=== PATIENT | male | born 1980 | race Caucasian/White ===

== ENCOUNTER 2018-05-10 07:34 | Day surgery (SDC) | payer BC ==
[2018-05-05 11:28] VITALS: BMI 21.7
[~2018-05-10 07:34] MED LIST: LACTATED RINGERS 1,000 ML IV SCH
[2018-05-10 07:52] VITALS: RESP 16; TEMP 98.4
[2018-05-10] MEDS ORDERED: PROPOFOL 10 MG/ML 20 ML VIAL IV ONE (09:17)
[2018-05-10] MEDS ORDERED: LIDOCAINE 1% INJ 10MG/ML (20 ML MDV) ONE (09:17)
--- NOTE | 2018-05-10 09:34 | P.GSHP ---
History of Present Illness H&P Date: 05/10/18 Chief Complaint: GI bleed Is a 38-year-old male from Dr. Hebert Jackson. Patient's a history of GI bleed. Today for EGD and colonoscopy. Past Medical History Past Medical History: GI Bleed Additional Past Medical History / Comment(s): rectal bleeding; nausea/vomiting History of Any Multi-Drug Resistant Organisms: None Reported Past Surgical History: No Surgical Hx Reported Additional Past Surgical History / Comment(s): Colonoscopy/EGD Past Anesthesia/Blood Transfusion Reactions: No Reported Reaction Smoking Status: Current every day smoker - Past Family History Father Family Medical History: Coronary Artery Disease (CAD), Hypertension, Myocardial Infarction ([place]) Mother History Unknown: Yes Family Medical History: No Reported History Medications and Allergies Home Medications Medication Instructions Recorded Confirmed Type Ranitidine HCl 150 mg PO BID 05/05/18 05/10/18 History buPROPion HCL [Wellbutrin XL] 300 mg PO DAILY 05/05/18 05/10/18 History Allergies Allergy/AdvReac Type Severity Reaction Status Date / Time No Known Allergies Allergy Verified 05/10/18 07:44 Surgical - Exam Vital Signs Temp Pulse Resp BP Pulse Ox 98.4 F 76 16 141/76 98 05/10/18 07:51 05/10/18 07:51 05/10/18 07:51 05/10/18 07:51 05/10/18 07:51 - General well developed, no distress - Eyes PERRL - ENT normal pinna - Neck no masses - Respiratory normal expansion - Cardiovascular Rhythm: regular - Abdomen Abdomen: soft, non tender Assessment and Plan Assessment: GI bleed. We'll perform EGD and colonoscopy.
--- NOTE | 2018-05-10 09:56 | P.OP ---
Date of Procedure: 05/10/18 Preoperative Diagnosis: GI bleed Postoperative Diagnosis: Hemorrhoids Antral gastritis Hiatal hernia Mild esophagitis Procedure(s) Performed: EGD Colonoscopy Anesthesia: MAC Surgeon: Ameya Tobar Pathology: other (Antrum, esophagus) Condition: stable Disposition: PACU Description of Procedure: The patient's placed on the endoscopy table in the lateral position. He received IV sedation. Digital rectal exam was performed which revealed external hemorrhoids. Flexible colonoscope was then placed patient anus passed rotator entire colon. The ileocecal valve was visualized. Cecum, ascending and transverse colon appeared normal. In the descending sigmoid colon there was no evidence of diverticulosis. Scope was brought back the rectum this appeared normal. Scope was withdrawn through the anus and some internal hemorrhoids are seen. There is no evidence of any active GI bleed. It was thought that the patient most likely had some bleeding from his hemorrhoids. Next the gastroscope placed oropharynx passed in the esophagus and stomach. Scope the pylorus. The first and second portion of the duodenum appeared normal. Scope was then brought back the antrum appeared mildly inflamed. A biopsies performed. Scope was then retroflexed the remainder some appeared normal. There was a small hiatal hernia. The GE junction was at 38 cm through the distal esophagus appeared mildly inflamed a biopsies performed. The proximal esophagus appeared normal. Scope was withdrawn for patient.
[2018-05-10 10:17] VITALS: BP 109/68; PULSE 76
== END 2018-05-10 10:50 | disposition home or self-care (01) ==
LOC: ORWHC2ENDO 07:34
PROVIDERS: ATTEND Surgery
DX: K20.0 Eosinophilic esophagitis (principal); K29.60 Other gastritis without bleeding; K44.9 Diaphragmatic hernia without obstruction or gangrene; K64.8 Other hemorrhoids; K64.4 Residual hemorrhoidal skin tags; F17.210 Nicotine dependence, cigarettes, uncomplicated; Z79.899 Other long term (current) drug therapy
CPT/HCPCS: 88305; 45378; 43239; J2001; J2704

== ENCOUNTER → 2018-05-23 | Outpatient (CLI) | payer BC ==
[2018-05-23 13:43] LABS: Basophils % (A) 0 %; Eosinophils # (A) 0.3 k/uL (0-0.7); Eosinophils % (A) 4 %; HCT 42.4 % (39.0-53.0); HGB 13.7 gm/dL (13.0-17.5); Lymphocytes # (A) 1.5 k/uL (1.0-4.8); Lymphocytes % (A) 25 %; MCH 30.6 pg (25.0-35.0); MCHC 32.3 g/dL (31.0-37.0); MCV 94.6 fL (80.0-100.0); Mean Platelet Volume 7.2; Monocytes # (A) 0.3 k/uL (0-1.0); Monocytes % (A) 5 %; Neutrophils % (A) 64 %; Platelet Count 213 k/uL (150-450); RBC 4.48 m/uL (4.30-5.90); RDW 14.4 % (11.5-15.5); WBC 6.2 k/uL (3.8-10.6)
== END ==
LOC: LABPAT 12:16
PROVIDERS: ATTEND Surgery
DX: Z01.812 Encounter for preprocedural laboratory examination (principal); D64.9 Anemia, unspecified; K21.9 Gastro-esophageal reflux disease without esophagitis; F17.200 Nicotine dependence, unspecified, uncomplicated
CPT/HCPCS: 36415; 85025

== ENCOUNTER 2018-05-31 11:33 | Observation (INO) | payer BC ==
[2018-05-23 10:47] VITALS: BMI 21.7
[~2018-05-31 11:33] MED LIST changes: +DEXAMETHASONE SOD PHOSPHATE 10 MG/ML 1 ML VIAL IV ONE; +HEPARIN SODIUM,PORCINE 5,000 UNIT/ML 1 ML VIAL SQ ONE; -LACTATED RINGERS 1,000 ML IV SCH; +LIDOCAINE 1% 20 ML VIAL (10MG/ML) FOR IV START INTRADERMA PRN; +MIDAZOLAM 2 MG/2 ML VIAL IV PRN; +ONDANSETRON 4 MG/2 ML VIAL IVP ONE; +SCOPOLAMINE 1.5MG/72HR PATCH TRANSDERM ONE; +ceFAZolin IN SWFI 2 GM/20 ML SYRINGE IVP ONE
[2018-05-31] MEDS ORDERED: SUCCINYLCHOLINE CHLORIDE 100 MG/5 ML SYR IV ONE (12:09)
[2018-05-31] MEDS ORDERED: KETAMINE 10 MG/ML 20 ML VIAL ONE (12:09)
[2018-05-31] MEDS ORDERED: GLYCOPYRROLATE 0.2 MG/ML 2 ML VIAL ONE (12:09)
[2018-05-31] MEDS ORDERED: NEOSTIGMINE 1 MG/ML 10 ML VIAL ONE (12:09)
[2018-05-31] MEDS ORDERED: LIDOCAINE 1% INJ 10MG/ML (20 ML MDV) ONE (12:09)
[2018-05-31] MEDS ORDERED: PROPOFOL 10 MG/ML 20 ML VIAL IV ONE (12:09)
[2018-05-31] MEDS ORDERED: MIDAZOLAM 2 MG/2 ML VIAL ONE (12:09)
[2018-05-31] MEDS ORDERED: ROCURONIUM BROMIDE 10 MG/ML 10 ML VIAL IV ONE (12:09)
[2018-05-31] MEDS ORDERED: ePHEDrine SULFATE/0.9% NACL/PF 50 MG/5 ML SYRINGE IV ONE (12:09)
[2018-05-31] MEDS ORDERED: fentaNYL (PF) 50 MCG/ML 2 ML AMP ONE (12:09)
[2018-05-31] MEDS: LACTATED RINGERS 1,000 ML IV SCH (12:20)
--- NOTE | 2018-05-31 13:00 | P.ONQ ---
Anesthesiology Proc Note - PNB - Peripheral Nerve Block Performed Transversus Abdominis Procedure Start Time: 12:28 Procedure Stop Time: 12:33 Indication: Acute Post-Operative Pain, Requested by physician Sedation Type: Sedate with meaningful contact maintained Preparation: Sterile Prep Position: Supine Catheter: None Needle Types: On-Q Needle Size: 50mm (2") Needle Gauge: 20 Technique: Ultrasound Injectate: Other (see comment) (ropivacaine 0.375% 20cc on each side (40cc total )) Blood Aspirated: No Pain Paresthesia on Injection Noted: No Resistance on Injection: Normal Events: Uneventful and Well Tolerated
--- NOTE | 2018-05-31 14:52 | P.GSHP ---
History of Present Illness H&P Date: 05/31/18 Chief Complaint: GERD This is a 38-year-old male referred from Dr. Caldwell. MThe patient has had long- standing problems with reflux esophagitis. The patient underwent recent EGD is found have evidence of esophagitis. Patient has been well informed on the procedure of laparoscopic Natalie fundoplication. The patient is aware the risk of the conversion to the open procedure, risk of injury to the stomach, liver and spleen. The patient is also a risk of recurrent GERD and dysphagia symptoms. The patient understands there is a postoperative diet of full liquids for 2 weeks after surgery. Past Medical History Past Medical History: GI Bleed Additional Past Medical History / Comment(s): rectal bleeding; nausea/vomiting. HIATAL HERNIA. ABSCESSES IN MOUTH-DR. MG EDWARD PER PT. LESION REMOVED FROM LT CREASE OF MOUTH History of Any Multi-Drug Resistant Organisms: None Reported Past Surgical History: No Surgical Hx Reported Additional Past Surgical History / Comment(s): Colonoscopy/EGD. HAVING TEETH PULLED 05/26/18 Past Anesthesia/Blood Transfusion Reactions: No Reported Reaction Smoking Status: Current every day smoker - Past Family History Father Family Medical History: Coronary Artery Disease (CAD), Hypertension, Myocardial Infarction ([place]) Mother History Unknown: Yes Family Medical History: No Reported History Medications and Allergies Home Medications Medication Instructions Recorded Confirmed Type Ranitidine HCl 150 mg PO BID 05/05/18 05/31/18 History buPROPion HCL [Wellbutrin XL] 300 mg PO DAILY 05/05/18 05/31/18 History Allergies Allergy/AdvReac Type Severity Reaction Status Date / Time No Known Allergies Allergy Verified 05/31/18 12:07 Surgical - Exam Vital Signs Temp Pulse Resp BP Pulse Ox 98.2 F 76 16 115/68 100 05/31/18 12:42 05/31/18 12:42 05/31/18 12:42 05/31/18 12:42 05/31/18 12:42 - General well developed, no distress - Eyes PERRL - ENT normal pinna - Neck no masses - Respiratory normal expansion - Cardiovascular Rhythm: regular - Abdomen Abdomen: soft, non tender Assessment and Plan Assessment: GERD. We'll perform laparoscopic Natalie fundoplication.
[2018-05-31] MEDS ORDERED: BUPIVACAIN-EPI 0.5%-1:200,000 30 ML VIAL SQ ONE (15:32)
--- NOTE | 2018-05-31 16:06 | P.OP ---
Date of Procedure: 05/31/18 Preoperative Diagnosis: GERD Postoperative Diagnosis: GERD Procedure(s) Performed: Laparoscopic Natalie fundal plication Anesthesia: JERZYA Surgeon: Ameya Tobar Estimated Blood Loss (ml): 5 Pathology: none sent Condition: stable Disposition: PACU Description of Procedure: Harmonic Natalie
[2018-05-31] MEDS: HYDROmorphone 0.5 MG/0.5 ML SYRINGE IVP PRN ×4 (16:45→17:08)
[2018-05-31] MEDS ORDERED: fentaNYL (PF) 50 MCG/ML 2 ML AMP IV ONE (17:05)
[2018-05-31] MEDS: fentaNYL (PF) 50 MCG/ML 2 ML AMP IV ONE ×3 (17:20→17:30)
[2018-05-31] MEDS: METOCLOPRAMIDE 5 MG/ML 2 ML VIAL IVP SCH (18:52)
[2018-05-31] MEDS: D5-0.45% NACL WITH KCL 20MEQ/L 1,000 ML IV SCH (22:35)
[2018-05-31] MEDS: HYDROmorphone 1 MG/ML 1 ML SYRINGE IVP PRN (22:58)
[2018-06-01] MEDS: METOCLOPRAMIDE 5 MG/ML 2 ML VIAL IVP SCH ×3 (00:37→13:54)
[2018-06-01] MEDS: HYDROmorphone 1 MG/ML 1 ML SYRINGE IVP PRN ×2 (03:24→08:12)
[2018-06-01] MEDS: D5-0.45% NACL WITH KCL 20MEQ/L 1,000 ML IV SCH ×2 (05:33→13:54)
[2018-06-01] MEDS: LACTATED RINGERS 1,000 ML IV SCH (07:05)
[2018-06-01 07:45] LABS: Basophils % (A) 0 %; Eosinophils % (A) 0 %; HCT 35.1 % (39.0-53.0); HGB 11.8 gm/dL (13.0-17.5); Lymphocytes # (A) 1.5 k/uL (1.0-4.8); Lymphocytes % (A) 21 %; MCH 31.3 pg (25.0-35.0); MCHC 33.5 g/dL (31.0-37.0); MCV 93.5 fL (80.0-100.0); Mean Platelet Volume 7.4; Monocytes # (A) 0.3 k/uL (0-1.0); Monocytes % (A) 5 %; Neutrophils # (A) 5.4 k/uL (1.3-7.7); Neutrophils % (A) 73 %; Platelet Count 169 k/uL (150-450); RBC 3.75 m/uL (4.30-5.90); RDW 14.5 % (11.5-15.5); WBC 7.3 k/uL (3.8-10.6)
[2018-06-01 08:38] VITALS: BP 119/82; PULSE 71; RESP 18; TEMP 97.7
[2018-06-01] MEDS ORDERED: buPROPion XL 300 MG TAB.ER.24H PO SCH (09:00)
[2018-06-01] MEDS ORDERED: ENOXAPARIN 40 MG/0.4 ML SYRINGE SQ SCH (09:00)
[2018-06-01] MEDS ORDERED: NICOTINE 14MG/24HR PATCH TRANSDERM SCH (09:00)
--- NOTE | 2018-06-01 10:29 | FL ---
EXAMINATION TYPE: FL esophagus cervic/pharynx DATE OF EXAM: 06/01/2018 HISTORY: Status post Natalie fundoplication. COMPARISON: NONE TECHNIQUE: A double contrast esophagram is performed utilizing air and barium. 15 mL of Isovue-370 was given. 48 seconds of fluoroscopy time was utilized with 13 images saved. FINDINGS: The patient swallowed contrast without difficulty or delay. Esophageal peristalsis and mo tility are within normal limits. There is good flow of contrast along the diaphragmatic hiatus into t he stomach, there is no evidence of contrast extravasation to suggest leak. No persistent hiatal blnaca ia is seen. Patient remains asymptomatic. IMPRESSION: No evidence of leak or significant obstruction status post Demar fundoplication.
--- NOTE | 2018-06-01 10:32 | P.CONS ---
History of Present Illness - Reason for Consult Consult date: 06/01/18 Medical management Requesting physician: Ameya Tobar - Chief Complaint GERD - History of Present Illness 38-year-old male who underwent elective laparoscopic Natalie fundoplication on 05/31/[address] Caldwell was consulted for medical management. The patient has a history of gastroesophageal reflux disease, anxiety, and depression. He is a current cigarette smoker and reports smoking between half and one pack per day. The patient had abscesses in his mouth and had multiple front teeth removed recently. The patient was seen and examined at the bedside this morning with Dr. Caldwell. Patient is awake and alert. He states his abdomen feels sore but his pain is tolerable at this time. He has been tolerating ice chips and sips of water. He is scheduled for a swallow evaluation with fluoroscopy today to rule out leak /obstruction. Hemoglobin 11.8. Vital signs have been stable. He is afebrile. The patient is anticipating discharge home this afternoon today. Review of Systems Those systems with pertinent positive or pertinent negative responses have been documented in the HPI Past Medical History Past Medical History: GI Bleed Additional Past Medical History / Comment(s): rectal bleeding; nausea/vomiting. HIATAL HERNIA. ABSCESSES IN MOUTH-DR. TOBAR AWATE PER PT. LESION REMOVED FROM LT CREASE OF MOUTH History of Any Multi-Drug Resistant Organisms: None Reported Past Surgical History: No Surgical Hx Reported Additional Past Surgical History / Comment(s): Colonoscopy/EGD. HAVING TEETH PULLED 05/26/18 Past Anesthesia/Blood Transfusion Reactions: No Reported Reaction Past Psychological History: Anxiety, Depression Smoking Status: Former smoker Past Alcohol Use History: None Reported Additional Past Alcohol Use History / Comment(s): has smoked about 1 1/2 ppd for about 20 years; smokes Marijuana daily Past Drug Use History: Marijuana Additional Drug Use History / Comment(s): LAST USED MARIJUANA 1 WEEK AGO- INSTRUCTED TO REFRAIN FROM USE FOR AT LEAST 24 HOURS PRIOR TO PROCEDURE. Pt. reports the last time he smoked marijuana WAS 05/29 - Past Family History Father Family Medical History: Coronary Artery Disease (CAD), Hypertension, Myocardial Infarction ([place]) Mother History Unknown: Yes Family Medical History: No Reported History Medications and Allergies Home Medications Medication Instructions Recorded Confirmed Type Ranitidine HCl 150 mg PO BID 05/05/18 06/01/18 History buPROPion HCL [Wellbutrin XL] 300 mg PO DAILY 05/05/18 06/01/18 History Allergies Allergy/AdvReac Type Severity Reaction Status Date / Time No Known Allergies Allergy Verified 06/01/18 09:36 Physical Exam Vitals: Vital Signs Temp Pulse Resp BP BP Pulse Ox 06/01/18 08:05 97.7 F 71 18 119/82 99 05/31/18 23:00 98.2 F 60 16 110/71 97 05/31/18 20:48 62 117/73 96 05/31/18 20:34 69 102/65 97 05/31/18 20:18 72 108/69 05/31/18 20:03 75 114/70 96 05/31/18 19:48 92 119/80 96 05/31/18 19:33 62 109/65 05/31/18 19:18 65 113/69 95 05/31/18 19:03 71 118/73 99 05/31/18 18:45 77 125/70 05/31/18 18:36 97.8 F 80 12 119/79 05/31/18 17:45 75 14 122/70 100 05/31/18 17:30 71 14 116/70 100 05/31/18 17:15 81 14 130/80 100 05/31/18 17:00 73 14 130/79 100 05/31/18 16:45 76 14 124/76 98 05/31/18 16:31 67 14 134/75 98 05/31/18 16:15 62 14 134/76 98 05/31/18 16:08 97.8 F 66 14 137/71 98 05/31/18 12:42 98.2 F 76 16 115/68 100 Intake and Output 05/31/18 06/01/18 06/01/18 22:59 06:59 14:59 Intake Total 800 Output Total 10 650 500 Balance 790 -650 -500 Intake: IV 800 Output: Urine 650 500 Estimated Blood Loss 10 Other: # Voids 1 GENERAL: This is a 38-year-old male in no apparent distress at the time of examination. Pleasant and cooperative. HEENT: Head is atraumatic, normocephalic. Pupils are equal, round, and reactive to light. Sclerae anicteric. Conjunctivae are clear. Mucus membranes of the mouth are moist. Neck is supple. Poor dentition with recent extraction noted. RESPIRATORY: Clear to ausculation. No wheezes, rales, or rhonchi. No use of accessory muscles. Patient maintaining oxygen saturation greater than 92%. No chest wall tenderness is noted on palpation or with deep breathing. CARDIOVASCULAR: Regular rate and rhythm. S1 and S2 noted. No JVD noted. No S3 or S4 noted. GASTROINTESTINAL: I prescribed Surgical sites without drainage. No distention noted. Abdomen soft and round. Hypoactive bowel sounds auscultated x 4 quadrants. Mild tenderness noted upon palpation. INTEGUMENTARY: No cyanosis. No jaundice. No rashes noted. No cellulitis noted. EXTREMITIES: 2+ peripheral pulses. No evidence of peripheral edema. No calf tenderness noted. NEUROLOGIC: Cranial nerves II-XII intact. PSYCHIATRIC: Awake, alert, and oriented X 3. Appropriate affect. Intact judgement and insight. Results CBC & Chem 7: 06/01/18 06:37 Labs: Abnormal Lab Results - Last 24 Hours (Table) 06/01/18 Range/Units 06:37 RBC 3.75 L (4.30-5.90) m/uL Hgb 11.8 L (13.0-17.5) gm/dL Hct 35.1 L (39.0-53.0) % Assessment and Plan Plan: ASSESSMENT: Gastroesophageal reflux disease status post laparoscopic Natalie fundoplication Multiple dental abscesses with recent tooth extractions History of anxiety and depression History of nicotine dependence, patient reports smoking 1/2-1 pack daily Cannabis use PLAN: Continue postoperative surgical care per Dr. Tobar Will order nicotine patch daily Home meds as appropriate Monitor labs Monitor vital signs and address as appropriate Further recommendations pending patient's course Patient is cleared for discharge from a medical standpoint when cleared by admitting/attending physician Thank you for this consultation We will continue to follow along with Xavier during his hospitalization Nurse practitioner note has been reviewed by physician. Signing provider agrees with the documented findings, assessment, and plan of care.
--- NOTE | 2018-06-01 11:46 | P.DS ---
Providers Date of admission: 06/01/18 06:39 Expected date of discharge: 06/01/18 Attending physician: Ameya Tobar Consults: 06/01/18 08:18 Consult Physician Urgent Consulting Provider: Hebert Caldwell Consult Reason/Comments: [facility] [place] Do you want consulting provider notified?: Yes Primary care physician: Hebert [facility] Course: 38-year-old male who presents in [place] basis to undergo laparoscopic natalie procedure for long-standing problem with reflux esophagitis. Patient underwent a recent EGD and was found have evidence of esophagitis. Patient underwent procedure on May 31 laparoscopic natalie fundoplication for symptomatic esophageal reflux. No postop events. Patient was ambulatory on the unit tolerating a natalie clear liquid diet Esophagram no evidence of a leak significant obstruction Impression discharge diagnosis Symptomatic reflux esophagitis Recent EGD showing evidence of esophagitis Status post May 31 laparoscopic Natalie fundoplication for symptomatic esophageal reflux disease The above impression and plan of care have been discussed and directed by signing physician. Yarely Haynes nurse practitioner acting as scribe for signing physician. Plan - Discharge Summary Discharge Rx Participant: Yes New Discharge Prescriptions: New HYDROcodone/APAP 5-325MG [[place] 5-325] 1 tab PO Q6HR PRN 3 Days #12 tab PRN Reason: Mild Breakthrough Pain Continue buPROPion HCL [Wellbutrin XL] 300 mg PO DAILY Ranitidine HCl 150 mg PO BID Discharge Medication List Ranitidine HCl 150 mg PO BID 05/05/18 [History] buPROPion HCL [Wellbutrin XL] 300 mg PO DAILY 05/05/18 [History] HYDROcodone/APAP 5-325MG [[place] 5-325] 1 tab PO Q6HR PRN 3 Days #12 tab [Rx] Follow up Appointment(s)/Referral(s): Ameya Tobar MD [STAFF PHYSICIAN] - 1 Week Activity/Diet/Wound Care/Special Instructions: No tub bath for six weeks. Shower daily. No lifting over 10 pounds for the next 4 weeks. Did not remove plastic surgical dressings May use ice packs to surgical site. No driving while taking narcotic for pain. Discharge Disposition: HOME SELF-CARE
== END 2018-06-01 14:48 | disposition home or self-care (01) ==
LOC: OR 11:33 → 4SSUR 17:27 → OR 06-01 06:39
PROVIDERS: ADMIT Surgery; ATTEND Surgery
DX: K21.0 Gastro-esophageal reflux disease with esophagitis (principal); K44.9 Diaphragmatic hernia without obstruction or gangrene; F17.210 Nicotine dependence, cigarettes, uncomplicated; F32.9 Major depressive disorder, single episode, unspecified; F41.9 Anxiety disorder, unspecified; F12.90 Cannabis use, unspecified, uncomplicated; K04.7 Periapical abscess without sinus; Z98.818 Other dental procedure status; Z79.899 Other long term (current) drug therapy; Z87.19 Personal history of other diseases of the digestive system; Z82.49 Family history of ischemic heart disease and other diseases of the circulatory system
CPT/HCPCS: 85025; 74210; 43280; 64488; G0378; S4990; J2250; J1644; J1100; J2710; J2765 ×2; J2405; J2001; J1650; J3010; J1170 ×3; J0330; J2704; J0690; Q9967; 86850; 86900; 86901

== ENCOUNTER → 2018-07-20 | Outpatient (CLI) | payer BC ==
--- NOTE | 2018-07-20 11:44 | FL ---
EXAMINATION TYPE: FL barium swallow DATE OF EXAM: 07/20/2018 LIMITED UGI-ESOPHAGRAM: CLINICAL HISTORY: Dysphasia and vomiting with solid food since Demar fundoplication surgery June 01, 2018 TECHNIQUE: Limited esophagram is performed utilizing 10 oz of ez Paque. A total of 31 seconds of flu oroscopic time was utilized during procedure. 15 spot images are saved to PACS. FINDINGS: The patient swallowed contrast without difficulty or delay. Esophageal peristalsis and mo tility are within normal limits. There is good flow of contrast along the diaphragmatic hiatus into t he stomach with adjacent surrounding sutures seen just below diaphragm, there is no evidence of contr ast extravasation to suggest leak. No persistent hiatal hernia is seen. Patient remains asymptomatic. IMPRESSION: No evidence of leak or significant obstruction status post Demar fundoplication surgery . Images saved for ordering surgeon.
== END | disposition home or self-care (01) ==
LOC: RADFLWHC 10:49
PROVIDERS: ATTEND Surgery
DX: R13.10 Dysphagia, unspecified (principal); K21.9 Gastro-esophageal reflux disease without esophagitis; Z98.890 Other specified postprocedural states
CPT/HCPCS: 74220

== ENCOUNTER 2018-07-25 07:41 | Day surgery (SDC) | payer BC ==
[2018-07-20 14:54] VITALS: BMI 20.3
[~2018-07-25 07:41] MED LIST changes: -DEXAMETHASONE SOD PHOSPHATE 10 MG/ML 1 ML VIAL IV ONE; -HEPARIN SODIUM,PORCINE 5,000 UNIT/ML 1 ML VIAL SQ ONE; +LACTATED RINGERS 1,000 ML IV SCH; -MIDAZOLAM 2 MG/2 ML VIAL IV PRN; -ONDANSETRON 4 MG/2 ML VIAL IVP ONE; -SCOPOLAMINE 1.5MG/72HR PATCH TRANSDERM ONE; -ceFAZolin IN SWFI 2 GM/20 ML SYRINGE IVP ONE
[2018-07-25 08:05] VITALS: TEMP 97.8
[2018-07-25] MEDS ORDERED: LACTATED RINGERS 1,000 ML IV ONE (08:05)
[2018-07-25] MEDS ORDERED: PROPOFOL 10 MG/ML 20 ML VIAL IV ONE (08:42)
[2018-07-25] MEDS ORDERED: LIDOCAINE 1% INJ 10MG/ML (20 ML MDV) ONE (08:42)
--- NOTE | 2018-07-25 08:50 | P.GSHP ---
History of Present Illness H&P Date: 07/25/18 Chief Complaint: Dysphagia This is a 38-year-old male who presents for EGD. He's had complaints of dysphagia. Patient had a previous hiatal hernia repair. His recent esophagram shows no evidence of obstruction or reflux. The patient is edentulous. He does not have a lower plate. I believe his problem is due to poor chewing of fluid. Due to the patient's progressive dysphagia. He is undergoing EGD today. Past Medical History Past Medical History: GI Bleed Additional Past Medical History / Comment(s): Hx rectal bleeding; nausea/ vomiting. HIATAL HERNIA. History of Any Multi-Drug Resistant Organisms: None Reported Past Surgical History: No Surgical Hx Reported Additional Past Surgical History / Comment(s): Colonoscopy/EGD Past Anesthesia/Blood Transfusion Reactions: No Reported Reaction Smoking Status: Current every day smoker - Past Family History Father Family Medical History: Coronary Artery Disease (CAD), Hypertension, Myocardial Infarction ([place]) Mother History Unknown: Yes Family Medical History: No Reported History Medications and Allergies Home Medications Medication Instructions Recorded Confirmed Type buPROPion HCL [Wellbutrin SR] 150 mg PO DAILY 07/20/18 07/20/18 History Allergies Allergy/AdvReac Type Severity Reaction Status Date / Time No Known Allergies Allergy Verified 07/20/18 14:49 Surgical - Exam Vital Signs Temp Pulse Resp BP Pulse Ox 97.8 F 78 18 130/80 100 07/25/18 08:04 07/25/18 08:04 07/25/18 08:04 07/25/18 08:04 07/25/18 08:04 - General well developed, no distress - Eyes PERRL - ENT normal pinna - Neck no masses - Respiratory normal expansion - Cardiovascular Rhythm: regular - Abdomen Abdomen: soft, non tender Assessment and Plan Assessment: Dysphagia. We'll perform EGD.
--- NOTE | 2018-07-25 08:59 | P.OP ---
Date of Procedure: 07/25/18 Preoperative Diagnosis: Dysphagia Postoperative Diagnosis: Dysphagia Procedure(s) Performed: EGD with balloon dilatation Anesthesia: MAC Surgeon: Ameya Tobar Pathology: none sent Condition: stable Disposition: PACU Description of Procedure: The patient's placed on the endoscopy table in the lateral position. He received IV sedation. The gastroscope placed oropharynx passed in the esophagus and stomach. Scope was then placed through the pylorus. The first second portion of duodenum appeared normal. Scope was then brought back the antrum and this appeared normal. Scope was then retroflexed and there is no evidence of hiatal hernia. Due to the patient's symptoms and dysphagia a 20 mm balloon was placed across the GE junction and this was held in position for 3 minutes. This was done sequentially twice. This balloon was then removed. There is known to any injury to the stomach or esophagus. The distal esophagus. Normal. The proximal esophagus appeared normal. Scope was withdrawn for patient.
[2018-07-25 09:09] VITALS: RESP 16
[2018-07-25 09:57] VITALS: BP 126/92; PULSE 75
== END 2018-07-25 10:00 | disposition home or self-care (01) ==
LOC: ORWHC2ENDO 07:41
PROVIDERS: ATTEND Surgery
DX: R13.10 Dysphagia, unspecified (principal); F17.200 Nicotine dependence, unspecified, uncomplicated; F39 Unspecified mood [affective] disorder; K92.2 Gastrointestinal hemorrhage, unspecified; Z82.49 Family history of ischemic heart disease and other diseases of the circulatory system; Z79.899 Other long term (current) drug therapy
CPT/HCPCS: 43249; J2001; J2704; C1726

== ENCOUNTER 2019-05-11 14:18 | Emergency (ER) | payer BC ==
[2019-05-11 14:24] VITALS: RESP 18; TEMP 97.6
[2019-05-11 15:01] VITALS: PULSE 80
[2019-05-11] MEDS ORDERED: ONDANSETRON 4 MG/2 ML VIAL IVP STA (15:01)
[2019-05-11] MEDS ORDERED: SODIUM CHLORIDE 0.9% 1,000 ML IV STA (15:01)
[2019-05-11] MEDS ORDERED: MORPHINE SULFATE 4 MG/ML SYRINGE IVP PRN (15:23)
[2019-05-11 15:40] LABS: ALT 41 U/L (21-72); AST 48 U/L (17-59); African American GFR (CKD) >90 (>60 ml/min/1.73 sqM); Albumin 4.9 g/dL (3.5-5.0); Alkaline Phosphatase 45 U/L (38-126); Anion Gap 13 mmol/L; Blood Urea Nitrogen 22 mg/dL (9-20); Calcium 9.6 mg/dL (8.4-10.2); Carbon Dioxide 25 mmol/L (22-30); Chloride 104 mmol/L (98-107); Glucose 83 mg/dL (74-99); Potassium 4.2 mmol/L (3.5-5.1); Sodium 142 mmol/L (137-145); Total Bilirubin 0.5 mg/dL (0.2-1.3); Total Protein 9.2 g/dL (6.3-8.2)
[2019-05-11 15:45] LABS: HCT 42.8 % (39.0-53.0); HGB 15.1 gm/dL (13.0-17.5); MCH 32.5 pg (25.0-35.0); MCHC 35.2 g/dL (31.0-37.0); MCV 92.3 fL (80.0-100.0); Platelet Count 199 k/uL (150-450); RBC 4.64 m/uL (4.30-5.90); RDW 14.3 % (11.5-15.5); WBC 12.6 k/uL (3.8-10.6)
--- NOTE | 2019-05-11 15:50 | ED ---
General Adult HPI - General Chief complaint: Abdominal Pain Stated complaint: Chest Pain Time Seen by Provider: 05/11/19 15:01 Source: patient Mode of arrival: ambulatory Limitations: no limitations - History of Present Illness Initial comments: Dictation was produced using [employer] dictation software. please excuse any grammatical, word or spelling errors. Chief Complaint: 39-year-old male presents with chest pain after eating. History of Present Illness: A 81-year-old male presents with chest pain after eating. Patient states that May last year he had surgery on his hiatal hernia. Surgery was performed by Dr. gerard. Patient reports that ever since his surgery he hasn't been having chest pain symptoms. Today he had some macaroni and cheese when he became significantly nauseated. He was trying to throw power feels like he can't. Patient states he had sharp chest pain. He does complain of some diaphoresis along with his symptoms. His symptoms lasted for several minutes and then resolved on its own. Patient has had his surgery evaluated at multiple occasions. He has had balloon dilatation and multiple upper endoscopies. Patient has had similar symptoms frequently over the course of the last several months. The ROS documented in this emergency department record has been reviewed and confirmed by me. Those systems with pertinent positive or negative responses have been documented in the HPI. All other systems are other negative and/or noncontributory. PHYSICAL EXAM: General Impression: Alert and oriented x3, not in acute distress HEENT: Normocephalic atraumatic, extra-ocular movements intact, pupils equal and reactive to light bilaterally, mucous membranes moist. Cardiovascular: Heart regular rate and rhythm, S1&S2 audible, no murmurs, rubs or gallops Chest: Lungs clear to auscultation bilaterally, no rhonchi, no wheeze, no rales Abdomen: Bowel sounds present, abdomen soft, non-tender, non-distended, no organomegaly Musculoskeletal: Pulses present and equal in all extremities, no peripheral edema Motor: no focal deficits noted Neurological: CN II-XII grossly intact, no focal motor or sensory deficits noted Skin: Intact with no visualized rashes Psych: Normal affect and mood ED course: 39 Old male presents with epigastric abdominal, dry heaving and diaphoresis. Signs upon arrival shows findings within acceptable limits. Patient well-appearing at bedside. EKG does not suggest ST segment elevation LA. Laboratory evaluation obtained. Mild leukocytosis of 12.6. Metabolic panel is unremarkable. Urinalysis is unremarkable. Patient's symptoms are GI related. She is concerned that maybe patient's symptoms were secondary CT abdomen and pelvis was obtained showing mild ileus. Patient was comfortable being discharged with referral to GI. He is well-appearing at bedside. Abdomen is soft. Patient had no episodes of retching all observed in emergency department. He is well-appearing at bedside. Patient currently taking proton pump inhibitor. Patient was offered inpatient observation admission however for to go home. Patient given prescription for antiemetics and analgesics. EKG interpretation: Ventricular rate 93, normal sinus rhythm, GA interval 134, Q 74, QTC 435. No GA prolongation, no QTC prolongation, no ST or T-wave changes noted. No old EKG for comparison. Overall, this EKG is unremarkable - Related Data Home Medications Medication Instructions Recorded Confirmed Ibuprofen [Motrin Ib] 200 - 400 mg PO Q6H PRN 05/11/19 05/11/19 Previous Rx's Medication Instructions Recorded HYDROcodone/APAP 5-325MG [[place] 1 tab PO Q6HR PRN 3 Days #12 tab 05/11/19 5-325] Ondansetron Odt [Zofran Odt] 4 mg PO Q8HR PRN #12 tab 05/11/19 Allergies Allergy/AdvReac Type Severity Reaction Status Date / Time No Known Allergies Allergy Verified 05/11/19 16:25 Review of Systems ROS Statement: Those systems with pertinent positive or pertinent negative responses have been documented in the HPI. ROS Other: All systems not noted in ROS Statement are negative. Past Medical History Past Medical History: GI Bleed Additional Past Medical History / Comment(s): rectal bleeding; nausea/vomiting. HIATAL HERNIA. ABSCESSES IN MOUTH-DR. MG EDWARD PER PT. LESION REMOVED FROM LT CREASE OF MOUTH History of Any Multi-Drug Resistant Organisms: None Reported Past Surgical History: Hernia Repair Additional Past Surgical History / Comment(s): Colonoscopy/EGD. HAVING TEETH PULLED 05/26/18 Past Anesthesia/Blood Transfusion Reactions: No Reported Reaction Past Psychological History: Anxiety, Depression Smoking Status: Current every day smoker Past Alcohol Use History: None Reported Past Drug Use History: Marijuana - Past Family History Father Family Medical History: Coronary Artery Disease (CAD), Hypertension, Myocardial Infarction ([place]) Mother History Unknown: Yes Family Medical History: No Reported History General Exam Limitations: no limitations Course Vital Signs 05/11/19 05/11/19 14:22 14:58 Temperature 97.6 F Pulse Rate 88 80 Respiratory 18 18 Rate Blood Pressure 123/79 117/74 O2 Sat by Pulse 100 100 Oximetry Medical Decision Making - Lab Data Result diagrams: 05/11/19 15:15 05/11/19 15:15 Lab Results 05/11/19 05/11/19 05/11/19 Range/Units 15:15 15:15 16:00 WBC 12.6 H (3.8-10.6) k/uL RBC 4.64 (4.30-5.90) m/uL Hgb 15.1 (13.0-17.5) gm/dL Hct 42.8 (39.0-53.0) % MCV 92.3 (80.0-100.0) fL MCH 32.5 (25.0-35.0) pg MCHC 35.2 (31.0-37.0) g/dL RDW 14.3 (11.5-15.5) % Plt Count 199 (150-450) k/uL Neutrophils % (Manual) 80 % Band Neutrophils % 5 % Lymphocytes % (Manual) 9 % Monocytes % (Manual) 6 % Neutrophils # (Manual) 10.70 H (1.3-7.7) k/uL Lymphocytes # (Manual) 1.13 (1.0-4.8) k/uL Monocytes # (Manual) 0.76 (0-1.0) k/uL Nucleated RBCs 0 (0-0) /100 WBC Manual Slide Review Performed Toxic Granulation Present Hypochromasia (manual) Present Poikilocytosis (manual Present Anisocytosis (manual) Present Sodium 142 (137-145) mmol/L Potassium 4.2 (3.5-5.1) mmol/L Chloride 104 (98-107) mmol/L Carbon Dioxide 25 (22-30) mmol/L Anion Gap 13 mmol/L BUN 22 H (9-20) mg/dL Creatinine 0.86 (0.66-1.25) mg/dL Est GFR (CKD-EPI)AfAm >90 (>60 ml/min/1.73 sqM) Est GFR (CKD-EPI)NonAf >90 (>60 ml/min/1.73 sqM) Glucose 83 (74-99) mg/dL Calcium 9.6 (8.4-10.2) mg/dL Total Bilirubin 0.5 (0.2-1.3) mg/dL AST 48 (17-59) U/L ALT 41 (21-72) U/L Alkaline Phosphatase 45 (38-126) U/L Total Protein 9.2 H (6.3-8.2) g/dL Albumin 4.9 (3.5-5.0) g/dL Lipase 81 (23-300) U/L Urine Color Yellow Urine Appearance Clear (Clear) Urine pH 5.5 (5.0-8.0) Ur Specific [place] 1.030 (1.001-1.035) Urine Protein 1+ H (Negative) Urine Glucose (UA) Negative (Negative) Urine Ketones Trace H (Negative) Urine Blood Negative (Negative) Urine Nitrite Negative (Negative) Urine Bilirubin Negative (Negative) Urine Urobilinogen 2.0 (<2.0) mg/dL Ur Leukocyte Esterase Negative (Negative) Urine RBC 3 (0-5) /hpf Urine WBC 1 (0-5) /hpf Hyaline Casts 4 H (0-2) /lpf Urine Mucus Many H (None) /hpf Disposition Clinical Impression: Abdominal pain Disposition: HOME SELF-CARE Condition: Good Instructions (If sedation given, give patient instructions): Abdominal Pain (ED) Prescriptions: HYDROcodone/APAP 5-325MG [[place] 5-325] 1 tab PO Q6HR PRN 3 Days #12 tab PRN Reason: Severe Pain Ondansetron Odt [Zofran Odt] 4 mg PO Q8HR PRN #12 tab PRN Reason: Nausea Is patient prescribed a controlled substance at d/c from ED?: Yes If prescribed controlled substance>3 days was MAPS reviewed?: Prescribed <3 Days Referrals: Jony Briseno MD [STAFF PHYSICIAN] - 1-2 days Time of Disposition: 17:41
[2019-05-11 16:17] LABS: Appearance,Urine Clear (Clear); Bilirubin,Urine Negative (Negative); Blood,Urine Negative (Negative); Color,Urine Yellow; Glucose,Urine (UA) Negative (Negative); Hyaline Casts,Urine 4 /lpf (0-2); Ketones,Urine Trace (Negative); Leukocyte Esterase,Urine Negative (Negative); Mucus,Urine Many /hpf; Nitrite,Urine Negative (Negative); PH, Urine 5.5 (5.0-8.0); Protein,Urine 1+ (Negative); RBC,Urine 3 /hpf (0-5); WBC,Urine 1 /hpf (0-5)
[2019-05-11 16:20] LABS: Anisocytosis (M) Present; Band Neutrophils % 5 %; Hypochromasia (M) Present; Lymphocytes # (M) 1.13 k/uL (1.0-4.8); Monocytes # (M) 0.76 k/uL (0-1.0); Neutrophils % (M) 80 %; Nucleated Red Blood Cells 0 /100 WBC (0-0); Poikilocytosis (M) Present; Total Cells Counted 100; Toxic Granulation Present
--- NOTE | 2019-05-11 17:05 | CT ---
EXAMINATION TYPE: CT abdomen pelvis w con DATE OF EXAM: 05/11/2019 COMPARISON: None HISTORY: Upper Abdominal pain with Prior Hiatal hernia repair CT DLP: 647.7 mGycm Automated exposure control for dose reduction was used. TECHNIQUE: Helical acquisition of images was performed from the lung bases through the pelvis. CONTRAST: Performed without Oral Contrast and with IV Contrast, patient injected with 100 mL of Isovue 300. FINDINGS: There is subsegmental atelectasis at the posterior lung bases. There is no pleural effusion. Heart si ze is normal. Liver and spleen appear normal. Bile ducts are not dilated. Stomach is intact. There is no evidence o f pancreatic mass. Gallbladder appears normal. There is no adrenal mass. Kidneys show satisfactory contrast opacification. There is no hydronephrosi s. Ureters are not dilated. There is no sign of retroperitoneal adenopathy. Bladder distends smoothly . There is no inguinal hernia. There is no free fluid in the pelvis. There is no ascites or free air. There is no mesenteric edema. There are mild multiple fluid-filled loops of small bowel. I see no si gnificant intestinal wall thickening. Appendix is not seen. There is no sign of thickened appendix. Lumbar spine is intact. Bony pelvis is intact. IMPRESSION: SMALL BOWEL DISTENTION WITH FLUID. I DO NOT SEE EVIDENCE OF A MECHANICAL BOWEL OBSTRUCTION. THIS COUL D RELATE TO SOME ILEUS. NO FREE AIR.
[2019-05-11] MEDS ORDERED: ASPIRIN 81 MG PO STA (17:33)
[2019-05-11 18:05] VITALS: BP 93/61
== END 2019-05-11 18:06 | disposition home or self-care (01) ==
LOC: SUPCPDRO 14:18 → EC 14:18
DX: K56.7 Ileus, unspecified (principal); R61 Generalized hyperhidrosis; D72.829 Elevated white blood cell count, unspecified; R07.9 Chest pain, unspecified; F17.200 Nicotine dependence, unspecified, uncomplicated; Z87.19 Personal history of other diseases of the digestive system; Z98.890 Other specified postprocedural states
CPT/HCPCS: 36415; 93005; 80053; 83690; 85025; 81001; 74177; 99284; 96374; 96375; 96361; J2270; J2405; Q9967

== ENCOUNTER → 2019-05-28 | Outpatient (CLI) | payer BC ==
--- NOTE | 2019-05-28 11:59 | FL ---
EXAMINATION TYPE: FL UGI air w esophagus DATE OF EXAM: 05/28/2019 COMPARISON: NONE HISTORY: 39-year-old male with dysphagia, GERD, difficulty swallowing since Natalie fundoplication May. TECHNIQUE: A double contrast UGI study is performed. Total fluoroscopy time: 2.21 minutes Total images: 47 FINDINGS: The esophagus shows normal motility and emptying into the stomach. There is normal mucosa without ab normal narrowing or suspicious filling defect. Postsurgical changes of Natalie fundoplication are demonstrated. No recurrent hiatal hernia. No gastroesophageal reflux could be elicited with Valsalva or positional maneuvers. The stomach shows normal distensibility, peristalsis, and mucosal folds. No evidence of any mass or ulcer disease. No significant gastroesophageal reflux was seen during real time performance of this study. The duodenal bulb, sweep, and proximal small bowel loops are unremarkable. IMPRESSION: Status post Natalie fundoplication. Otherwise, unremarkable esophagram and upper GI examination.
== END | disposition home or self-care (01) ==
LOC: RADUSWWP 08:31
PROVIDERS: ATTEND Surgery
DX: K21.9 Gastro-esophageal reflux disease without esophagitis (principal); R13.10 Dysphagia, unspecified; Z98.890 Other specified postprocedural states
CPT/HCPCS: 74246

== ENCOUNTER 2019-06-01 09:20 | Day surgery (SDC) | payer BC ==
[2019-05-30 12:21] VITALS: BMI 21.1
[~2019-06-01 09:20] MED LIST changes: +DEXAMETHASONE SOD PHOSPHATE 10 MG/ML 1 ML VIAL IV ONE; +HYDROmorphone 0.5 MG/0.5 ML SYRINGE IVP PRN; +MIDAZOLAM 2 MG/2 ML VIAL IV PRN; +ONDANSETRON 4 MG/2 ML VIAL IVP ONE; +SCOPOLAMINE 1.5MG/72HR PATCH TRANSDERM ONE
[2019-06-01 09:37] VITALS: TEMP 97
[2019-06-01] MEDS ORDERED: PROPOFOL 10 MG/ML 20 ML VIAL IV ONE (10:43)
--- NOTE | 2019-06-01 10:45 | P.GSHP ---
History of Present Illness H&P Date: 06/01/19 Chief Complaint: Dysphagia This is a 39-year-old male with dysphagia. Patient rents today for EGD. Past Medical History Past Medical History: GI Bleed Additional Past Medical History / Comment(s): rectal bleeding; nausea/vomiting. HAS BEEN HAVING PROBLEMS WITH KEEPING FOOD DOWN, EPIGASTRIC PAIN AFTER EATING, History of Any Multi-Drug Resistant Organisms: None Reported Past Surgical History: Hernia Repair Additional Past Surgical History / Comment(s): Colonoscopy/EGD. BRITTNEY SX Past Anesthesia/Blood Transfusion Reactions: No Reported Reaction Additional Drug Use History / Comment(s): LAST USED MARIJUANA 1 WEEK AGO- INSTRUCTED TO REFRAIN FROM USE FOR AT LEAST 24 HOURS PRIOR TO PROCEDURE - Past Family History Father Family Medical History: Coronary Artery Disease (CAD), Hypertension, Myocardial Infarction ([place]) Mother History Unknown: Yes Family Medical History: No Reported History Medications and Allergies Home Medications Medication Instructions Recorded Confirmed Type HYDROcodone/APAP 5-325MG [[place] 1 tab PO Q6HR PRN 3 Days #12 tab 05/11/19 06/01/19 Rx 5-325] Ondansetron Odt [Zofran Odt] 4 mg PO Q8HR PRN #12 tab 05/11/19 06/01/19 Rx Allergies Allergy/AdvReac Type Severity Reaction Status Date / Time No Known Allergies Allergy Verified 06/01/19 09:37 Surgical - Exam Vital Signs Temp Pulse Resp BP Pulse Ox 97 F L 66 16 110/67 100 06/01/19 09:35 06/01/19 09:35 06/01/19 09:35 06/01/19 09:35 06/01/19 09:35 - General well developed, well nourished, no distress - Eyes PERRL - ENT normal pinna - Neck no masses - Respiratory normal expansion - Cardiovascular Rhythm: regular - Abdomen Abdomen: soft, non tender Assessment and Plan Assessment: Dysphagia. We'll perform EGD.
--- NOTE | 2019-06-01 11:02 | P.OP ---
Date of Procedure: 06/01/19 Preoperative Diagnosis: Dysphagia Postoperative Diagnosis: Antral gastritis No evidence of GE junction stricture Procedure(s) Performed: EGD Anesthesia: JAYLAN Surgeon: Ameya Tobar Pathology: other (Antrum) Condition: stable Disposition: PACU Description of Procedure: The patient's placed on the endoscopy table in the lateral position. He received IV sedation. The gastroscope placed oropharynx and passed in the esophagus and then the stomach. Scope was then placed through the pylorus. The first and second portion of the duodenum appeared normal. The scope was then brought back the antrum and this appeared mildly inflamed. Biopsies performed. Scope was then retroflexed and the remainder some appeared normal. The patient had a previous fundoplication wrap. The GE junction was at 40 cms. The scope was position at the GE junction there appeared to be no evidence of a stricture. Due to the patient's complaints of dysphagia a 20 mm balloon was held across the GE junction. The distal esophagus appeared normal. The proximal esophagus. Appeared normal. The scope was then withdrawn from the patient.
[2019-06-01] MEDS ORDERED: LACTATED RINGERS 1,000 ML IV ONE (11:09)
[2019-06-01 11:59] VITALS: BP 107/69; PULSE 53; RESP 16
== END 2019-06-01 12:10 | disposition home or self-care (01) ==
LOC: ORWHC2ENDO 09:20
PROVIDERS: ATTEND Surgery
DX: K29.50 Unspecified chronic gastritis without bleeding (principal); Z82.49 Family history of ischemic heart disease and other diseases of the circulatory system; R13.10 Dysphagia, unspecified; Z79.891 Long term (current) use of opiate analgesic; Z79.899 Other long term (current) drug therapy
CPT/HCPCS: 88305; 43239; 43249; J2704; C1726

== ENCOUNTER 2020-02-23 17:24 | Emergency (ER) | payer BC ==
[2020-02-23] MEDS ORDERED: ONDANSETRON 4 MG/2 ML VIAL IVP STA (19:01)
[2020-02-23] MEDS ORDERED: SODIUM CHLORIDE 0.9% 1,000 ML IV STA (19:01)
[2020-02-23] MEDS ORDERED: KETOROLAC 30 MG/ML 1 ML VIAL IVP STA (19:01)
[2020-02-23] MEDS ORDERED: ACETAMINOPHEN TAB 500 MG TAB PO STA (19:02)
[2020-02-23 19:39] LABS: Basophils % (A) 1 %; Eosinophils # (A) 0.2 k/uL (0-0.7); Eosinophils % (A) 4 %; HCT 40.8 % (39.0-53.0); HGB 14.2 gm/dL (13.0-17.5); Lymphocytes # (A) 1.3 k/uL (1.0-4.8); Lymphocytes % (A) 29 %; MCHC 34.9 g/dL (31.0-37.0); MCV 94.6 fL (80.0-100.0); Mean Platelet Volume 7.5; Monocytes # (A) 0.2 k/uL (0-1.0); Monocytes % (A) 6 %; Neutrophils # (A) 2.6 k/uL (1.3-7.7); Neutrophils % (A) 57 %; Platelet Count 147 k/uL (150-450); RBC 4.31 m/uL (4.30-5.90); RDW 14.7 % (11.5-15.5); WBC 4.5 k/uL (3.8-10.6)
[2020-02-23 19:46] LABS: Appearance,Urine Clear (Clear); Bilirubin,Urine Negative (Negative); Blood,Urine Negative (Negative); Color,Urine Light Yellow; Glucose,Urine (UA) Negative (Negative); Ketones,Urine Negative (Negative); Leukocyte Esterase,Urine Negative (Negative); Nitrite,Urine Negative (Negative); Protein,Urine Negative (Negative); Urobilinogen,Urine <2.0 mg/dL (<2.0)
[2020-02-23 19:57] LABS: ALT 20 U/L (4-49); AST 27 U/L (17-59); African American GFR (CKD) >90 (>60 ml/min/1.73 sqM); Albumin 4.2 g/dL (3.5-5.0); Alkaline Phosphatase 37 U/L (38-126); Amylase 54 U/L (30-110); Anion Gap 7 mmol/L; Blood Urea Nitrogen 13 mg/dL (9-20); Calcium 8.8 mg/dL (8.4-10.2); Carbon Dioxide 27 mmol/L (22-30); Chloride 101 mmol/L (98-107); Glucose 97 mg/dL (74-99); Non-African American GFR(CKD) >90 (>60 ml/min/1.73 sqM); Potassium 4.1 mmol/L (3.5-5.1); Sodium 135 mmol/L (137-145); Total Bilirubin 0.3 mg/dL (0.2-1.3); Total Protein 7.9 g/dL (6.3-8.2)
--- NOTE | 2020-02-23 20:09 | ED ---
General Adult HPI - General Chief complaint: Urogenital Stated complaint: UTI Time Seen by Provider: 02/23/20 18:49 Source: patient Mode of arrival: ambulatory Limitations: no limitations - History of Present Illness Initial comments: 39-year-old male patient presents to the emergency department today for evaluation of fever, back pain, and pain over his testicles and penis. Patient denies any swelling over this area. Patient states that he started to have mid low back pain about 2-3 weeks ago. Went to the chiropractor without relief. He was seen at his primary care physician's office on and diagnosed with a urinary tract infection and oral thrush and started on Cipro and Diflucan. Patient states he has been taking the medication, but not feeling any better. He states that a couple of days ago he started to have pain in his testicles, groin, and around his penis. States that the area is tender to touch. He denies any swelling, wounds, or drainage. States that he developed a fever today so decided to come in and get checked out. Patient states he is having weakness as well. States he feels like he tried to picker and packer a deck of cards and it felt like it weighed 50lbs. He states that walking is difficulty due to the weakness. Patient denies any recent rash, cough, shortness of breath, chest pain, abdominal pain, diarrhea, constipation, back pain, numbness, tingling, dizziness, weakness, hematuria, dysuria, urinary urgency, urinary frequency, headache, visual changes, or any other complaints. - Related Data Previous Rx's Medication Instructions Recorded HYDROcodone/APAP 5-325MG [[place] 1 tab PO Q6HR PRN 3 Days #12 tab 05/11/19 5-325] Ondansetron Odt [Zofran Odt] 4 mg PO Q8HR PRN #12 tab 05/11/19 Allergies Allergy/AdvReac Type Severity Reaction Status Date / Time No Known Allergies Allergy Verified 02/23/20 17:39 Review of Systems ROS Statement: Those systems with pertinent positive or pertinent negative responses have been documented in the HPI. ROS Other: All systems not noted in ROS Statement are negative. Past Medical History Past Medical History: GERD/Reflux Additional Past Medical History / Comment(s): rectal bleeding; nausea/vomiting. HIATAL HERNIA. ABSCESSES IN MOUTH-DR. MG EDWARD PER PT. LESION REMOVED FROM LT CREASE OF MOUTH History of Any Multi-Drug Resistant Organisms: None Reported Past Surgical History: Hernia Repair Additional Past Surgical History / Comment(s): Colonoscopy/EGD. HAVING TEETH PULLED 05/26/18 Past Anesthesia/Blood Transfusion Reactions: No Reported Reaction Past Psychological History: Anxiety, Depression Smoking Status: Current every day smoker Past Alcohol Use History: None Reported Past Drug Use History: Marijuana - Past Family History Father Family Medical History: Coronary Artery Disease (CAD), Hypertension, Myocardial Infarction ([place]) Mother History Unknown: Yes Family Medical History: No Reported History General Exam Limitations: no limitations Course Vital Signs 02/23/20 02/23/20 02/23/20 17:36 19:03 19:25 Temperature 99.5 F 101.1 F H Pulse Rate 95 Respiratory 18 Rate Blood Pressure 123/79 O2 Sat by Pulse 99 98 Oximetry 02/23/20 02/23/20 02/23/20 19:30 19:40 20:10 Temperature Pulse Rate 97 98 87 Respiratory 16 18 16 Rate Blood Pressure 115/75 118/77 98/61 O2 Sat by Pulse 99 97 95 Oximetry 02/23/20 02/23/20 02/23/20 20:20 20:40 21:00 Temperature Pulse Rate Respiratory Rate Blood Pressure 98/61 98/57 108/67 O2 Sat by Pulse 97 98 Oximetry 02/23/20 02/23/20 02/23/20 21:48 22:00 22:20 Temperature 100.4 F H Pulse Rate 67 Respiratory 16 Rate Blood Pressure 104/67 104/66 98/63 O2 Sat by Pulse 99 95 95 Oximetry 02/23/20 22:40 Temperature Pulse Rate Respiratory Rate Blood Pressure 95/68 O2 Sat by Pulse 96 Oximetry Medical Decision Making - Medical Decision Making 39-year-old male patient presents to the emergency department today for evaluation of fever, headache, back pain, and pelvic pain. Physical examination did reveal normal-appearing testicles and penis. He is neurologically intact with no focal deficits. No concerning symptoms or cauda equina. Did have some mild lumbar tenderness. Labs reviewed and did reveal normal white blood cell count, ESR of 70, CRP of 10. Urinalysis is negative for signs of infection or blood. Scrotal ultrasound was obtained was negative. Lumbar CT was obtained and showed some bulging disks but no evidence for discitis. Given his fever, new back pain, and pelvic pain there is some concern for epidural abscess we will transfer to [facility] for stat MRI. We did start lalao and Laci I did discuss findings, results, plan with the patient and his significant other, they are agreeable. - Lab Data Result diagrams: 02/23/20 19:19 02/23/20 19:19 Lab Results 02/23/20 02/23/20 02/23/20 Range/Units 19:19 19:19 19:19 WBC 4.5 (3.8-10.6) k/uL RBC 4.31 (4.30-5.90) m/uL Hgb 14.2 (13.0-17.5) gm/dL Hct 40.8 (39.0-53.0) % MCV 94.6 (80.0-100.0) fL MCH 33.0 (25.0-35.0) pg MCHC 34.9 (31.0-37.0) g/dL RDW 14.7 (11.5-15.5) % Plt Count 147 L (150-450) k/uL Neutrophils % 57 % Lymphocytes % 29 % Monocytes % 6 % Eosinophils % 4 % Basophils % 1 % Neutrophils # 2.6 (1.3-7.7) k/uL Lymphocytes # 1.3 (1.0-4.8) k/uL Monocytes # 0.2 (0-1.0) k/uL Eosinophils # 0.2 (0-0.7) k/uL Basophils # 0.0 (0-0.2) k/uL ESR (0-15) mm/hr Sodium 135 L (137-145) mmol/L Potassium 4.1 (3.5-5.1) mmol/L Chloride 101 (98-107) mmol/L Carbon Dioxide 27 (22-30) mmol/L Anion Gap 7 mmol/L BUN 13 (9-20) mg/dL Creatinine 0.84 (0.66-1.25) mg/dL Est GFR (CKD-EPI)AfAm >90 (>60 ml/min/1.73 sqM) Est GFR (CKD-EPI)NonAf >90 (>60 ml/min/1.73 sqM) Glucose 97 (74-99) mg/dL Plasma Lactic Acid Melvin (0.7-2.0) mmol/L Calcium 8.8 (8.4-10.2) mg/dL Total Bilirubin 0.3 (0.2-1.3) mg/dL AST 27 (17-59) U/L ALT 20 (4-49) U/L Alkaline Phosphatase 37 L (38-126) U/L C-Reactive Protein (<10.0) mg/L Total Protein 7.9 (6.3-8.2) g/dL Albumin 4.2 (3.5-5.0) g/dL Amylase 54 (30-110) U/L Lipase 66 (23-300) U/L Urine Color Light Yellow Urine Appearance Clear (Clear) Urine pH 6.0 (5.0-8.0) Ur Specific [place] 1.010 (1.001-1.035) Urine Protein Negative (Negative) Urine Glucose (UA) Negative (Negative) Urine Ketones Negative (Negative) Urine Blood Negative (Negative) Urine Nitrite Negative (Negative) Urine Bilirubin Negative (Negative) Urine Urobilinogen <2.0 (<2.0) mg/dL Ur Leukocyte Esterase Negative (Negative) 02/23/20 02/23/20 02/23/20 Range/Units 19:19 20:26 20:26 WBC (3.8-10.6) k/uL RBC (4.30-5.90) m/uL Hgb (13.0-17.5) gm/dL Hct (39.0-53.0) % MCV (80.0-100.0) fL MCH (25.0-35.0) pg MCHC (31.0-37.0) g/dL RDW (11.5-15.5) % Plt Count (150-450) k/uL Neutrophils % % Lymphocytes % % Monocytes % % Eosinophils % % Basophils % % Neutrophils # (1.3-7.7) k/uL Lymphocytes # (1.0-4.8) k/uL Monocytes # (0-1.0) k/uL Eosinophils # (0-0.7) k/uL Basophils # (0-0.2) k/uL ESR 70 H (0-15) mm/hr Sodium (137-145) mmol/L Potassium (3.5-5.1) mmol/L Chloride (98-107) mmol/L Carbon Dioxide (22-30) mmol/L Anion Gap mmol/L BUN (9-20) mg/dL Creatinine (0.66-1.25) mg/dL Est GFR (CKD-EPI)AfAm (>60 ml/min/1.73 sqM) Est GFR (CKD-EPI)NonAf (>60 ml/min/1.73 sqM) Glucose (74-99) mg/dL Plasma Lactic Acid Melvin 0.8 (0.7-2.0) mmol/L Calcium (8.4-10.2) mg/dL Total Bilirubin (0.2-1.3) mg/dL AST (17-59) U/L ALT (4-49) U/L Alkaline Phosphatase (38-126) U/L C-Reactive Protein 10.0 H (<10.0) mg/L Total Protein (6.3-8.2) g/dL Albumin (3.5-5.0) g/dL Amylase (30-110) U/L Lipase (23-300) U/L Urine Color Urine Appearance (Clear) Urine pH (5.0-8.0) Ur Specific [place] (1.001-1.035) Urine Protein (Negative) Urine Glucose (UA) (Negative) Urine Ketones (Negative) Urine Blood (Negative) Urine Nitrite (Negative) Urine Bilirubin (Negative) Urine Urobilinogen (<2.0) mg/dL Ur Leukocyte Esterase (Negative) - Radiology Data Radiology results: report reviewed, image reviewed Ultrasound of scrotum was obtained. Report was reviewed in its entirety. Impression by Dr. Chester shows no evidence of testicular torsion, mass, orchitis, epididymitis. Left-sided varicocele. CT lumbar side of the day. Report was reviewed in its entirety. Impression by Dr. Lin shows no vertebral compression collapse or malalignment. No large focal disc herniation or significant spinal canal stenosis. Mild bulging disc in the mid and lower lumbar spine causing variable mild neural foraminal narrowing. No high-grade foraminal compromise seen. Of note there is a mild degenerative assimilation joint and the right at L5 with the sacral alar. This in itself can be a source of pain and some patients. Eventually, he can also result in accelerated degenerative disc disease at the level above at L4 to 5. Mild left-sided pelvic caliectasis. Correlate for any potential distal ureteral obstruction or calculus. Disposition Clinical Impression: Back pain, Fever, Headache Disposition: OTHER INSTITUTION NOT DEFINED Condition: Serious Referrals: Hebert Caldwell DO [Primary Care Provider] - 1-2 days - Out of Hospital Transfer - Req. Specs Out of Hospital Transfer - Requested Specifics: Other Emergency Center ([facility])
[2020-02-23] MEDS ORDERED: SODIUM CHLORIDE 0.9% 1,000 ML IV ONE (20:10)
[2020-02-23 20:18] VITALS: RESP 16
[2020-02-23] MEDS ORDERED: VANCOMYCIN IV PER PHARMACY 1 EACH MISC MISCELLANE PRN (20:26)
[2020-02-23] MEDS ORDERED: PIPERACILLIN-TAZOBACTAM 3.375 GM in SODIUM CHLORIDE 0.9% 100 ML IVPB STA (20:26)
[2020-02-23] MEDS ORDERED: VANCOMYCIN 1,250 MG in SODIUM CHLORIDE 0.9% 250 ML IVPB STA (20:35)
[2020-02-23] MEDS ORDERED: HYDROmorphone 0.5 MG/0.5 ML SYRINGE IVP STA (21:45)
[2020-02-23 21:49] VITALS: PULSE 67; TEMP 100.4
--- NOTE | 2020-02-23 21:57 | CT ---
EXAMINATION TYPE: CT lumbar spine w con DATE OF EXAM: 02/23/2020 COMPARISON: None HISTORY: 39-year-old male Back pain with left leg weakness and left testicular pain. TECHNIQUE: Contiguous axial scanning of the lumbar spine performed with IV Contrast, patient injected with 100 mL of Isovue 300. Coronal/sagittal reconstructions performed. CT DLP: 679.7 mGycm Automated exposure control for dose reduction was used. FINDINGS: Vertebral body heights are preserved and alignment is maintained. Mild degenerative disc space narrowing L5-S1. Minimal bulging discs mid and lower lumbar spine. No large focal disc herniation or significant spinal canal stenosis seen. On the left, there is mild neuroforaminal narrowing at L2-L3 and L3-L4. On the right, there is mild neural foraminal narrowing at L4-L5. In addition, there is a right L5 hemisacralization with the lateral sequela. There is a degenerative pseudoarticulation noted. Some surgical material at the GE junction. Of note, there is mild left-sided pelvicaliectasis. IMPRESSION: 1 NO VERTEBRAL COMPRESSION COLLAPSE OR MALALIGNMENT. NO LARGE FOCAL DISC HERNIATION OR SIGNIFICANT SP INAL CANAL STENOSIS. 2. MILD BULGING DISCS IN THE MID AND LOWER LUMBAR SPINE CAUSING VARIABLE MILD NEUROFORAMINAL NARROWIN G. NO HIGH-GRADE FORAMINAL COMPROMISE SEEN. 3. OF NOTE, THERE IS A MILDLY DEGENERATIVE ASSIMILATION JOINT ON THE RIGHT AT L5 WITH THE SACRAL ALAR . THIS IN ITSELF CAN BE A SOURCE OF PAIN AND SOME PATIENTS. EVENTUALLY, IT CAN ALSO RESULT IN ACCELER ATED DEGENERATIVE DISC DISEASE AT THE LEVEL ABOVE AT L4-L5. 4. MILD LEFT-SIDED PELVICALIECTASIS. CORRELATE FOR ANY POTENTIAL DISTAL URETERAL OBSTRUCTION/CALCULUS .
--- NOTE | 2020-02-23 22:04 | US ---
EXAMINATION TYPE: US scrotum with doppler. Grayscale and color Doppler Duplex imaging performed of t abdulaziz scrotum. DATE OF EXAM: 02/23/2020 COMPARISON: NONE CLINICAL HISTORY: Scrotal pain. EXAM MEASUREMENTS: TESTICLES: Right Testicle: 4.4 x 2.2 x 2.8 cm Left Testicle: 4.2 x 2.0 x 3.0 cm EPIDIDYMIS HEAD: Right Epididymis: 1.0 cm Left Epididymis: 0.7 cm Doppler performed to assess for testicular vascularity; normal bilateral color flow and Doppler wavef orms are seen. There is no evidence of testicular torsion. Testicles are symmetric and homogenous i n appearance with no focal abnormality. Presence of hydroceles: No. Presence of varicoceles: Yes, left pampiniform plexus veins measure up to 4 mm and color flow increa ses with Valsalva. IMPRESSION: 1. No evidence of testicular torsion, mass, orchitis, or epididymitis. 2. Left-sided varicocele.
[2020-02-23 22:58] VITALS: BP 95/68
[2020-02-26 08:52] LABS: C. trachomatis,PCR Negative (Neg,Equiv); Chlamydia trachomatis Source Urine; N. gonorrhoeae,PCR Negative (Neg,Equiv); Neisseria Source Urine
== END 2020-02-23 23:37 | disposition other institution (70) ==
LOC: EC 17:24
DX: M51.26 Other intervertebral disc displacement, lumbar region (principal); R50.9 Fever, unspecified; R51 Headache; R10.2 Pelvic and perineal pain; F17.200 Nicotine dependence, unspecified, uncomplicated
CPT/HCPCS: 36415; 80053; 85652; 82150; 83605; 83690; 85025; 86140; 81003; 87040; 87491; 87591; 84145; 93975; 76870; 72132; 99285; 96365; 96375 ×3; 96361; J2543; J3370; J2405; J1885; J1170; Q9967

== ENCOUNTER 2020-06-15 07:14 | Emergency (ER) | payer BC, OTHER ==
[2020-06-15] MEDS ORDERED: ONDANSETRON 4 MG/2 ML VIAL IVP STA (07:41)
[2020-06-15] MEDS ORDERED: SODIUM CHLORIDE 0.9% 1,000 ML IV STA (07:41)
--- NOTE | 2020-06-15 07:48 | ED ---
General Adult HPI - General Chief complaint: Nausea/Vomiting/Diarrhea Stated complaint: HIV Testing Time Seen by Provider: 06/15/20 07:32 Source: patient, RN notes reviewed Mode of arrival: ambulatory Limitations: no limitations - History of Present Illness Initial comments: This is a 40-year-old male presents emergency Department chief complaint of gen eralized weakness, nausea. Patient states that he's been feeling sick for last 1 week has reported temp was 99.2. He states had a slight cough though he states is a daily smoker no productive cough denies any significant headache or dizziness. Patient states she's had nausea without vomiting or something diarrhea. He states he still able to eat and drink well. Patient states that he is on current treatment for HIV. He states that he found out in February. Patient states his last CD4 count was in the 200s. Patient denies any neck pain or neck stiffness. Denies any lower extremity swelling symptoms. He does admit that he has some bumps showing up on the right buttocks region somewhat when he had shingles. - Related Data Previous Rx's Medication Instructions Recorded HYDROcodone/APAP 5-325MG [[place] 1 tab PO Q6HR PRN 3 Days #12 tab 05/11/19 5-325] Ondansetron Odt [Zofran Odt] 4 mg PO Q8HR PRN #12 tab 05/11/19 Ondansetron Odt [Zofran Odt] 4 mg PO Q8HR PRN #10 tab 06/15/20 valACYclovir HCL [Valtrex] 1,000 mg PO Q8HR #30 tab 06/15/20 Allergies Allergy/AdvReac Type Severity Reaction Status Date / Time No Known Allergies Allergy Verified 06/15/20 07:31 Review of Systems ROS Statement: Those systems with pertinent positive or pertinent negative responses have been documented in the HPI. ROS Other: All systems not noted in ROS Statement are negative. Past Medical History Past Medical History: GERD/Reflux Additional Past Medical History / Comment(s): rectal bleeding; nausea/vomiting, HIV. HIATAL HERNIA. ABSCESSES IN MOUTH-DR. MG EDWARD PER PT. LESION REMOVED FROM LT CREASE OF MOUTH History of Any Multi-Drug Resistant Organisms: None Reported Past Surgical History: Hernia Repair Additional Past Surgical History / Comment(s): Colonoscopy/EGD. HAVING TEETH PULLED 05/26/18 Past Anesthesia/Blood Transfusion Reactions: No Reported Reaction Past Psychological History: Anxiety, Depression Smoking Status: Current every day smoker Past Alcohol Use History: None Reported Past Drug Use History: Marijuana - Past Family History Father Family Medical History: Coronary Artery Disease (CAD), Hypertension, Myocardial Infarction ([place]) Mother History Unknown: Yes Family Medical History: No Reported History General Exam Limitations: no limitations General appearance: alert, in no apparent distress Head exam: Present: atraumatic, normocephalic, normal inspection Eye exam: Present: normal appearance, PERRL, EOMI. Absent: scleral icterus, conjunctival injection, periorbital swelling ENT exam: Present: normal exam, normal oropharynx, mucous membranes moist Neck exam: Present: normal inspection, full ROM. Absent: tenderness, meningismus, lymphadenopathy Respiratory exam: Present: normal lung sounds bilaterally. Absent: respiratory distress, wheezes, rales, rhonchi, stridor Cardiovascular Exam: Present: regular rate, normal rhythm, normal heart sounds. Absent: systolic murmur, diastolic murmur, rubs, gallop, clicks GI/Abdominal exam: Present: soft, normal bowel sounds. Absent: distended, tenderness, guarding, rebound, rigid Neurological exam: Present: alert, oriented X3, CN II-XII intact Skin exam: Present: warm, dry, intact, normal color, rash (Small papular rash on the right buttocks) Course Vital Signs 06/15/20 06/15/20 07:28 08:57 Temperature 99.0 F 97.8 F Pulse Rate 65 55 L Respiratory 18 16 Rate Blood Pressure 147/84 105/68 O2 Sat by Pulse 100 100 Oximetry Medical Decision Making - Medical Decision Making 40-year-old male presented for generalized not feeling well. Patient is known HIV for this patient. Patient's labs unremarkable. Patient has recurrent shingles will be treated with Valtrex. Facial follow-up with infectious disease and return for any worsening change in symptoms. - Lab Data Result diagrams: 06/15/20 08:12 06/15/20 08:12 Lab Results 06/15/20 06/15/20 06/15/20 Range/Units 08:12 08:12 08:12 WBC 8.9 (3.8-10.6) k/uL RBC 4.45 (4.30-5.90) m/uL Hgb 14.6 (13.0-17.5) gm/dL Hct 44.4 (39.0-53.0) % MCV 99.7 (80.0-100.0) fL MCH 32.9 (25.0-35.0) pg MCHC 33.0 (31.0-37.0) g/dL RDW 14.5 (11.5-15.5) % Plt Count 217 (150-450) k/uL Neutrophils % 66 % Lymphocytes % 23 % Monocytes % 4 % Eosinophils % 4 % Basophils % 1 % Neutrophils # 5.9 (1.3-7.7) k/uL Lymphocytes # 2.0 (1.0-4.8) k/uL Monocytes # 0.4 (0-1.0) k/uL Eosinophils # 0.4 (0-0.7) k/uL Basophils # 0.1 (0-0.2) k/uL Sodium 138 (137-145) mmol/L Potassium 4.4 (3.5-5.1) mmol/L Chloride 105 (98-107) mmol/L Carbon Dioxide 28 (22-30) mmol/L Anion Gap 5 mmol/L BUN 14 (9-20) mg/dL Creatinine 0.83 (0.66-1.25) mg/dL Est GFR (CKD-EPI)AfAm >90 (>60 ml/min/1.73 sqM) Est GFR (CKD-EPI)NonAf >90 (>60 ml/min/1.73 sqM) Glucose 105 H (74-99) mg/dL Plasma Lactic Acid Melvin 1.1 (0.7-2.0) mmol/L Calcium 9.2 (8.4-10.2) mg/dL Total Bilirubin 0.5 (0.2-1.3) mg/dL AST 32 (17-59) U/L ALT 25 (4-49) U/L Alkaline Phosphatase 38 (38-126) U/L Total Protein 8.1 (6.3-8.2) g/dL Albumin 4.4 (3.5-5.0) g/dL Amylase 57 (30-110) U/L Lipase 55 (23-300) U/L Urine Color Urine Appearance (Clear) Urine pH (5.0-8.0) Ur Specific [place] (1.001-1.035) Urine Protein (Negative) Urine Glucose (UA) (Negative) Urine Ketones (Negative) Urine Blood (Negative) Urine Nitrite (Negative) Urine Bilirubin (Negative) Urine Urobilinogen (<2.0) mg/dL Ur Leukocyte Esterase (Negative) Coronavirus (PCR) (Not Detectd) 06/15/20 06/15/20 Range/Units 08:12 09:10 WBC (3.8-10.6) k/uL RBC (4.30-5.90) m/uL Hgb (13.0-17.5) gm/dL Hct (39.0-53.0) % MCV (80.0-100.0) fL MCH (25.0-35.0) pg MCHC (31.0-37.0) g/dL RDW (11.5-15.5) % Plt Count (150-450) k/uL Neutrophils % % Lymphocytes % % Monocytes % % Eosinophils % % Basophils % % Neutrophils # (1.3-7.7) k/uL Lymphocytes # (1.0-4.8) k/uL Monocytes # (0-1.0) k/uL Eosinophils # (0-0.7) k/uL Basophils # (0-0.2) k/uL Sodium (137-145) mmol/L Potassium (3.5-5.1) mmol/L Chloride (98-107) mmol/L Carbon Dioxide (22-30) mmol/L Anion Gap mmol/L BUN (9-20) mg/dL Creatinine (0.66-1.25) mg/dL Est GFR (CKD-EPI)AfAm (>60 ml/min/1.73 sqM) Est GFR (CKD-EPI)NonAf (>60 ml/min/1.73 sqM) Glucose (74-99) mg/dL Plasma Lactic Acid Melvin (0.7-2.0) mmol/L Calcium (8.4-10.2) mg/dL Total Bilirubin (0.2-1.3) mg/dL AST (17-59) U/L ALT (4-49) U/L Alkaline Phosphatase (38-126) U/L Total Protein (6.3-8.2) g/dL Albumin (3.5-5.0) g/dL Amylase (30-110) U/L Lipase (23-300) U/L Urine Color Light Yellow Urine Appearance Clear (Clear) Urine pH 6.0 (5.0-8.0) Ur Specific [place] 1.013 (1.001-1.035) Urine Protein Negative (Negative) Urine Glucose (UA) Negative (Negative) Urine Ketones Negative (Negative) Urine Blood Negative (Negative) Urine Nitrite Negative (Negative) Urine Bilirubin Negative (Negative) Urine Urobilinogen <2.0 (<2.0) mg/dL Ur Leukocyte Esterase Negative (Negative) Coronavirus (PCR) Not Detected (Not Detectd) Disposition Clinical Impression: Shingles, Nausea Disposition: HOME SELF-CARE Condition: Stable Instructions (If sedation given, give patient instructions): Jennifer (ED) Additional Instructions: Please return to the Emergency Department if symptoms worsen or any other concerns. Prescriptions: valACYclovir HCL [Valtrex] 1,000 mg PO Q8HR #30 tab Ondansetron Odt [Zofran Odt] 4 mg PO Q8HR PRN #10 tab PRN Reason: Nausea Is patient prescribed a controlled substance at d/c from ED?: No Referrals: Hebert Caldwell DO [Primary Care Provider] - 1-2 days Time of Disposition: 09:37
[2020-06-15 08:29] LABS: Basophils # (A) 0.1 k/uL (0-0.2); Basophils % (A) 1 %; Eosinophils # (A) 0.4 k/uL (0-0.7); Eosinophils % (A) 4 %; HCT 44.4 % (39.0-53.0); HGB 14.6 gm/dL (13.0-17.5); Lymphocytes % (A) 23 %; MCH 32.9 pg (25.0-35.0); MCV 99.7 fL (80.0-100.0); Mean Platelet Volume 6.9; Monocytes # (A) 0.4 k/uL (0-1.0); Monocytes % (A) 4 %; Neutrophils # (A) 5.9 k/uL (1.3-7.7); Neutrophils % (A) 66 %; Platelet Count 217 k/uL (150-450); RBC 4.45 m/uL (4.30-5.90); RDW 14.5 % (11.5-15.5); WBC 8.9 k/uL (3.8-10.6)
[2020-06-15 08:39] LABS: ALT 25 U/L (4-49); AST 32 U/L (17-59); African American GFR (CKD) >90 (>60 ml/min/1.73 sqM); Albumin 4.4 g/dL (3.5-5.0); Alkaline Phosphatase 38 U/L (38-126); Amylase 57 U/L (30-110); Anion Gap 5 mmol/L; Blood Urea Nitrogen 14 mg/dL (9-20); Calcium 9.2 mg/dL (8.4-10.2); Carbon Dioxide 28 mmol/L (22-30); Chloride 105 mmol/L (98-107); Glucose 105 mg/dL (74-99); Lipase 55 U/L (23-300); Non-African American GFR(CKD) >90 (>60 ml/min/1.73 sqM); Potassium 4.4 mmol/L (3.5-5.1); Sodium 138 mmol/L (137-145); Total Bilirubin 0.5 mg/dL (0.2-1.3); Total Protein 8.1 g/dL (6.3-8.2)
--- NOTE | 2020-06-15 09:15 | XR ---
EXAMINATION TYPE: XR chest 2V DATE OF EXAM: 06/15/2020 COMPARISON: 08/07/2011 HISTORY: Chest pain TECHNIQUE: Frontal and lateral views of the chest are obtained. FINDINGS: There is no focal air space opacity. No evidence for pneumothorax. No pleural effusion. The cardiac silhouette size is within normal limits. The osseous structures are grossly intact. IMPRESSION: 1. No acute cardiopulmonary process.
[2020-06-15 09:24] LABS: Appearance,Urine Clear (Clear); Bilirubin,Urine Negative (Negative); Blood,Urine Negative (Negative); Color,Urine Light Yellow; Glucose,Urine (UA) Negative (Negative); Ketones,Urine Negative (Negative); Leukocyte Esterase,Urine Negative (Negative); Nitrite,Urine Negative (Negative); Protein,Urine Negative (Negative); Specific Gravity,Urine 1.013 (1.001-1.035); Urobilinogen,Urine <2.0 mg/dL (<2.0)
[2020-06-15 09:54] VITALS: BP 110/67; PULSE 65; RESP 18; TEMP 98
== END 2020-06-15 09:53 | disposition home or self-care (01) ==
LOC: EC 07:14
DX: B02.9 Zoster without complications (principal); R11.0 Nausea; F17.200 Nicotine dependence, unspecified, uncomplicated; Z21 Asymptomatic human immunodeficiency virus [HIV] infection status; Z20.828 Contact with and (suspected) exposure to other viral communicable diseases
CPT/HCPCS: 36415; 80053; 82150; 83605; 83690; 85025; 81003; 87635; 71046; 99285; 96374; 96361; J2405

== ENCOUNTER 2020-08-30 23:47 | Observation (INO) | payer BC, OTHER ==
[2020-08-31] MEDS ORDERED: SODIUM CHLORIDE 0.9% 1,000 ML IV STA (00:29)
[2020-08-31] MEDS ORDERED: MORPHINE SULFATE 4 MG/ML SYRINGE IV STA (00:29)
[2020-08-31] MEDS ORDERED: ONDANSETRON 4 MG/2 ML VIAL IVP STA (00:29)
[2020-08-31 00:47] LABS: Basophils # (A) 0.1 k/uL (0-0.2); Basophils % (A) 1 %; Eosinophils # (A) 0.3 k/uL (0-0.7); Eosinophils % (A) 2 %; HCT 45.3 % (39.0-53.0); HGB 15.5 gm/dL (13.0-17.5); Lymphocytes # (A) 1.7 k/uL (1.0-4.8); Lymphocytes % (A) 15 %; MCH 33.5 pg (25.0-35.0); MCHC 34.3 g/dL (31.0-37.0); MCV 97.6 fL (80.0-100.0); Mean Platelet Volume 7.5; Monocytes # (A) 0.7 k/uL (0-1.0); Monocytes % (A) 6 %; Neutrophils # (A) 8.8 k/uL (1.3-7.7); Neutrophils % (A) 75 %; Platelet Count 228 k/uL (150-450); RBC 4.64 m/uL (4.30-5.90); RDW 14.1 % (11.5-15.5); WBC 11.7 k/uL (3.8-10.6)
[2020-08-31 00:58] LABS: Appearance,Urine Clear (Clear); Bilirubin,Urine Negative (Negative); Blood,Urine Negative (Negative); Color,Urine Yellow; Glucose,Urine (UA) Negative (Negative); Hyaline Casts,Urine 11 /lpf (0-2); Ketones,Urine Trace (Negative); Leukocyte Esterase,Urine Negative (Negative); Mucus,Urine Rare /hpf; Nitrite,Urine Negative (Negative); Protein,Urine 2+ (Negative); RBC,Urine 1 /hpf (0-5); Specific Gravity,Urine 1.036 (1.001-1.035); Urobilinogen,Urine <2.0 mg/dL (<2.0); WBC,Urine 2 /hpf (0-5)
[2020-08-31 01:01] LABS: ALT 31 U/L (4-49); AST 35 U/L (17-59); African American GFR (CKD) >90 (>60 ml/min/1.73 sqM); Albumin 4.6 g/dL (3.5-5.0); Alkaline Phosphatase 39 U/L (38-126); Amylase 70 U/L (30-110); Anion Gap 9 mmol/L; Blood Urea Nitrogen 15 mg/dL (9-20); Calcium 9.8 mg/dL (8.4-10.2); Carbon Dioxide 24 mmol/L (22-30); Chloride 107 mmol/L (98-107); Glucose 82 mg/dL (74-99); Lipase 136 U/L (23-300); Non-African American GFR(CKD) >90 (>60 ml/min/1.73 sqM); Potassium 4.2 mmol/L (3.5-5.1); Sodium 140 mmol/L (137-145); Total Bilirubin 0.3 mg/dL (0.2-1.3); Total Protein 8.3 g/dL (6.3-8.2)
--- NOTE | 2020-08-31 01:26 | CT ---
EXAM: CT Abdomen and Pelvis With Intravenous Contrast CLINICAL HISTORY: medial abdominal pain for past few hours radiating to lower back, pt is a little nausea but cant throw up, had unspecified abdominal surgery 3 years ago, previous hiatal hernia repair" TECHNIQUE: Axial computed tomography images of the abdomen and pelvis with intravenous contrast. CTDI is 17.07 mGy and DLP is 834.6 mGy-cm. This CT exam was performed using one or more of the following dose reduction techniques: automated exposure control, adjustment of the mA and/or kV according to patient size, and/or use of iterative reconstruction technique. Coronal and sagittal reformatted images were created and reviewed. COMPARISON: 05-11-19 FINDINGS: Lung bases: Unremarkable. No mass. No consolidation. ABDOMEN: Liver: Unremarkable. No mass. Gallbladder and bile ducts: Unremarkable. No calcified stones. No ductal dilation. Pancreas: Unremarkable. No mass. No ductal dilation. Spleen: Unremarkable. No splenomegaly. Adrenals: Unremarkable. No mass. Kidneys and ureters: Subcentimeter hypodensity in lower pole of left kidney, too small to characterize, likely cysts, unchanged. No hydronephrosis. Stomach and bowel: Short segments of jejunum have circumferential wall thickening, measuring up to 9 mm. The rectum has circumferential wall thickening, measuring up to 7 mm, surrounded by subtle mesenteric stranding, may suggest proctitis. Stomach is over distended. PELVIS: Appendix: No findings to suggest acute appendicitis. Bladder: Unremarkable. No mass. Reproductive: Unremarkable as visualized. ABDOMEN and PELVIS: Intraperitoneal space: Unremarkable. No free air. No significant fluid collection. Bones/joints: No acute fracture. No dislocation. Soft tissues: Unremarkable. Vasculature: Unremarkable. No abdominal aortic aneurysm. Lymph nodes: Unremarkable. No enlarged lymph nodes. IMPRESSION: 1. Short segments of jejunum have circumferential wall thickening, measuring up to 9 mm, can be due to underdistention. Jejunitis cannot be excluded. 2. The rectum has circumferential wall thickening, measuring up to 7 mm, surrounded by subtle mesenteric stranding, may suggest proctitis.
[2020-08-31] MEDS ORDERED: KETOROLAC 15 MG/ML 1 ML VIAL IVP STA (01:31)
[2020-08-31] MEDS ORDERED: DICYCLOMINE 10 MG/ML 2 ML AMP IM STA (01:31)
[2020-08-31] MEDS ORDERED: ONDANSETRON 4 MG/2 ML VIAL IVP PRN ×2 (02:15→15:46)
[2020-08-31] MEDS ORDERED: NALOXONE 0.4 MG/ML 1 ML VIAL IV PRN (02:15)
[2020-08-31] MEDS ORDERED: metroNIDAZOLE-NS PMX 500 MG in SALINE 1 100ML.BAG IVPB STA ×2 (02:20→04:09)
[2020-08-31] MEDS ORDERED: PIPERACILLIN-TAZOBACTAM 3.375 GM in SODIUM CHLORIDE 0.9% 100 ML IVPB STA (02:20)
--- NOTE | 2020-08-31 02:25 | ED ---
Abdominal Pain HPI - General Chief Complaint: Abdominal Pain Stated Complaint: NVD Time Seen by Provider: 08/30/20 23:56 Source: patient, EMS Mode of arrival: EMS Limitations: no limitations - History of Present Illness Initial Comments: 40-year-old male patient presents to the emergency department today for evaluation of abdominal pain and diarrhea. Patient states symptoms started yesterday and have been worsening. Patient denies any hematochezia or melena with this. States he has been nauseated and has felt close to vomiting but he has had Natalie fundoplication in the past and does not usually vomit. Denies any fever or chills. Denies any recent travel or sick contacts. Denies ingestion of questionable foods. Patient is HIV positive maintained on antiviral regimen, states his last viral load was undetectable and CD4 counts were around 430. Patient denies any recent rash, cough, shortness of breath, chest pain, back pain, numbness, tingling, dizziness, weakness, hematuria, dysuria, urinary urgency, urinary frequency, headache, visual changes, or any other complaints. - Related Data Previous Rx's Medication Instructions Recorded HYDROcodone/APAP 5-325MG [[place] 1 tab PO Q6HR PRN 3 Days #12 tab 05/11/19 5-325] Ondansetron Odt [Zofran Odt] 4 mg PO Q8HR PRN #12 tab 05/11/19 Ondansetron Odt [Zofran Odt] 4 mg PO Q8HR PRN #10 tab 06/15/20 valACYclovir HCL [Valtrex] 1,000 mg PO Q8HR #30 tab 06/15/20 Allergies Allergy/AdvReac Type Severity Reaction Status Date / Time No Known Allergies Allergy Verified 06/15/20 07:31 Review of Systems ROS Statement: Those systems with pertinent positive or pertinent negative responses have been documented in the HPI. ROS Other: All systems not noted in ROS Statement are negative. Past Medical History Past Medical History: GERD/Reflux Additional Past Medical History / Comment(s): rectal bleeding; nausea/vomiting, HIV. HIATAL HERNIA. ABSCESSES IN MOUTH-DR. MG EDWARD PER PT. LESION REMOVED FROM LT CREASE OF MOUTH History of Any Multi-Drug Resistant Organisms: None Reported Past Surgical History: Hernia Repair Additional Past Surgical History / Comment(s): Colonoscopy/EGD. HAVING TEETH PULLED 05/26/18 Past Anesthesia/Blood Transfusion Reactions: No Reported Reaction Past Psychological History: Anxiety, Depression Smoking Status: Current every day smoker Past Alcohol Use History: None Reported Past Drug Use History: Marijuana - Past Family History Father Family Medical History: Coronary Artery Disease (CAD), Hypertension, Myocardial Infarction ([place]) Mother History Unknown: Yes Family Medical History: No Reported History General Exam Limitations: no limitations General appearance: alert, in no apparent distress, other (Physical well- developed, well-nourished adult male patient in no acute distress. Vital signs upon presentation are temperature 98.0F, pulse 80, respirations 18, blood pressure 128/75, pulse ox 95% on room air.) Eye exam: Present: normal appearance, PERRL, EOMI. Absent: scleral icterus, conjunctival injection, periorbital swelling ENT exam: Present: normal exam, normal oropharynx, mucous membranes moist Respiratory exam: Present: normal lung sounds bilaterally. Absent: respiratory distress, wheezes, rales, rhonchi, stridor Cardiovascular Exam: Present: regular rate, normal rhythm, normal heart sounds. Absent: systolic murmur, diastolic murmur, rubs, gallop, clicks GI/Abdominal exam: Present: soft, tenderness (Periumbilical), normal bowel sounds. Absent: distended, guarding, rebound, rigid Neurological exam: Present: alert, oriented X3, CN II-XII intact Psychiatric exam: Present: normal affect, normal mood Skin exam: Present: warm, dry, intact, normal color. Absent: rash Course Vital Signs 08/30/20 23:48 Temperature 98.0 F Pulse Rate 80 Respiratory 18 Rate Blood Pressure 128/75 O2 Sat by Pulse 95 Oximetry Medical Decision Making - Medical Decision Making 40-year-old male patient presents to the emergency department today for evaluation of abdominal pain, nausea, and diarrhea. Physical examination did reveal. Umbilical abdominal tenderness. Labs reviewed and did reveal elevated lactic acid 3.0. White count was mildly elevated at 11.6. CT abdomen and pelvis was obtained and did show possible jejunitis and possible proctitis. Did discuss the findings with the patient, did question regarding participation anal sex, he denies this. Patient was started on Zosyn and Flagyl. He'll be admitted to the hospital we'll and consult infectious disease given his history of HIV. Patient is agreeable with this plan. - Lab Data Result diagrams: 08/31/20 00:32 08/31/20 00:32 Lab Results 08/31/20 08/31/20 08/31/20 Range/Units 00:32 00:32 00:32 WBC 11.7 H (3.8-10.6) k/uL RBC 4.64 (4.30-5.90) m/uL Hgb 15.5 (13.0-17.5) gm/dL Hct 45.3 (39.0-53.0) % MCV 97.6 (80.0-100.0) fL MCH 33.5 (25.0-35.0) pg MCHC 34.3 (31.0-37.0) g/dL RDW 14.1 (11.5-15.5) % Plt Count 228 (150-450) k/uL MPV 7.5 Neutrophils % 75 % Lymphocytes % 15 % Monocytes % 6 % Eosinophils % 2 % Basophils % 1 % Neutrophils # 8.8 H (1.3-7.7) k/uL Lymphocytes # 1.7 (1.0-4.8) k/uL Monocytes # 0.7 (0-1.0) k/uL Eosinophils # 0.3 (0-0.7) k/uL Basophils # 0.1 (0-0.2) k/uL Sodium 140 (137-145) mmol/L Potassium 4.2 (3.5-5.1) mmol/L Chloride 107 (98-107) mmol/L Carbon Dioxide 24 (22-30) mmol/L Anion Gap 9 mmol/L BUN 15 (9-20) mg/dL Creatinine 0.90 (0.66-1.25) mg/dL Est GFR (CKD-EPI)AfAm >90 (>60 ml/min/1.73 sqM) Est GFR (CKD-EPI)NonAf >90 (>60 ml/min/1.73 sqM) Glucose 82 (74-99) mg/dL Plasma Lactic Acid Melvin 3.0 H* (0.7-2.0) mmol/L Calcium 9.8 (8.4-10.2) mg/dL Total Bilirubin 0.3 (0.2-1.3) mg/dL AST 35 (17-59) U/L ALT 31 (4-49) U/L Alkaline Phosphatase 39 (38-126) U/L Troponin I (0.000-0.034) ng/mL Total Protein 8.3 H (6.3-8.2) g/dL Albumin 4.6 (3.5-5.0) g/dL Amylase 70 (30-110) U/L Lipase 136 (23-300) U/L Urine Color Urine Appearance (Clear) Urine pH (5.0-8.0) Ur Specific [place] (1.001-1.035) Urine Protein (Negative) Urine Glucose (UA) (Negative) Urine Ketones (Negative) Urine Blood (Negative) Urine Nitrite (Negative) Urine Bilirubin (Negative) Urine Urobilinogen (<2.0) mg/dL Ur Leukocyte Esterase (Negative) Urine RBC (0-5) /hpf Urine WBC (0-5) /hpf Hyaline Casts (0-2) /lpf Urine Mucus (None) /hpf 08/31/20 08/31/20 Range/Units 00:32 00:38 WBC (3.8-10.6) k/uL RBC (4.30-5.90) m/uL Hgb (13.0-17.5) gm/dL Hct (39.0-53.0) % MCV (80.0-100.0) fL MCH (25.0-35.0) pg MCHC (31.0-37.0) g/dL RDW (11.5-15.5) % Plt Count (150-450) k/uL MPV Neutrophils % % Lymphocytes % % Monocytes % % Eosinophils % % Basophils % % Neutrophils # (1.3-7.7) k/uL Lymphocytes # (1.0-4.8) k/uL Monocytes # (0-1.0) k/uL Eosinophils # (0-0.7) k/uL Basophils # (0-0.2) k/uL Sodium (137-145) mmol/L Potassium (3.5-5.1) mmol/L Chloride (98-107) mmol/L Carbon Dioxide (22-30) mmol/L Anion Gap mmol/L BUN (9-20) mg/dL Creatinine (0.66-1.25) mg/dL Est GFR (CKD-EPI)AfAm (>60 ml/min/1.73 sqM) Est GFR (CKD-EPI)NonAf (>60 ml/min/1.73 sqM) Glucose (74-99) mg/dL Plasma Lactic Acid Melvin (0.7-2.0) mmol/L Calcium (8.4-10.2) mg/dL Total Bilirubin (0.2-1.3) mg/dL AST (17-59) U/L ALT (4-49) U/L Alkaline Phosphatase (38-126) U/L Troponin I <0.012 (0.000-0.034) ng/mL Total Protein (6.3-8.2) g/dL Albumin (3.5-5.0) g/dL Amylase (30-110) U/L Lipase (23-300) U/L Urine Color Yellow Urine Appearance Clear (Clear) Urine pH 5.0 (5.0-8.0) Ur Specific [place] 1.036 H (1.001-1.035) Urine Protein 2+ H (Negative) Urine Glucose (UA) Negative (Negative) Urine Ketones Trace H (Negative) Urine Blood Negative (Negative) Urine Nitrite Negative (Negative) Urine Bilirubin Negative (Negative) Urine Urobilinogen <2.0 (<2.0) mg/dL Ur Leukocyte Esterase Negative (Negative) Urine RBC 1 (0-5) /hpf Urine WBC 2 (0-5) /hpf Hyaline Casts 11 H (0-2) /lpf Urine Mucus Rare H (None) /hpf - Radiology Data Radiology results: report reviewed, image reviewed CT abdomen and pelvis is obtained. Report is reviewed in its entirety. Impression by Dr. Garcia show short segments of jejunum have circumferential wall thickening, measuring up to 9 mm, can be due to under distention. Jejunitis cannot be excluded. The rectum has circumferential wall thickening, measuring up to 7 mm, stridor by subtle mesenteric stranding, may suggest proctitis. Disposition Clinical Impression: Jejunitis, Proctitis Disposition: ADMITTED IP TO THIS [facility] Condition: Serious Referrals: Hebert Caldwell DO [Primary Care Provider] - 1-2 days Decision to Admit Reason: Admit from EC Decision Date: 08/31/20 Decision Time: 02:24
[2020-08-31] MEDS: SODIUM CHLORIDE 0.9% 1,000 ML IV SCH ×3 (03:13→22:23)
[2020-08-31] MEDS: MORPHINE SULFATE 4 MG/ML SYRINGE IV PRN ×3 (08:28→22:11)
[2020-08-31] MEDS: metroNIDAZOLE-NS PMX 500 MG in SALINE 1 100ML.BAG IVPB SCH ×2 (12:13→22:12)
[2020-08-31] MEDS: PIPERACILLIN-TAZOBACTAM 3.375 GM in SODIUM CHLORIDE 0.9% 100 ML IVPB SCH ×2 (13:25→22:11)
[2020-08-31] MEDS ORDERED: NYSTATIN 100,000 UNIT/ML SUSP 500,000 UNIT/5 ML CUP PO PRN (15:44)
[2020-08-31] MEDS ORDERED: ALPRAZolam 0.25 MG TAB PO PRN (15:44)
[2020-08-31] MEDS: PANTOPRAZOLE 40 MG/10 ML VIAL IVP SCH (16:17)
[2020-08-31] MEDS: ESCITALOPRAM 10 MG TAB PO SCH (16:18)
--- NOTE | 2020-08-31 17:49 | P.HPIM ---
History of Present Illness H&P Date: 08/31/20 Chief Complaint: Abdominal pain 40-year-old male patient presents to the emergency department today for evaluation of abdominal pain and diarrhea. Patient states symptoms started yesterday and have been worsening. Patient denies any hematochezia or melena with this. States he has been nauseated and has felt close to vomiting but he has had Natalie fundoplication in the past and does not usually vomit. Denies any fever or chills. Denies any recent travel or sick contacts. Denies ingestion of questionable foods. Patient is HIV positive maintained on antiviral regimen, states his last viral load was undetectable and CD4 counts were around 430. Patient denies any recent rash, cough, shortness of breath, chest pain, back pain, numbness, tingling, dizziness, weakness, hematuria, dysuria, urinary urgency, urinary frequency, headache, visual changes, or any other complaints. Labs reviewed and did reveal elevated lactic acid 3.0. White count was mildly elevated at 11.6. CT abdomen and pelvis was obtained and did show possible jejunitis and possible proctitis. Patient was started on IV Flagyl and Zosyn and is admitted to the hospital for further evaluation by infection disease given history of HIV Review of Systems REVIEW OF SYSTEMS: CONSTITUTIONAL: No fever, no malaise, no fatigue. HEENT: No recent visual problems or hearing problems. Denied any sore throat. CARDIOVASCULAR: No chest pain, orthopnea, PND, no palpitations, no syncope. PULMONARY: No shortness of breath, no cough, no hemoptysis. GASTROINTESTINAL: No diarrhea, no nausea, no vomiting, no abdominal pain. NEUROLOGICAL: No headaches, no weakness, no numbness. HEMATOLOGICAL: Denies any bleeding or petechiae. GENITOURINARY: Denies any burning micturition, frequency, or urgency. MUSCULOSKELETAL/RHEUMATOLOGICAL: Denies any joint pain, swelling, or any muscle pain. ENDOCRINE: Denies any polyuria or polydipsia. The rest of the 14-point review of systems is negative. Past Medical History Past Medical History: GERD/Reflux Additional Past Medical History / Comment(s): rectal bleeding; nausea/vomiting, HIV. HIATAL HERNIA. ABSCESSES IN MOUTH-DR. MG EDWARD PER PT. LESION REMOVED FROM LT CREASE OF MOUTH History of Any Multi-Drug Resistant Organisms: None Reported Past Surgical History: Hernia Repair Additional Past Surgical History / Comment(s): Colonoscopy/EGD. HAVING TEETH PULLED 05/26/18 Past Anesthesia/Blood Transfusion Reactions: No Reported Reaction Past Psychological History: Anxiety, Depression Smoking Status: Current every day smoker Past Alcohol Use History: None Reported Additional Past Alcohol Use History / Comment(s): has smoked about 1 1/2 ppd for about 20 years; smokes Marijuana daily Past Drug Use History: Marijuana Additional Drug Use History / Comment(s): LAST USED MARIJUANA 1 WEEK AGO- INSTRUCTED TO REFRAIN FROM USE FOR AT LEAST 24 HOURS PRIOR TO PROCEDURE. Pt. r eports the last time he smoked marijuana WAS 05/29 - Past Family History Father Family Medical History: Coronary Artery Disease (CAD), Hypertension, Myocardial Infarction (MD) Mother History Unknown: Yes Family Medical History: No Reported History Medications and Allergies Home Medications Medication Instructions Recorded Confirmed Type Ondansetron Odt [Zofran Odt] 4 mg PO Q8HR PRN #12 tab 05/11/19 08/31/20 Rx ALPRAZolam [Xanax] 0.25 mg PO Q8H PRN 08/31/20 08/31/20 History Bictegrav/Emtricit/Tenofov Ala 1 tab PO DAILY 08/31/20 08/31/20 History [Biktarvy 50-200-25 mg Tablet] Ergocalciferol [Vitamin D2 (1250 1,250 mcg PO TH 08/31/20 08/31/20 History Mcg = 19780 Iu)] Escitalopram [Lexapro] 10 mg PO DAILY 08/31/20 08/31/20 History Multivitamins, Thera [Multivitamin 1 tab PO DAILY 08/31/20 08/31/20 History (formulary)] Nystatin 100,000 Unit/ml Susp 6 ml PO QID PRN 08/31/20 08/31/20 History [Mycostatin Oral Susp] Omeprazole [PriLOSEC] 20 mg PO DAILY 08/31/20 08/31/20 History Allergies Allergy/AdvReac Type Severity Reaction Status Date / Time No Known Allergies Allergy Verified 08/31/20 08:56 Physical Exam Vitals: Vital Signs Temp Pulse Pulse Resp BP BP Pulse Ox 08/31/20 08:00 97.6 F 61 16 111/67 98 08/31/20 04:24 97.7 F 65 18 98/62 96 08/31/20 03:24 97.7 F 65 16 98/62 96 08/31/20 02:40 98.0 F 70 18 109/70 97 08/31/20 00:53 97.8 F 78 16 101/62 98 08/30/20 23:48 98.0 F 80 18 128/75 95 Intake and Output 08/30/20 08/31/20 08/31/20 22:59 06:59 14:59 Other: Weight 73.028 kg General appearance: alert, in no apparent distress, other (Physical well- developed, well-nourished adult male patient in no acute distress. Vital signs upon presentation are temperature 98.0F, pulse 80, respirations 18, blood pressure 128/75, pulse ox 95% on room air.) Eye exam: Present: normal appearance, PERRL, EOMI. Absent: scleral icterus, conjunctival injection, periorbital swelling ENT exam: Present: normal exam, normal oropharynx, mucous membranes moist Respiratory exam: Present: normal lung sounds bilaterally. Absent: respiratory distress, wheezes, rales, rhonchi, stridor Cardiovascular Exam: Present: regular rate, normal rhythm, normal heart sounds. Absent: systolic murmur, diastolic murmur, rubs, gallop, clicks GI/Abdominal exam: Present: soft, tenderness (Periumbilical), normal bowel sounds. Absent: distended, guarding, rebound, rigid Neurological exam: Present: alert, oriented X3, CN II-XII intact Psychiatric exam: Present: normal affect, normal mood Skin exam: Present: warm, dry, intact, normal color. Absent: rash Results CBC & Chem 7: 08/31/20 00:32 08/31/20 00:32 Labs: Abnormal Lab Results - Last 24 Hours (Table) 08/31/20 08/31/20 08/31/20 Range/Units 00:32 00:32 00:32 WBC 11.7 H (3.8-10.6) k/uL Neutrophils # 8.8 H (1.3-7.7) k/uL Plasma Lactic Acid Melvin 3.0 H* (0.7-2.0) mmol/L Total Protein 8.3 H (6.3-8.2) g/dL Ur Specific Shirley (1.001-1.035) Urine Protein (Negative) Urine Ketones (Negative) Hyaline Casts (0-2) /lpf Urine Mucus (None) /hpf 08/31/20 Range/Units 00:38 WBC (3.8-10.6) k/uL Neutrophils # (1.3-7.7) k/uL Plasma Lactic Acid Melvin (0.7-2.0) mmol/L Total Protein (6.3-8.2) g/dL Ur Specific Shirley 1.036 H (1.001-1.035) Urine Protein 2+ H (Negative) Urine Ketones Trace H (Negative) Hyaline Casts 11 H (0-2) /lpf Urine Mucus Rare H (None) /hpf Thrombosis Risk Factor Assmnt - Choose All That Apply Any of the Below Risk Factors Present?: No Assessment and Plan Assessment: 1. Sepsis/jejunitis/proctitis - Patient remains on IV Zosyn and Flagyl; we will monitor CBC, CRP and pro- calcitonin levels - ID is consulted and recommendations are pending 2. HIV positive; we will reorder home medications 3. GERD/gastritis; Protonix 40 mg daily DVT prophylaxis; SCDs CODE STATUS; full code
--- NOTE | 2020-08-31 22:45 | CONS ---
CONSULTATION DATE OF SERVICE: 08/31/2020. REASON FOR CONSULTATION: 1. Proctitis/jejunitis. 2. HIV. HISTORY OF PRESENT ILLNESS: The patient is a 40-year-old male diagnosed with HIV in February of 2020. The patient follows with physician in [place] and is currently on Biktarvy for it. The patient presented to the ER at [facility] this evening for evaluation of feeling nauseated, abdominal pain and diarrhea. The patient's symptoms started yesterday with 1 day duration. The patient described the abdominal pain to be more in the lower abdominal area, dull aching to sharp intensity 7 to 8 out of 10 and no radiation with associated nausea but no vomiting and did have multiple loose stools. Denies having any blood or mucus in the stool. The patient denies having any sick contacts and did not eat anything unusual. His girlfriend at home does not have any symptoms. The patient denies having any trauma to the rectum area. The patient apparently mentioned to the ER physician, that his and CD4 count is around 430. The patient was evaluated by the ER physician. On arrival to the ER, the patient was afebrile. The patient did have white count of 11.7 with a left shift. Lactic acid was 3.8. Repeat is 1.1. Electrolytes have been normal. Liver enzymes are normal. Urine was negative. CT of abdomen and pelvis did show evidence of jejunitis or possible incomplete distention of the jejunum and proctitis. The patient was started on Zosyn and Flagyl and admitted to the hospital. Infectious Disease was consulted for further management. REVIEW OF SYSTEMS: Positive points have been mentioned in HPI. Rest of the systems are negative. PAST MEDICAL HISTORY: HIV, gastroesophageal reflux disease, previous history of rectal bleeding, hiatal hernia. PAST SURGICAL HISTORY: Hernia repair, colonoscopy, EGD. SOCIAL HISTORY: Currently every day smoker. Does admit to marijuana use. No smoking. No drinking. FAMILY HISTORY: Father history of coronary disease. ALLERGIES: No known drug allergies. MEDICATIONS: Include the patient is currently on Xanax, Lexapro, Flagyl, morphine sulfate, Narcan, Biktarvy, Zofran, Protonix, Zosyn and IV fluids. PHYSICAL EXAMINATION: Blood pressure is 104/74, pulse of 75, temperature 97.8. He is 99% on room air. General description: The patient is a middle-aged male lying in bed in no distress. No tachypnea or accessory muscles of respiration use. HEENT: Examination shows no pallor or scleral icterus. Oral mucous membranes dry. No pharyngeal erythema or thrush. NECK: Trachea central. No thyromegaly. LUNGS: Unlabored breathing. Clear to auscultation anteriorly. No wheeze or crackles. HEART: S1-S2 regular rate and rhythm. ABDOMEN: Soft, no tenderness. No guarding. No rigidity. No organomegaly. EXTREMITIES: No edema of the feet. SKIN examination: No rash or mass palpable. NEUROLOGICAL: The patient is awake, alert and oriented times three. Mood and affect normal. LABS: Hemoglobin of 15.5, white count 11.7, BUN of 15, creatinine 0.90. Electrolytes have been normal. Liver enzymes are normal. CT of abdomen and pelvis results mentioned above. DIAGNOSTIC IMPRESSION AND PLAN: 1. Patient admitted to the hospital with acute abdominal pain and diarrhea with evidence of proctitis on the CT. Possible infectious less likely ischemic in this patient with no other cardiovascular risk factors and we will need to cover for enteric gram-negative pathogen. 2. Patient with HIV, well-controlled, currently on Bactrim IV. PLAN: 1. We will obtain stool for C difficile and stool culture. 2. Continue the patient on Zosyn and restart his Biktarvy. 3. We will start the patient on clear liquid diet and advance his diet. 4. We will follow on clinical condition and further adjust medication if needed. Thank you for this consultation. We will follow this patient along with you MMODL / IJN: [id number] /
[2020-09-01] MEDS: metroNIDAZOLE-NS PMX 500 MG in SALINE 1 100ML.BAG IVPB SCH (04:07)
[2020-09-01 05:01] LABS: Basophils % (A) 1 %; Eosinophils # (A) 0.3 k/uL (0-0.7); Eosinophils % (A) 5 %; HCT 40.7 % (39.0-53.0); HGB 13.4 gm/dL (13.0-17.5); Lymphocytes # (A) 2.3 k/uL (1.0-4.8); Lymphocytes % (A) 35 %; MCH 32.6 pg (25.0-35.0); MCHC 32.9 g/dL (31.0-37.0); MCV 99.1 fL (80.0-100.0); Monocytes # (A) 0.4 k/uL (0-1.0); Monocytes % (A) 5 %; Neutrophils # (A) 3.4 k/uL (1.3-7.7); Neutrophils % (A) 53 %; Platelet Count 185 k/uL (150-450); RBC 4.11 m/uL (4.30-5.90); RDW 14.5 % (11.5-15.5); WBC 6.5 k/uL (3.8-10.6)
[2020-09-01] MEDS ORDERED: PIPERACILLIN-TAZOBACTAM 3.375 GM in SODIUM CHLORIDE 0.9% 100 ML IVPB SCH (06:00)
[2020-09-01 06:44] VITALS: RESP 16
[2020-09-01 07:40] VITALS: BP 121/72; PULSE 84; TEMP 97.9
[2020-09-01] MEDS ORDERED: NON FORMULARY DRUG (Bictegrav/Emtricit/Tenofov Ala [Biktarvy 50-200-25 Mg Tablet] 1 EACH T PO SCH (09:00)
[2020-09-01] MEDS: PANTOPRAZOLE 40 MG/10 ML VIAL IVP SCH (09:20)
[2020-09-01] MEDS: ESCITALOPRAM 10 MG TAB PO SCH (09:20)
[2020-09-01 09:25] LABS: African American GFR (CKD) 124.3 (60.0-200.0); Albumin 3.8 g/dL (3.80-4.90); Albumin/Globulin Ratio 1.81 (1.60-3.17); Anion Gap 4.3 mmol/L (4.00-12.00); BUN/Creat Ratio 13.33 Ratio (12.00-20.00); Calcium 8.6 mg/dL (8.7-10.3); Carbon Dioxide 28.7 mmol/L (21.6-31.8); Globulin 2.1 g/dL (1.6-3.3); Non-African American GFR(CKD) 107.2 (60.0-200.0); Total Bilirubin 0.4 mg/dL (0.2-1.2); Total Protein 5.9 g/dL (6.2-8.2)
--- NOTE | 2020-09-01 13:26 | P.PN ---
Subjective Progress Note Date: 09/01/20 HISTORY OF PRESENT ILLNESS This is a 40-year-old male well-known to ID service as he is under treatment for HIV. Patient presented with proctitis, jejunitis. Patient states that he does not have any abdominal pain. No diarrhea. He did have 1 bowel movement and was very hard and constipated. This was not tested of course for C. difficile toxin. Patient is afebrile, heart rate 84, blood pressure 121/72, pulse ox 90% on room air. WBC 6.5 otherwise CBC is unremarkable, electrolytes and renal function normal. PHYSICAL EXAMINATION Gen: This is a 40-year-old male resting in bed. He appears to be in no acute distress HEENT: Head is atraumatic, normocephalic. Pupils equal, round. Sclerae is an icteric. NECK: Supple. No JVD. No lymphadenopathy. LUNGS: Clear to auscultation. No wheezes or rhonchi. No intercostal retractions. HEART: Regular rate and rhythm. No murmur. ABDOMEN: Soft. Bowel sounds are present. No masses. No tenderness. EXTREMITIES: No pedal edema. No calf tenderness. NEUROLOGICAL: Patient is awake, alert and oriented x3. ASSESSMENT Acute abdominal pain secondary to proctitis on CAT scan, possible infectious, possible ischemic History of HIV, well controlled PLAN Continue Flagyl and Zosyn Plan for Augmentin 875 mg twice daily for 1 week at discharge, prescription sent to his pharmacy Continue Biktarvy Patient is cleared for discharge from infectious disease The above dictated assessment and findings were discussed with Dr. Doll. The impression and plan of care have been directed as dictated. Gema Lal nurse practitioner acting as scribe for Dr. Doll. Objective - Vital Signs Vital signs: Vital Signs Temp 97.9 F 09/01/20 07:34 Pulse 84 09/01/20 07:34 Resp 16 09/01/20 07:34 BP 121/72 09/01/20 07:34 Pulse Ox 98 09/01/20 07:34 Intake & Output 08/31/20 09/01/20 09/01/20 18:59 06:59 18:59 Intake Total 800 Balance 800 Intake: Intake, IV Titration 800 Amount Sodium Chloride 0.9% 1, 600 000 ml @ 100 mls/hr IV . Q10H [facility] Rx#:[id number] metroNIDAZOLE-NS PMX 500 100 mg In Saline 1 100ml.bag @ 100 mls/hr IVPB ONCE STA Rx#:[id number] metroNIDAZOLE-NS PMX 500 100 mg In Saline 1 100ml.bag @ 100 mls/hr IVPB Q8H [facility] Rx#:[id number] Other: # Voids 3 - Labs CBC & Chem 7: 09/01/20 04:21 09/01/20 04:21 Labs: Abnormal Lab Results - Last 24 Hours (Table) 09/01/20 09/01/20 Range/Units 04:21 04:21 RBC 4.11 L (4.30-5.90) m/uL Calcium 8.6 L (8.7-10.3) mg/dL Alkaline Phosphatase 28 L (41-126) U/L Total Protein 5.9 L (6.2-8.2) g/dL Microbiology - Last 24 Hours (Table) 08/31/20 03:10 Blood Culture - Preliminary Blood No Growth after 24 hours
[2020-09-01] MEDS ORDERED: BIKTARVY PO SCH (14:00)
--- NOTE | 2020-09-01 16:29 | P.DS ---
Providers Date of admission: 08/31/20 02:28 Expected date of discharge: 09/01/20 Attending physician: Kirk Webster Consults: 08/31/20 02:19 Consult Physician Routine Consulting Provider: Jose Elias Doll Consult Reason/Comments: Jejunitis; proctitis Do you want consulting provider notified?: Yes Primary care physician: Hebert Caldwell Hospital Course: Final diagnosis Sepsis/jejunitis/proctitis, present on admission HIV positive gastroesophageal reflux disease/gastritis DVT prophylaxis Full code Discharge disposition Patient is being discharged in a stable condition with guarded prognosis to home. Patient will follow-up with Dr. Caldwell upon discharge. Patient will continue with oral Augmentin twice daily for the next 7 days to complete the course. Patient will also continue with Biktarvy as previously scheduled. Total time taken is greater than 35 minutes. Hospital course This is a 40-year-old male who was recently admitted with abdominal pain and diarrhea and was being closely monitored. Patient was seen and evaluated by infectious disease as he has a history of HIV and is maintained on antiviral medications. Patient was started on Flagyl and Zosyn and has improved and will be continuing on oral Augmentin twice daily for the next one week to complete the course. Patient will follow up with infectious disease in the outpatient setting. Patient states his abdominal discomfort has improved and denies any nausea or vomiting and is tolerating diet. Patient instructed to increase diet slowly as tolerated over the next few days. Patient states he feels much better and would like to go home. Currently no reports of chest pain, shortness of breath, or palpitations. Patient is afebrile. No reports of nausea or vomiting and patient is tolerating diet. On exam vital signs are stable. Temp is 97.9F, pulse is 84, respirations are 16, blood pressure is 121/72, oxygen saturation is 98% on room air. Cardio S1, S2 are muffled. Respiratory shows diminished breath sounds at the bases with no wheezing or rhonchi noted. Abdomen is soft and nontender. Nervous system shows no focal deficits. Please refer to medication reconciliation sheet for a list of medications. Patient Condition at Discharge: Stable Plan - Discharge Summary Discharge Rx Participant: No New Discharge Prescriptions: New Amoxicillin/Potassium Clav [Augmentin 875-125 Tablet] 1 tab PO BID 7 Days #14 tab Continue Ondansetron Odt [Zofran ODT] 4 mg PO Q8HR PRN #12 tab PRN Reason: Nausea Nystatin 100,000 Unit/ml Susp [Mycostatin Oral Susp] 6 ml PO QID PRN PRN Reason: thrush Ergocalciferol [Vitamin D2 (1250 Mcg = 90456 Iu)] 1,250 mcg PO TH Omeprazole [PriLOSEC] 20 mg PO DAILY Escitalopram [Lexapro] 10 mg PO DAILY Bictegrav/Emtricit/Tenofov Ala [Biktarvy 50-200-25 mg Tablet] 1 tab PO DAILY ALPRAZolam [Xanax] 0.25 mg PO Q8H PRN PRN Reason: Anxiety Multivitamins, Thera [Multivitamin (formulary)] 1 tab PO DAILY Discharge Medication List Ondansetron Odt [Zofran ODT] 4 mg PO Q8HR PRN #12 tab 05/11/19 [Rx] ALPRAZolam [Xanax] 0.25 mg PO Q8H PRN 08/31/20 [History] Bictegrav/Emtricit/Tenofov Ala [Biktarvy 50-200-25 mg Tablet] 1 tab PO DAILY 08/31/20 [History] Ergocalciferol [Vitamin D2 (1250 Mcg = 89304 Iu)] 1,250 mcg PO TH 08/31/20 [History] Escitalopram [Lexapro] 10 mg PO DAILY 08/31/20 [History] Multivitamins, Thera [Multivitamin (formulary)] 1 tab PO DAILY 08/31/20 [History] Nystatin 100,000 Unit/ml Susp [Mycostatin Oral Susp] 6 ml PO QID PRN 08/31/20 [History] Omeprazole [PriLOSEC] 20 mg PO DAILY 08/31/20 [History] Amoxicillin/Potassium Clav [Augmentin 875-125 Tablet] 1 tab PO BID 7 Days #14 tab 09/01/20 [Rx] Follow up Appointment(s)/Referral(s): Hebert Caldwell DO [Primary Care Provider] - 09/09/20 11:40 am Patient Instructions/Handouts: Proctitis (DC) Activity/Diet/Wound Care/Special Instructions: Activity Limited until follow-up Follow-up with primary care provider upon discharge Continue with full liquids and advance slowly to low fiber for the next few days Follow-up with infectious disease outpatient Continue with antibiotics twice daily for the next 7 days Continue current medication regimen Discharge Disposition: HOME SELF-CARE
== END 2020-09-01 13:45 | disposition home or self-care (01) ==
LOC: EC 23:47 → 6NMEDSUR 08-31 02:28
PROVIDERS: ADMIT Hospitalist; ATTEND Hospitalist
DX: A41.9 Sepsis, unspecified organism (principal); K52.9 Noninfective gastroenteritis and colitis, unspecified; K29.70 Gastritis, unspecified, without bleeding; K62.89 Other specified diseases of anus and rectum; K21.9 Gastro-esophageal reflux disease without esophagitis; Z21 Asymptomatic human immunodeficiency virus [HIV] infection status; F32.9 Major depressive disorder, single episode, unspecified; F41.9 Anxiety disorder, unspecified; F17.210 Nicotine dependence, cigarettes, uncomplicated; F12.90 Cannabis use, unspecified, uncomplicated; Z79.899 Other long term (current) drug therapy; Z86.19 Personal history of other infectious and parasitic diseases; Z87.19 Personal history of other diseases of the digestive system; Z82.49 Family history of ischemic heart disease and other diseases of the circulatory system
CPT/HCPCS: 96376 ×2; 96365; 96366 ×2; 96367; 96375 ×2; 96361; 96372; 99285; 36415; 93005; 80053 ×2; 82150; 83605; 83690; 84484; 85025 ×2; 81001; 87040; 87045; 87046; 74177; G0378 ×2; J2543 ×2; J2270; J0500; J2405; J1885; C9113 ×2; Q9967

== ENCOUNTER → 2020-10-02 | Outpatient (CLI) | payer BC, OTHER ==
--- NOTE | 2020-10-02 16:08 | NM ---
Nuclear medicine hepatobiliary scan. HISTORY: Pain. DOSAGE: The patient received 8 ounces of ensure plus and 4.7 mCi of Technetium 99m Choletec. FINDINGS: There is normal hepatic extraction. The gallbladder is seen by 15 minutes. There is bilia ry to bowel clearance by 50 minutes. Ejection fraction is 93%. IMPRESSION: 1. No diagnostic evidence of cholecystitis. Ejection fraction is 93% which can occasionally be associ ated with hyperdynamic gallbladder. Correlate clinically.
== END | disposition home or self-care (01) ==
LOC: RADNMMAIN 12:38
PROVIDERS: ATTEND Surgery
DX: K21.00 Gastro-esophageal reflux disease with esophagitis, without bleeding (principal)
CPT/HCPCS: 78227; A9537; J2805

== ENCOUNTER → 2020-10-06 | Outpatient (CLI) | payer BC, OTHER ==
--- NOTE | 2020-10-06 11:07 | FL ---
EXAMINATION TYPE: FL UGI air DATE OF EXAM: 10/06/2020 COMPARISON: Correlation CT 08/31/2020 HISTORY: 40-year-old male K21.0, GERD with esophagitis. Patient with history of Natalie fundoplication 2 years ago. Patient reports multiple balloon dilatations since that time. Patient reports being HIV positive. TECHNIQUE: A double contrast UGI study is performed. Total fluoroscopy time: 2 minutes 51 seconds. Total images: 46. FINDINGS: The esophagus demonstrates mild, occasional tertiary peristaltic waves but otherwise normal motility and emptying into the stomach. No suspicious filling defect or fixed narrowing. There are postsurgical changes of Natalie fundoplication demonstrated but with a small hiatal hernia l ocated above the Natalie wrap. The stomach shows normal distensibility, peristalsis, and mucosal folds . No evidence of any mass or ulcer disease. No significant gastroesophageal reflux was seen during real time performance of this study. The duodenal bulb and sweep appear unremarkable. IMPRESSION: 1. Findings suggestive of a recurrent small hiatal hernia above the intact Natalie wrap. 2. Unable to elicit gastroesophageal reflux during the course of the exam. 3. Very mild occasional tertiary peristaltic waves in the esophagus. Otherwise, unremarkable upper GI exam.
== END ==
LOC: RADUSWWP 08:38
PROVIDERS: ATTEND Surgery
DX: Z21 Asymptomatic human immunodeficiency virus [HIV] infection status (principal); Z98.84 Bariatric surgery status
CPT/HCPCS: 74246

== ENCOUNTER 2020-10-14 07:21 | Day surgery (SDC) | payer BC, OTHER ==
[2020-10-08 11:39] VITALS: BMI 23.6
[~2020-10-14 07:21] MED LIST changes: +ACETAMINOPHEN TAB 500 MG TAB PO PRN; -DEXAMETHASONE SOD PHOSPHATE 10 MG/ML 1 ML VIAL IV ONE; +HEPARIN SODIUM,PORCINE 5,000 UNIT/ML 1 ML VIAL SQ PRN; -HYDROmorphone 0.5 MG/0.5 ML SYRINGE IVP PRN; +LIDOCAINE 1% (10MG/ML) FOR IV START INTRADERMA PRN; -LIDOCAINE 1% 20 ML VIAL (10MG/ML) FOR IV START INTRADERMA PRN; -MIDAZOLAM 2 MG/2 ML VIAL IV PRN; -ONDANSETRON 4 MG/2 ML VIAL IVP ONE; -SCOPOLAMINE 1.5MG/72HR PATCH TRANSDERM ONE
[2020-10-14] MEDS ORDERED: ONDANSETRON 4 MG/2 ML VIAL ONE (08:06)
[2020-10-14 08:15] VITALS: BP 129/71; PULSE 57; RESP 20; TEMP 98
== END 2020-10-14 08:25 | disposition home or self-care (01) ==
LOC: OR 07:21
PROVIDERS: ATTEND Surgery

== ENCOUNTER 2020-10-14 14:53 | Day surgery (SDC) | payer BC, OTHER ==
[~2020-10-14 14:53] MED LIST changes: -ACETAMINOPHEN TAB 500 MG TAB PO PRN; -HEPARIN SODIUM,PORCINE 5,000 UNIT/ML 1 ML VIAL SQ PRN; +LACTATED RINGERS 1,000 ML IV ONE; -LACTATED RINGERS 1,000 ML IV SCH; -LIDOCAINE 1% (10MG/ML) FOR IV START INTRADERMA PRN
[2020-10-14] MEDS ORDERED: ACETAMINOPHEN TAB 500 MG TAB PO STA (14:57)
[2020-10-14] MEDS ORDERED: HEPARIN SODIUM,PORCINE 5,000 UNIT/ML 1 ML VIAL SQ STA (14:57)
[2020-10-14] MEDS ORDERED: DEXAMETHASONE SOD PHOSPHATE 4 MG/ML 1 ML VIAL IVP ONE (15:04)
[2020-10-14] MEDS: ONDANSETRON 4 MG/2 ML VIAL ONE ×2 (15:04→18:22)
[2020-10-14] MEDS ORDERED: BUPIVACAINE-EPI 0.5%-1:200,000 10 ML VIAL SQ ONE ×2 (16:19→17:06)
[2020-10-14] MEDS ORDERED: GLYCOPYRROLATE 0.2 MG/ML 2 ML VIAL ONE (16:40)
[2020-10-14] MEDS ORDERED: MIDAZOLAM 2 MG/2 ML VIAL ONE (16:40)
[2020-10-14] MEDS ORDERED: KETOROLAC 15 MG/ML 1 ML VIAL ONE (16:40)
[2020-10-14] MEDS ORDERED: fentaNYL (PF) 50 MCG/ML 2 ML AMP ONE (16:40)
[2020-10-14] MEDS ORDERED: SUCCINYLCHOLINE CHLORIDE 100 MG/5 ML SYR IV ONE (16:40)
[2020-10-14] MEDS ORDERED: NEOSTIGMINE 1 MG/ML 10 ML VIAL ONE (16:40)
[2020-10-14] MEDS ORDERED: LIDOCAINE 1% INJ 10MG/ML (20 ML MDV) ONE (16:40)
[2020-10-14] MEDS ORDERED: PROPOFOL 10 MG/ML 20 ML VIAL IV ONE (16:40)
[2020-10-14] MEDS ORDERED: ROCURONIUM 10 MG/ML (5 ML VIAL) IV ONE (16:40)
[2020-10-14] MEDS ORDERED: SODIUM CHLORIDE 0.9% 100 ML with ceFAZolin 2,000 MG IV ONE ×2 (16:45)
[2020-10-14] MEDS: MEPERIDINE 50 MG/ML SYRINGE IVP ONE ×2 (17:43→17:48)
--- NOTE | 2020-10-14 17:45 | P.OP ---
Date of Procedure: 10/14/20 Preoperative Diagnosis: Cholecystitis Postoperative Diagnosis: Cholecystitis Procedure(s) Performed: Laparoscopic cholecystectomy Anesthesia: JAYLAN Surgeon: Ameya Tobar Estimated Blood Loss (ml): 5 Pathology: other (All bladder) Condition: stable Disposition: PACU Description of Procedure: The patient was placed on the operating table. The patient received a general endotracheal tube anesthesia. The patients abdomen was prepped and draped in the usual sterile fashion. Through an infraumbilical stab incision, the fascia of the anterior abdominal wall was grasped with a pair of Kochers and then the Veress needle was placed in the peritoneal cavity. Position of the Veress needle was confirmed with positive drop test. The abdomen was then insufflated. After adequate insufflation, the 10 mm trocar was placed in the peritoneal cavity. Following this the laparoscope was placed in the peritoneal cavity. The patient was placed in the head-up, right side up position and then a 5 mm trocar was placed in the right lateral and right subcostal position under direct visualization. A 8 mm trocar was placed in the epigastric position. The gallbladder was grasped in the fundus and infundibulum. Traction on the gallbladder was placed in the lateral and the cephalad positions. The triangle of Calot was visualized.. The cystic duct was bluntly dissected until the union of the cystic duct and common bile duct was seen. A critical view of safety was achieved. The cystic duct was then divided and sealed with the Harmonic scissors. A PDS Endoloop was then placed throughout the cystic duct stump. The cystic artery divided and sealed with the Harmonic scissors. The gallbladder was then removed from the liver bed using Harmonic scissors. The gallbladder was then extracted through the epigastric port site. Operative field was checked for any bleeding spots and Harmonic scissors was used to coagulate the liver bed. The abdomen was irrigated. The trocars were removed. The skin was closed using interrupted 3-0 Vicryl suture. Dermabond dressing were applied. The patient tolerated the procedure well.
--- NOTE | 2020-10-14 17:45 | P.GSHP ---
History of Present Illness H&P Date: 10/14/20 Chief Complaint: Right upper Quadrant pain Is a 31-year-old male with right quadrant pain. His recent HIDA scan shows a hyperkinetic gallbladder consistent with biliary hypokinesis. He presents today for laparoscopic ostectomy for chronic cholecystitis. Past Medical History Past Medical History: GERD/Reflux Additional Past Medical History / Comment(s): nausea, HIV. HIATAL HERNIA History of Any Multi-Drug Resistant Organisms: None Reported Past Surgical History: Hernia Repair Additional Past Surgical History / Comment(s): Colonoscopy/EGD. UPPER TEETH REMOVED Past Anesthesia/Blood Transfusion Reactions: No Reported Reaction Smoking Status: Current every day smoker - Past Family History Father Family Medical History: Coronary Artery Disease (CAD), Hypertension, Myocardial Infarction (OR) Mother History Unknown: Yes Family Medical History: Cancer Additional Family Medical History / Comment(s): LUNG CANCER Medications and Allergies Home Medications Medication Instructions Recorded Confirmed Type Ondansetron Odt [Zofran ODT] 4 mg PO Q8HR PRN #12 tab 05/11/19 10/14/20 Rx ALPRAZolam [Xanax] 0.25 mg PO Q8H PRN 08/31/20 10/14/20 History Bictegrav/Emtricit/Tenofov Ala 1 tab PO 1500 08/31/20 10/14/20 History [Biktarvy 50-200-25 mg Tablet] Escitalopram [Lexapro] 20 mg PO 1500 08/31/20 10/14/20 History Nystatin 100,000 Unit/ml Susp 6 ml PO QID PRN 08/31/20 10/14/20 History [Mycostatin Oral Susp] Omeprazole [PriLOSEC] 20 mg PO DAILY 08/31/20 10/14/20 History Ergocalciferol (Vitamin D2) 1,250 mcg PO TH 10/08/20 10/14/20 History [Vitamin D2 (50,000 Iu)] Allergies Allergy/AdvReac Type Severity Reaction Status Date / Time No Known Allergies Allergy Verified 10/14/20 14:52 Surgical - Exam Vital Signs Temp Pulse Resp BP Pulse Ox 97.5 F L 62 17 127/78 97 10/14/20 14:52 10/14/20 14:52 10/14/20 14:52 10/14/20 14:52 10/14/20 14:52 - General well developed, well nourished, no distress - Eyes PERRL - ENT normal pinna - Neck no masses - Respiratory normal expansion - Cardiovascular Rhythm: regular - Abdomen Abdomen: soft, non tender Assessment and Plan Assessment: Right upper quadrant pain. Chronic Cholecystitis We'll perform laparoscopic cholecystectomy.
[2020-10-14 17:52] VITALS: TEMP 98.8
[2020-10-14] MEDS ORDERED: LACTATED RINGERS 1,000 ML IV ONE (18:09)
[2020-10-14 18:28] VITALS: RESP 16
[2020-10-14 18:38] VITALS: BP 121/69; PULSE 68
== END 2020-10-14 18:46 | disposition home or self-care (01) ==
LOC: OR 14:53
PROVIDERS: ATTEND Surgery
DX: K80.10 Calculus of gallbladder with chronic cholecystitis without obstruction (principal); K21.9 Gastro-esophageal reflux disease without esophagitis; B20 Human immunodeficiency virus [HIV] disease; Z98.890 Other specified postprocedural states; F17.200 Nicotine dependence, unspecified, uncomplicated; F41.9 Anxiety disorder, unspecified; F32.9 Major depressive disorder, single episode, unspecified; Z82.49 Family history of ischemic heart disease and other diseases of the circulatory system; Z80.1 Family history of malignant neoplasm of trachea, bronchus and lung; Z79.899 Other long term (current) drug therapy
CPT/HCPCS: 88304; 47562; J2250; J1644; J1100; J2710; J2175; J2405; J0690; J2001; J3010; J1885; J0330; J2704

== ENCOUNTER 2021-02-15 11:50 | Emergency (ER) | payer BC, OTHER ==
[2021-02-15] MEDS ORDERED: SODIUM CHLORIDE 0.9% 1,000 ML IV ONE (12:14)
--- NOTE | 2021-02-15 12:20 | ED ---
General Adult HPI - General Stated complaint: infection Time Seen by Provider: 02/15/21 12:02 - History of Present Illness Initial comments: Is a 40-year-old male with a history of HIV, hiatal hernia post darrell fundoplication, oral candidiasis, cholecystitis and cholecystectomy, colitis who presents emergency department for multiple complaints. The patient states that he was diagnosed with HIV in February 2020. He states is been taking antiviral medication since that time however over the last few months has noticed that his CD4 count has decreased. He states that since that time of diagnosis he is had shingles multiple times, oral candidiasis, multiple episodes of colitis. He states he keeps getting reoccurring infections. He states he sees an infectious disease doctor out of [facility] and has been compliant with his medications however has still noticed that his CD4 counts are dropping. The patient states that over the last few days he's noticed increased amounts of bloody diarrhea and back and rectal pain. Patient states he is noticed a foul odor to his stool as well. Patient admits to intermittent low-grade fevers. The patient's also had intermittent episodes of chest discomfort. He has a chronic cough that he attributes to his history of smoking. Denies any nausea or vomiting however does have a history of GERD. He states he's been having normal amount of urination. No dysuria. He denies any rash currently. He states he does not have any abdominal pain currently however does get abdominal pain frequently intermittently. The patient denies any lower extremity weakness or tingling. No loss of bowel or bladder function. No saddle anesthesia. He denies any other acute complaints. - Related Data Home Medications Medication Instructions Recorded Confirmed Bictegrav/Emtricit/Tenofov Ala 1 tab PO DAILY 08/31/20 02/15/21 [Biktarvy 50-200-25 mg Tablet] Escitalopram [Lexapro] 20 mg PO DAILY 08/31/20 02/15/21 Ergocalciferol (Vitamin D2) 1,250 mcg PO TH 10/08/20 02/15/21 [Vitamin D2 (50,000 Iu)] Meclizine [Antivert] 25 mg PO TID 02/15/21 02/15/21 Pantoprazole [Protonix] 40 mg PO DAILY 02/15/21 02/15/21 Previous Rx's Medication Instructions Recorded Ondansetron Odt [Zofran ODT] 4 mg PO Q8HR PRN #12 tab 05/11/19 Allergies Allergy/AdvReac Type Severity Reaction Status Date / Time No Known Allergies Allergy Verified 02/15/21 14:31 Review of Systems ROS Statement: Those systems with pertinent positive or pertinent negative responses have been documented in the HPI. ROS Other: All systems not noted in ROS Statement are negative. Past Medical History Past Medical History: GERD/Reflux Additional Past Medical History / Comment(s): nausea, HIV. HIATAL HERNIA History of Any Multi-Drug Resistant Organisms: None Reported Past Surgical History: Hernia Repair Additional Past Surgical History / Comment(s): Colonoscopy/EGD. UPPER TEETH REMOVED Past Anesthesia/Blood Transfusion Reactions: No Reported Reaction Smoking Status: Current every day smoker - Past Family History Father Family Medical History: Coronary Artery Disease (CAD), Hypertension, Myocardial Infarction ([place]) Mother History Unknown: Yes Family Medical History: Cancer Additional Family Medical History / Comment(s): LUNG CANCER General Exam - General Exam Comments Initial Comments: Constitutional: Awake alert Appears comfortable Head: Normocephalic atraumatic Eyes: no conjunctival injection No scleral icterus EOMI ENT: Oral mucosal appears moist and pink without any erythema or evidence for thrush Neck: No JVD Supple Heart: Regular rate rhythm normal S1-S2 no murmurs Lungs: Clear to auscultation bilaterally No wheezing No rales Abdomen: Soft nondistended nontender Extremities: Non edematous DP pulses intact Radial pulses intact, the patient reports tenderness to palpation in the lumbar spine area Neuro: A&Ox3, 5 out of 5 strength with hip flexion, knee extension and extension, dorsiflexion and plantarflexion, 2 out of 4 patellar reflexes No focal neurologic deficits Psych: Appropriate mood and affect Course Vital Signs 02/15/21 02/15/21 02/15/21 12:01 13:35 15:14 Temperature 98.8 F Pulse Rate 67 67 76 Respiratory 22 18 18 Rate Blood Pressure 131/88 124/75 114/75 O2 Sat by Pulse 99 97 96 Oximetry 02/15/21 16:43 Temperature 98.0 F Pulse Rate 74 Respiratory 18 Rate Blood Pressure 123/78 O2 Sat by Pulse 97 Oximetry EKG Findings - EKG Comments: EKG Findings:: EKG showing normal sinus rhythm with a rate 74. No abnormal ST segment changes. There are some T-wave inversions in lead II, III, and F aVF and also some biphasic appearing T's in V3 through V6. QTC 412. Other intervals normal. No ectopy. Medical Decision Making - Medical Decision Making Is a 40-year-old male who presents emergency department for multiple complaints. The patient has stable vital signs on arrival. No real focal findings on examination. He states that he had some lower abdominal pain. No tenderness on his abdominal exam. Lungs are clear. Patient had extensive workup performed. There is no focal findings with regard to the bacterial infection. UA was negative per chest x-ray is negative. CT showed evidence for possible enteritis. No evidence for colitis or proctitis like previously. I explained this all to the patient. He stated that he needed to follow-up closely with his infectious disease physician regarding his CD4 counts and his HIV treatment. I told that I would give him Dr. Carey eat information to follow-up with him if he wanted a second opinion. The patient was agreeable to this. A told he can return if any worsening or changing symptoms. All questions were answered. - Lab Data Result diagrams: 02/15/21 12:23 02/15/21 12:23 Lab Results 02/15/21 02/15/21 02/15/21 Range/Units 12:23 12:23 12:23 WBC 8.6 (3.8-10.6) k/uL RBC 4.27 L (4.30-5.90) m/uL Hgb 14.6 (13.0-17.5) gm/dL Hct 41.5 (39.0-53.0) % MCV 97.3 (80.0-100.0) fL MCH 34.3 (25.0-35.0) pg MCHC 35.2 (31.0-37.0) g/dL RDW 14.0 (11.5-15.5) % Plt Count 180 (150-450) k/uL MPV 7.5 Neutrophils % 67 % Lymphocytes % 24 % Monocytes % 4 % Eosinophils % 4 % Basophils % 1 % Neutrophils # 5.7 (1.3-7.7) k/uL Lymphocytes # 2.0 (1.0-4.8) k/uL Monocytes # 0.4 (0-1.0) k/uL Eosinophils # 0.3 (0-0.7) k/uL Basophils # 0.1 (0-0.2) k/uL PT 10.5 (9.0-12.0) sec INR 1.0 (<1.2) APTT 24.2 (22.0-30.0) sec Sodium (137-145) mmol/L Potassium (3.5-5.1) mmol/L Chloride (98-107) mmol/L Carbon Dioxide (22-30) mmol/L Anion Gap mmol/L BUN (9-20) mg/dL Creatinine (0.66-1.25) mg/dL Est GFR (CKD-EPI)AfAm (>60 ml/min/1.73 sqM) Est GFR (CKD-EPI)NonAf (>60 ml/min/1.73 sqM) Glucose (74-99) mg/dL Calcium (8.4-10.2) mg/dL Magnesium (1.6-2.3) mg/dL Total Bilirubin (0.2-1.3) mg/dL AST (17-59) U/L ALT (4-49) U/L Alkaline Phosphatase (38-126) U/L Troponin I (0.000-0.034) ng/mL Total Protein (6.3-8.2) g/dL Albumin (3.5-5.0) g/dL Lipase (23-300) U/L Urine Color Yellow Urine Appearance Turbid (Clear) Urine pH 8.0 (5.0-8.0) Ur Specific [place] 1.021 (1.001-1.035) Urine Protein Trace H (Negative) Urine Glucose (UA) Negative (Negative) Urine Ketones Negative (Negative) Urine Blood Negative (Negative) Urine Nitrite Negative (Negative) Urine Bilirubin Negative (Negative) Urine Urobilinogen <2.0 (<2.0) mg/dL Ur Leukocyte Esterase Negative (Negative) Urine RBC 1 (0-5) /hpf Amorphous Sediment Occasional H (None) /hpf Urine Bacteria Moderate H (None) /hpf Urine Mucus Rare H (None) /hpf 02/15/21 02/15/21 Range/Units 12:23 12:23 WBC (3.8-10.6) k/uL RBC (4.30-5.90) m/uL Hgb (13.0-17.5) gm/dL Hct (39.0-53.0) % MCV (80.0-100.0) fL MCH (25.0-35.0) pg MCHC (31.0-37.0) g/dL RDW (11.5-15.5) % Plt Count (150-450) k/uL MPV Neutrophils % % Lymphocytes % % Monocytes % % Eosinophils % % Basophils % % Neutrophils # (1.3-7.7) k/uL Lymphocytes # (1.0-4.8) k/uL Monocytes # (0-1.0) k/uL Eosinophils # (0-0.7) k/uL Basophils # (0-0.2) k/uL PT (9.0-12.0) sec INR (<1.2) APTT (22.0-30.0) sec Sodium 138 (137-145) mmol/L Potassium 3.9 (3.5-5.1) mmol/L Chloride 102 (98-107) mmol/L Carbon Dioxide 30 (22-30) mmol/L Anion Gap 6 mmol/L BUN 20 (9-20) mg/dL Creatinine 0.76 (0.66-1.25) mg/dL Est GFR (CKD-EPI)AfAm >90 (>60 ml/min/1.73 sqM) Est GFR (CKD-EPI)NonAf >90 (>60 ml/min/1.73 sqM) Glucose 111 H (74-99) mg/dL Calcium 9.4 (8.4-10.2) mg/dL Magnesium 2.1 (1.6-2.3) mg/dL Total Bilirubin 0.2 (0.2-1.3) mg/dL AST 32 (17-59) U/L ALT 21 (4-49) U/L Alkaline Phosphatase 47 (38-126) U/L Troponin I <0.012 (0.000-0.034) ng/mL Total Protein 7.4 (6.3-8.2) g/dL Albumin 4.5 (3.5-5.0) g/dL Lipase 70 (23-300) U/L Urine Color Urine Appearance (Clear) Urine pH (5.0-8.0) Ur Specific [place] (1.001-1.035) Urine Protein (Negative) Urine Glucose (UA) (Negative) Urine Ketones (Negative) Urine Blood (Negative) Urine Nitrite (Negative) Urine Bilirubin (Negative) Urine Urobilinogen (<2.0) mg/dL Ur Leukocyte Esterase (Negative) Urine RBC (0-5) /hpf Amorphous Sediment (None) /hpf Urine Bacteria (None) /hpf Urine Mucus (None) /hpf Disposition Clinical Impression: HIV (human immunodeficiency virus infection), Gastroenteritis Disposition: HOME SELF-CARE Condition: Stable Instructions (If sedation given, give patient instructions): Gastroenteritis (ED) Is patient prescribed a controlled substance at d/c from ED?: No Referrals: Hebert Caldwell DO [Primary Care Provider] - 1-2 days Jose Elias Doll MD [STAFF PHYSICIAN] - 1-2 days
[2021-02-15 12:57] LABS: Basophils # (A) 0.1 k/uL (0-0.2); Basophils % (A) 1 %; Eosinophils # (A) 0.3 k/uL (0-0.7); Eosinophils % (A) 4 %; HCT 41.5 % (39.0-53.0); HGB 14.6 gm/dL (13.0-17.5); Lymphocytes % (A) 24 %; MCH 34.3 pg (25.0-35.0); MCHC 35.2 g/dL (31.0-37.0); MCV 97.3 fL (80.0-100.0); Mean Platelet Volume 7.5; Monocytes # (A) 0.4 k/uL (0-1.0); Monocytes % (A) 4 %; Neutrophils # (A) 5.7 k/uL (1.3-7.7); Neutrophils % (A) 67 %; Platelet Count 180 k/uL (150-450); RBC 4.27 m/uL (4.30-5.90); WBC 8.6 k/uL (3.8-10.6)
[2021-02-15 13:00] LABS: Amorphous Sediment,Urine Occasional /hpf; Appearance,Urine Turbid (Clear); Bacteria,Urine Moderate /hpf; Bilirubin,Urine Negative (Negative); Blood,Urine Negative (Negative); Color,Urine Yellow; Glucose,Urine (UA) Negative (Negative); Ketones,Urine Negative (Negative); Leukocyte Esterase,Urine Negative (Negative); Mucus,Urine Rare /hpf; Nitrite,Urine Negative (Negative); Protein,Urine Trace (Negative); RBC,Urine 1 /hpf (0-5); Specific Gravity,Urine 1.021 (1.001-1.035); Urobilinogen,Urine <2.0 mg/dL (<2.0)
[2021-02-15 13:06] LABS: Partial Thromboplastin Time 24.2 sec (22.0-30.0); Prothrombin Time 10.5 sec (9.0-12.0)
[2021-02-15 13:07] LABS: ALT 21 U/L (4-49); AST 32 U/L (17-59); African American GFR (CKD) >90 (>60 ml/min/1.73 sqM); Albumin 4.5 g/dL (3.5-5.0); Alkaline Phosphatase 47 U/L (38-126); Anion Gap 6 mmol/L; Blood Urea Nitrogen 20 mg/dL (9-20); Calcium 9.4 mg/dL (8.4-10.2); Carbon Dioxide 30 mmol/L (22-30); Chloride 102 mmol/L (98-107); Glucose 111 mg/dL (74-99); Lipase 70 U/L (23-300); Magnesium 2.1 mg/dL (1.6-2.3); Non-African American GFR(CKD) >90 (>60 ml/min/1.73 sqM); Potassium 3.9 mmol/L (3.5-5.1); Sodium 138 mmol/L (137-145); Total Bilirubin 0.2 mg/dL (0.2-1.3); Total Protein 7.4 g/dL (6.3-8.2)
[2021-02-15 13:36] VITALS: RESP 18
--- NOTE | 2021-02-15 14:29 | CT ---
EXAMINATION TYPE: CT abdomen pelvis w con, CT lumbar spine w con DATE OF EXAM: 02/15/2021 COMPARISON: CT 08/31/2020 HISTORY: Infection, back pain, h/o colitis and HIV CT DLP: 1373.2 (accession [id number]), Included in abd/pel (accession [id number]) mGycm Automated exposure control for dose reduction was used. TECHNIQUE: Helical acquisition of images from the lung bases through the pelvis have been completed. CONTRAST: Performed without Oral Contrast and with IV Contrast, patient injected with 100 mL of Isovue 300. Hel ical imaging through the lumbar spine. Coronal sagittal reconstructions. FINDINGS: Postop changes are noted at the gastroesophageal junction status post Natalie fundoplication LUNG BASES: No significant abnormality is appreciated. AORTA: No significant abnormality is appreciated. LIVER/GB: Patient is post cholecystectomy.. PANCREAS: No significant abnormality is seen. SPLEEN: No significant abnormality is seen. ADRENALS: No significant abnormality is seen. KIDNEYS: No significant abnormality is seen. REPRODUCTIVE ORGANS: No significant abnormality is seen BOWEL: Small bowel folds show somewhat thickened appearance. There is some distended loops of small bowel, fluid-filled loops. There is retained fecal debris throughout much of the distribution of the colon as well as some fluid-filled loops of colon towards the right. FREE AIR: No Free Air visible. ASCITES: None visible. PELVIC ADENOPATHY: None visualized. RETROPERITONEAL ADENOPATHY: No Retroperitoneal Adenopathy visible. URINARY BLADDER: No significant abnormality is seen. OSSEOUS STRUCTURES: No significant abnormality is seen. IMPRESSION: CORRELATE FOR GASTROENTERITIS CT lumbar spine: Correlation prior CT 02/23/2020 There is no interval change. Lumbar vertebral bodies show preserved height and alignment. Partial sac ralization present on the right at L5. Lumbar vertebral bodies are intact. There is no significant sp inal stenosis. No evident disc herniation, spinal stenosis, or significant foraminal encroachment. Mi nimal posterior disc bulge L4-5 effaces the anterior thecal sac. IMPRESSION: No acute abnormality, see dictated report prior lumbar spine CT 02/23/2020
--- NOTE | 2021-02-15 15:47 | XR ---
EXAMINATION TYPE: XR chest 2V DATE OF EXAM: 02/15/2021 COMPARISON: Chest x-ray 06/15/2020 HISTORY: Intermittent chest pain TECHNIQUE: Frontal and lateral views of the chest are obtained. FINDINGS: There is no focal air space opacity, pleural effusion, or pneumothorax seen. The cardiac silhouette size is within normal limits. The osseous structures are intact. IMPRESSION: No acute cardiopulmonary process.
[2021-02-15 16:47] VITALS: BP 123/78; PULSE 74; TEMP 98
[2021-02-17 10:55] LABS: T4/T8 Ratio (CD4:CD8) 0.3 (1.0-3.7)
== END 2021-02-15 16:43 | disposition home or self-care (01) ==
LOC: EC 11:50
DX: K21.9 Gastro-esophageal reflux disease without esophagitis (principal); B20 Human immunodeficiency virus [HIV] disease; F17.200 Nicotine dependence, unspecified, uncomplicated; Z79.899 Other long term (current) drug therapy
CPT/HCPCS: 36415; 93005; 80053; 86360; 83690; 83735; 84484; 85025; 85610; 85730; 81001; 71046; 72132; 74177; 96360; 99284; Q9967

== ENCOUNTER 2021-02-23 06:12 | Emergency (ER) | payer OTHER ==
[2021-02-23] MEDS ORDERED: SODIUM CHLORIDE 0.9% 1,000 ML IV STA (06:25)
[2021-02-23] MEDS ORDERED: ONDANSETRON 4 MG/2 ML VIAL IVP STA (06:25)
[2021-02-23 06:33] VITALS: RESP 18; TEMP 99.1
--- NOTE | 2021-02-23 06:35 | ED ---
Nausea/Vomiting/Diarrhea HPI - General Chief complaint: Nausea/Vomiting/Diarrhea Stated complaint: Nausea, vomiting Time Seen by Provider: 02/23/21 06:17 Source: EMS Mode of arrival: EMS - History of Present Illness Initial comments: Patient is a 40-year-old male with history of HIV, presenting to the emergency department via EMS with complaints of nausea and vomiting since about 10 PM last night. He states she's also been having intermittent diarrhea over the past month. He states he talked to his PCP and they were concerned for C. diff. He was here last week for similar complaint. He states is not tested for C. diff. He denies any abdominal pain, some occasional cramping. He does have history cholecystectomy, gastric bypass. He denies any chest pain or shortness of breath, no fevers or chills. Denies any hematuria, is been having normal bowel movements. He has no further complaints at this time. - Related Data Home Medications Medication Instructions Recorded Confirmed Bictegrav/Emtricit/Tenofov Ala 1 tab PO DAILY 08/31/20 02/23/21 [Biktarvy 50-200-25 mg Tablet] Escitalopram [Lexapro] 20 mg PO DAILY 08/31/20 02/23/21 Ergocalciferol (Vitamin D2) 1,250 mcg PO TH 10/08/20 02/23/21 [Vitamin D2 (50,000 Iu)] Meclizine [Antivert] 25 mg PO TID 02/15/21 02/23/21 Pantoprazole [Protonix] 40 mg PO DAILY 02/15/21 02/23/21 Previous Rx's Medication Instructions Recorded Ondansetron Odt [Zofran ODT] 4 mg PO Q8HR PRN #12 tab 05/11/19 Allergies Allergy/AdvReac Type Severity Reaction Status Date / Time No Known Allergies Allergy Verified 02/23/21 08:10 Review of Systems ROS Statement: Those systems with pertinent positive or pertinent negative responses have been documented in the HPI. ROS Other: All systems not noted in ROS Statement are negative. Past Medical History Past Medical History: GERD/Reflux Additional Past Medical History / Comment(s): nausea, HIV. HIATAL HERNIA, Last CD4 count 301 History of Any Multi-Drug Resistant Organisms: None Reported Past Surgical History: Cholecystectomy, Hernia Repair Additional Past Surgical History / Comment(s): Colonoscopy/EGD. UPPER TEETH REMOVED Past Anesthesia/Blood Transfusion Reactions: No Reported Reaction Past Psychological History: Anxiety, Depression Smoking Status: Current every day smoker Past Alcohol Use History: None Reported Past Drug Use History: None Reported - Past Family History Father Family Medical History: Coronary Artery Disease (CAD), Hypertension, Myocardial Infarction ([place]) Mother History Unknown: Yes Family Medical History: Cancer Additional Family Medical History / Comment(s): LUNG CANCER General Exam - General Exam Comments Initial Comments: GENERAL: Patient is well-developed and well-nourished. Patient is nontoxic and in no acute distress. HEAD: Atraumatic, normocephalic. EYES: Pupils equal round and reactive to light, extraocular movements intact, sclera anicteric, conjunctiva are normal. Eyelids were unremarkable. ENT: TMs normal, nares patent, oropharynx clear without exudates. Moist mucous membranes. NECK: Normal range of motion, supple without lymphadenopathy or JVD. LUNGS: Unlabored respirations. Breath sounds clear to auscultation bilaterally and equal. No wheezes rales or rhonchi. HEART: Regular rate and rhythm without murmurs, rubs or gallops. ABDOMEN: Soft, nontender, normoactive bowel sounds. No guarding, no rebound. No masses appreciated. : Deferred MUSCULOSKELETAL: Normal extremities with adequate strength and normal range of motion, no pitting or edema. No clubbing or cyanosis. NEUROLOGICAL: Patient is alert and oriented x 3. Motor and sensory are also intact. Cranial nerves II through XII grossly intact. Symmetrical smile. Normal speech, normal gait. PSYCH: Normal mood, normal affect. SKIN: Warm, Dry, normal turgor, no rashes or lesions noted. Course Vital Signs 02/23/21 06:23 Temperature 99.1 F Pulse Rate 91 Respiratory 18 Rate Blood Pressure 122/81 O2 Sat by Pulse 95 Oximetry Medical Decision Making - Medical Decision Making Patient is a 40-year-old male with history of HIV, presented with nausea and vomiting via EMS. Started about 10 PM last night. His vitals are stable. Does have history of diarrhea intermittent for 1 month as well. No fevers. Patient has a white count of 17.4, most likely reactive. Rest of labs within normal limits, lactic acid is 1.1. Urine is normal, C. diff is negative. Patient was given fluids, Zofran, Protonix and Bentyl. He does report some improvement of symptoms. I recommended following up with his PCP as well as a GI doctor. Patient does have appointment with a new doctor down at [facility] in a few weeks. He is stable for discharge and he is in agreement with this plan of care. Return parameters were discussed with him and he verbalized underst anding. Case discussed with Dr. Vásquez. - Lab Data Result diagrams: 02/23/21 06:57 02/23/21 06:57 Lab Results 02/23/21 02/23/21 02/23/21 Range/Units 06:57 06:57 06:57 WBC 17.4 H (3.8-10.6) k/uL RBC 4.75 (4.30-5.90) m/uL Hgb 15.8 (13.0-17.5) gm/dL Hct 47.7 (39.0-53.0) % MCV 100.5 H (80.0-100.0) fL MCH 33.3 (25.0-35.0) pg MCHC 33.2 (31.0-37.0) g/dL RDW 14.8 (11.5-15.5) % Plt Count 190 (150-450) k/uL MPV 7.7 Neutrophils % 89 % Lymphocytes % 4 % Monocytes % 4 % Eosinophils % 2 % Basophils % 1 % Neutrophils # 15.6 H (1.3-7.7) k/uL Lymphocytes # 0.7 L (1.0-4.8) k/uL Monocytes # 0.6 (0-1.0) k/uL Eosinophils # 0.3 (0-0.7) k/uL Basophils # 0.1 (0-0.2) k/uL Macrocytosis Slight Sodium 141 (137-145) mmol/L Potassium 4.2 (3.5-5.1) mmol/L Chloride 104 (98-107) mmol/L Carbon Dioxide 30 (22-30) mmol/L Anion Gap 7 mmol/L BUN 19 (9-20) mg/dL Creatinine 0.82 (0.66-1.25) mg/dL Est GFR (CKD-EPI)AfAm >90 (>60 ml/min/1.73 sqM) Est GFR (CKD-EPI)NonAf >90 (>60 ml/min/1.73 sqM) Glucose 119 H (74-99) mg/dL Plasma Lactic Acid Melvin 1.1 (0.7-2.0) mmol/L Calcium 9.2 (8.4-10.2) mg/dL Total Bilirubin 0.4 (0.2-1.3) mg/dL AST 46 (17-59) U/L ALT 42 (4-49) U/L Alkaline Phosphatase 36 L (38-126) U/L Total Protein 7.5 (6.3-8.2) g/dL Albumin 4.5 (3.5-5.0) g/dL Urine Color Urine Appearance (Clear) Urine pH (5.0-8.0) Ur Specific [place] (1.001-1.035) Urine Protein (Negative) Urine Glucose (UA) (Negative) Urine Ketones (Negative) Urine Blood (Negative) Urine Nitrite (Negative) Urine Bilirubin (Negative) Urine Urobilinogen (<2.0) mg/dL Ur Leukocyte Esterase (Negative) Urine WBC (0-5) /hpf Ur Squamous Epith Cells (0-4) /hpf Urine Mucus (None) /hpf C. difficile (EIA) Intrp (Negative) 02/23/21 02/23/21 Range/Units 07:13 07:13 WBC (3.8-10.6) k/uL RBC (4.30-5.90) m/uL Hgb (13.0-17.5) gm/dL Hct (39.0-53.0) % MCV (80.0-100.0) fL MCH (25.0-35.0) pg MCHC (31.0-37.0) g/dL RDW (11.5-15.5) % Plt Count (150-450) k/uL MPV Neutrophils % % Lymphocytes % % Monocytes % % Eosinophils % % Basophils % % Neutrophils # (1.3-7.7) k/uL Lymphocytes # (1.0-4.8) k/uL Monocytes # (0-1.0) k/uL Eosinophils # (0-0.7) k/uL Basophils # (0-0.2) k/uL Macrocytosis Sodium (137-145) mmol/L Potassium (3.5-5.1) mmol/L Chloride (98-107) mmol/L Carbon Dioxide (22-30) mmol/L Anion Gap mmol/L BUN (9-20) mg/dL Creatinine (0.66-1.25) mg/dL Est GFR (CKD-EPI)AfAm (>60 ml/min/1.73 sqM) Est GFR (CKD-EPI)NonAf (>60 ml/min/1.73 sqM) Glucose (74-99) mg/dL Plasma Lactic Acid Melvin (0.7-2.0) mmol/L Calcium (8.4-10.2) mg/dL Total Bilirubin (0.2-1.3) mg/dL AST (17-59) U/L ALT (4-49) U/L Alkaline Phosphatase (38-126) U/L Total Protein (6.3-8.2) g/dL Albumin (3.5-5.0) g/dL Urine Color Yellow Urine Appearance Clear (Clear) Urine pH 5.5 (5.0-8.0) Ur Specific [place] 1.029 (1.001-1.035) Urine Protein 1+ H (Negative) Urine Glucose (UA) Negative (Negative) Urine Ketones Trace H (Negative) Urine Blood Negative (Negative) Urine Nitrite Negative (Negative) Urine Bilirubin Negative (Negative) Urine Urobilinogen 2.0 (<2.0) mg/dL Ur Leukocyte Esterase Negative (Negative) Urine WBC <1 (0-5) /hpf Ur Squamous Epith Cells <1 (0-4) /hpf Urine Mucus Many H (None) /hpf C. difficile (EIA) Intrp Negative (Negative) Disposition Clinical Impression: Gastroenteritis, Nausea & vomiting Disposition: HOME SELF-CARE Condition: Stable Instructions (If sedation given, give patient instructions): Acute Nausea and Vomiting (ED) Additional Instructions: Please return to the Emergency Department if symptoms worsen or any other concerns. Recommend following up with your PCP and GI doctor as discussed. Continue with your protonix daily. Is patient prescribed a controlled substance at d/c from ED?: No Referrals: Hebert Caldwell DO [Primary Care Provider] - 1-2 days Time of Disposition: 08:16
[2021-02-23 07:11] LABS: ALT 42 U/L (4-49); AST 46 U/L (17-59); African American GFR (CKD) >90 (>60 ml/min/1.73 sqM); Albumin 4.5 g/dL (3.5-5.0); Alkaline Phosphatase 36 U/L (38-126); Anion Gap 7 mmol/L; Blood Urea Nitrogen 19 mg/dL (9-20); Calcium 9.2 mg/dL (8.4-10.2); Carbon Dioxide 30 mmol/L (22-30); Chloride 104 mmol/L (98-107); Glucose 119 mg/dL (74-99); Non-African American GFR(CKD) >90 (>60 ml/min/1.73 sqM); Potassium 4.2 mmol/L (3.5-5.1); Sodium 141 mmol/L (137-145); Total Bilirubin 0.4 mg/dL (0.2-1.3); Total Protein 7.5 g/dL (6.3-8.2)
[2021-02-23 07:12] LABS: Basophils # (A) 0.1 k/uL (0-0.2); Basophils % (A) 1 %; Eosinophils # (A) 0.3 k/uL (0-0.7); Eosinophils % (A) 2 %; HCT 47.7 % (39.0-53.0); HGB 15.8 gm/dL (13.0-17.5); Lymphocytes # (A) 0.7 k/uL (1.0-4.8); Lymphocytes % (A) 4 %; MCH 33.3 pg (25.0-35.0); MCHC 33.2 g/dL (31.0-37.0); MCV 100.5 fL (80.0-100.0); Macrocytosis Slight; Mean Platelet Volume 7.7; Monocytes # (A) 0.6 k/uL (0-1.0); Monocytes % (A) 4 %; Neutrophils # (A) 15.6 k/uL (1.3-7.7); Neutrophils % (A) 89 %; Platelet Count 190 k/uL (150-450); RBC 4.75 m/uL (4.30-5.90); RDW 14.8 % (11.5-15.5); WBC 17.4 k/uL (3.8-10.6)
[2021-02-23 07:29] LABS: Appearance,Urine Clear (Clear); Bilirubin,Urine Negative (Negative); Blood,Urine Negative (Negative); Color,Urine Yellow; Glucose,Urine (UA) Negative (Negative); Ketones,Urine Trace (Negative); Leukocyte Esterase,Urine Negative (Negative); Mucus,Urine Many /hpf; Nitrite,Urine Negative (Negative); PH, Urine 5.5 (5.0-8.0); Protein,Urine 1+ (Negative); Specific Gravity,Urine 1.029 (1.001-1.035); Squamous Epithelial Cell,Urine <1 /hpf (0-4); WBC,Urine <1 /hpf (0-5)
[2021-02-23] MEDS ORDERED: PANTOPRAZOLE 40 MG/10 ML VIAL IVP STA (08:13)
[2021-02-23] MEDS ORDERED: DICYCLOMINE 20 MG TAB PO STA (08:13)
[2021-02-23 08:44] VITALS: BP 103/76; PULSE 60
== END 2021-02-23 08:58 | disposition home or self-care (01) ==
LOC: EC 06:12
DX: K52.9 Noninfective gastroenteritis and colitis, unspecified (principal); K21.9 Gastro-esophageal reflux disease without esophagitis; F32.9 Major depressive disorder, single episode, unspecified; F41.9 Anxiety disorder, unspecified; F17.200 Nicotine dependence, unspecified, uncomplicated; Z79.899 Other long term (current) drug therapy; Z82.49 Family history of ischemic heart disease and other diseases of the circulatory system; Z80.1 Family history of malignant neoplasm of trachea, bronchus and lung; Z98.84 Bariatric surgery status
CPT/HCPCS: 36415; 80053; 83605; 85025; 81001; 87324; 96374; 96375; 96361; 99284; J2405; C9113

== ENCOUNTER → 2021-05-28 | Outpatient (CLI) | payer OTHER ==
--- NOTE | 2021-05-28 08:42 | CT ---
EXAMINATION TYPE: CT chest wo/w con DATE OF EXAM: 05/28/2021 COMPARISON: None HISTORY: Hemoptysis CT DLP: 444.60 mGycm Automated exposure control for dose reduction was used. CONTRAST: CT scan of the chest is performed without and with IV Contrast, patient injected with 100 ml mL of Is ovue 300. FINDINGS: LUNGS: The lungs are grossly clear, there is no concerning parenchymal mass or nodule identified. T here is no pleural effusion or pneumothorax seen. The tracheobronchial tree is patent. MEDIASTINUM: There are no greater than 1 cm hilar or mediastinal lymph nodes. No pericardial effusi on is seen. Thoracic aorta is of normal caliber. The heart is not enlarged. UPPER ABDOMEN: No significant abnormality appreciated. OTHER: No additional significant abnormality is seen. IMPRESSION: No distinct abnormality identified to account for the patient's symptoms.
== END | disposition home or self-care (01) ==
LOC: RADCTMAIN 07:57
PROVIDERS: ATTEND Registered Nurse
DX: R04.2 Hemoptysis (principal)
CPT/HCPCS: 71270; Q9967

== ENCOUNTER 2021-07-30 22:24 | Emergency (ER) | payer OTHER ==
[2021-07-30 22:31] VITALS: RESP 20; TEMP 97.8
[2021-07-31] MEDS: SODIUM CHLORIDE 0.9% 1,000 ML IV STA (00:14)
[2021-07-31 00:41] LABS: ALT 28 U/L (4-49); AST 38 U/L (17-59); African American GFR (CKD) >90 (>60 ml/min/1.73 sqM); Albumin 4.5 g/dL (3.5-5.0); Alkaline Phosphatase 39 U/L (38-126); Amylase 70 U/L (30-110); Anion Gap 9 mmol/L; Blood Urea Nitrogen 19 mg/dL (9-20); Calcium 9.6 mg/dL (8.4-10.2); Carbon Dioxide 32 mmol/L (22-30); Chloride 99 mmol/L (98-107); Glucose 130 mg/dL (74-99); Lipase 58 U/L (23-300); Non-African American GFR(CKD) 85 (>60 ml/min/1.73 sqM); Potassium 4.4 mmol/L (3.5-5.1); Sodium 140 mmol/L (137-145); Total Bilirubin 0.3 mg/dL (0.2-1.3); Total Protein 8.1 g/dL (6.3-8.2)
[2021-07-31 01:19] LABS: HCT 50.2 % (39.0-53.0); HGB 16.9 gm/dL (13.0-17.5); MCHC 33.6 g/dL (31.0-37.0); MCV 101.1 fL (80.0-100.0); Macrocytosis Slight; Mean Platelet Volume 7.9; Platelet Count 169 k/uL (150-450); RBC 4.96 m/uL (4.30-5.90); RDW 13.7 % (11.5-15.5); WBC 12.2 k/uL (3.8-10.6)
--- NOTE | 2021-07-31 02:17 | ED ---
Nausea/Vomiting/Diarrhea HPI - General Chief complaint: Nausea/Vomiting/Diarrhea Stated complaint: Nausea,Vomiting Time Seen by Provider: 07/30/21 23:17 Source: patient, EMS, RN notes reviewed Mode of arrival: EMS Limitations: no limitations - History of Present Illness Initial comments: Patient is a 41-year-old male that presents to the emergency department complaining of nausea and vomiting 1-2 episodes prior to arrival. Patient notes that he did not eat any suspicious tainted food. He notes he does not have a history of rate of nausea and vomiting. Patient was otherwise well- appearing no apparent distress. Patient notes that he is HIV positive. Patient denied any chest pain shortness breath headache diarrhea constipation fever fatigue chills. - Related Data Home Medications Medication Instructions Recorded Confirmed Bictegrav/Emtricit/Tenofov Ala 1 tab PO DAILY 08/31/20 02/23/21 [Biktarvy 50-200-25 mg Tablet] Escitalopram [Lexapro] 20 mg PO DAILY 08/31/20 02/23/21 Ergocalciferol (Vitamin D2) 1,250 mcg PO TH 10/08/20 02/23/21 [Vitamin D2 (50,000 Iu)] Meclizine [Antivert] 25 mg PO TID 02/15/21 02/23/21 Pantoprazole [Protonix] 40 mg PO DAILY 02/15/21 02/23/21 Previous Rx's Medication Instructions Recorded Ondansetron Odt [Zofran ODT] 4 mg PO Q8HR PRN #12 tab 05/11/19 Allergies Allergy/AdvReac Type Severity Reaction Status Date / Time No Known Allergies Allergy Verified 07/30/21 22:31 Review of Systems ROS Statement: Those systems with pertinent positive or pertinent negative responses have been documented in the HPI. ROS Other: All systems not noted in ROS Statement are negative. Past Medical History Past Medical History: GERD/Reflux Additional Past Medical History / Comment(s): nausea, HIV. HIATAL HERNIA, Last CD4 count 301 History of Any Multi-Drug Resistant Organisms: None Reported Past Surgical History: Cholecystectomy, Hernia Repair Additional Past Surgical History / Comment(s): Colonoscopy/EGD. UPPER TEETH REMOVED Past Anesthesia/Blood Transfusion Reactions: No Reported Reaction Past Psychological History: Anxiety, Depression Smoking Status: Current every day smoker Past Alcohol Use History: None Reported Past Drug Use History: Marijuana - Past Family History Father Family Medical History: Coronary Artery Disease (CAD), Hypertension, Myocardial Infarction ([place]) Mother History Unknown: Yes Family Medical History: Cancer Additional Family Medical History / Comment(s): LUNG CANCER General Exam Limitations: no limitations General appearance: alert, in no apparent distress Head exam: Present: atraumatic, normocephalic, normal inspection Eye exam: Present: normal appearance, PERRL, EOMI. Absent: scleral icterus, conjunctival injection, periorbital swelling ENT exam: Present: normal exam, mucous membranes moist Neck exam: Present: normal inspection Respiratory exam: Present: normal lung sounds bilaterally. Absent: respiratory distress, wheezes, rales, rhonchi, stridor Cardiovascular Exam: Present: regular rate, normal rhythm, normal heart sounds. Absent: systolic murmur, diastolic murmur, rubs, gallop, clicks GI/Abdominal exam: Present: soft, normal bowel sounds. Absent: distended, tenderness, guarding, rebound, rigid Extremities exam: Present: normal inspection, full ROM, normal capillary refill. Absent: tenderness, pedal edema, joint swelling, calf tenderness Neurological exam: Present: alert, oriented X3 Psychiatric exam: Present: normal affect, normal mood Skin exam: Present: warm, dry, intact, normal color. Absent: rash Course Vital Signs 07/30/21 07/31/21 22:28 01:47 Temperature 97.8 F Pulse Rate 114 H 97 Respiratory 20 20 Rate Blood Pressure 118/83 102/75 O2 Sat by Pulse 100 98 Oximetry Medical Decision Making - Medical Decision Making 41-year-old male complaining of nausea vomiting. Patient did receive 8 mg of Zofran and fluids on the EMS run over. Labs, 1 L normal saline ordered. Labs are unremarkable within normal limits. Patient was informed that results in his remote discharge home with Zofran starter pack. Case discussed with Dr. Flores - Lab Data Result diagrams: 07/30/21 23:59 07/30/21 23:59 Lab Results 07/30/21 07/30/21 07/30/21 Range/Units 22:33 23:59 23:59 WBC 12.2 H (3.8-10.6) k/uL RBC 4.96 (4.30-5.90) m/uL Hgb 16.9 (13.0-17.5) gm/dL Hct 50.2 (39.0-53.0) % MCV 101.1 H (80.0-100.0) fL MCH 34.0 (25.0-35.0) pg MCHC 33.6 (31.0-37.0) g/dL RDW 13.7 (11.5-15.5) % Plt Count 169 (150-450) k/uL MPV 7.9 Macrocytosis Slight Sodium 140 (137-145) mmol/L Potassium 4.4 (3.5-5.1) mmol/L Chloride 99 (98-107) mmol/L Carbon Dioxide 32 H (22-30) mmol/L Anion Gap 9 mmol/L BUN 19 (9-20) mg/dL Creatinine 1.09 (0.66-1.25) mg/dL Est GFR (CKD-EPI)AfAm >90 (>60 ml/min/1.73 sqM) Est GFR (CKD-EPI)NonAf 85 (>60 ml/min/1.73 sqM) Glucose 130 H (74-99) mg/dL Calcium 9.6 (8.4-10.2) mg/dL Total Bilirubin 0.3 (0.2-1.3) mg/dL AST 38 (17-59) U/L ALT 28 (4-49) U/L Alkaline Phosphatase 39 (38-126) U/L Total Protein 8.1 (6.3-8.2) g/dL Albumin 4.5 (3.5-5.0) g/dL Amylase 70 (30-110) U/L Lipase 58 (23-300) U/L Influenza Type A (PCR) Not Detected (Not Detectd) Influenza Type B (PCR) Not Detected (Not Detectd) RSV (PCR) Not Detected (Not Detectd) SARS-CoV-2 (PCR) Not Detected (Not Detectd) Disposition Clinical Impression: Dehydration, Nausea & vomiting Disposition: HOME SELF-CARE Condition: Stable Instructions (If sedation given, give patient instructions): Acute Nausea and Vomiting (ED) Additional Instructions: Please return to the Emergency Department if symptoms worsen or any other concerns. Take Zofran as prescribed. Follow-up with primary care in 1-2 days. Is patient prescribed a controlled substance at d/c from ED?: No Referrals: Hebert Caldwell DO [Primary Care Provider] - 1-2 days Time of Disposition: 02:17
[2021-07-31 02:57] LABS: Band Neutrophils % 24 %; Eosinophils # (M) 0.12 k/uL (0-0.7); Lymphocytes # (M) 0.85 k/uL (1.0-4.8); Metamyelocytes # (M) 0.12 k/uL (0); Metamyelocytes % 1 %; Monocytes # (M) 0.37 k/uL (0-1.0); Neutrophils % (M) 66 %; Nucleated Red Blood Cells 0 /100 WBC (0-0); Total Cells Counted 200
[2021-07-31] MEDS: ONDANSETRON 4 MG ODT STARTER PACK 2 TAB BTL PO STA (03:08)
[2021-07-31 03:16] VITALS: BP 109/74; PULSE 84
[2021-07-31 03:31] LABS: Anisocytosis (M) Present
[2021-07-31 03:32] LABS: Large Platelets Present
== END 2021-07-31 03:15 | disposition home or self-care (01) ==
LOC: EC 22:24
DX: E86.0 Dehydration (principal); R11.2 Nausea with vomiting, unspecified; Z20.822 Contact with and (suspected) exposure to COVID-19; K21.9 Gastro-esophageal reflux disease without esophagitis; B20 Human immunodeficiency virus [HIV] disease; F32.A Depression, unspecified; F41.9 Anxiety disorder, unspecified; F17.200 Nicotine dependence, unspecified, uncomplicated; F12.90 Cannabis use, unspecified, uncomplicated; Z79.899 Other long term (current) drug therapy
CPT/HCPCS: 36415; 80053; 82150; 83690; 85025; 87636; 99284; 96360; 96361; S0119

== ENCOUNTER 2021-10-15 09:54 | Emergency (ER) | payer OTHER ==
[2021-10-15 09:59] VITALS: BP 131/83; PULSE 103; RESP 16; TEMP 98.9
[2021-10-15] MEDS ORDERED: METOCLOPRAMIDE 5 MG/ML 2 ML VIAL IVP STA (10:15)
[2021-10-15] MEDS ORDERED: SODIUM CHLORIDE 0.9% 1,000 ML IV STA (10:15)
[2021-10-15] MEDS ORDERED: diphenhydrAMINE 50 MG/ML 1 ML VIAL IVP STA (10:15)
--- NOTE | 2021-10-15 10:32 | ED ---
General Adult HPI - General Chief complaint: Headache Stated complaint: Headache/Abnormal Stool Time Seen by Provider: 10/15/21 10:03 Source: patient Mode of arrival: ambulatory Limitations: no limitations - History of Present Illness Initial comments: This 52-year-old male with past medical history of alcohol use, HIV, Darrell fundoplication presents emergency department with headache 1 month, worsening over the last 2 days along with black tarry stools times one episode yesterday. Patient states his headache is heavy pressure and often feels like it is throbbing. He denies a history of headaches in his past. Patient states he has also noticed a little bit of episodic blurred vision on his headache seems worse. Patient states the headache is worse with bending forward. Patient states his headache is currently [address] that way for the last month. Patient denies any radiation of his headache. Patient denies any double or loss of vision. Patient denies any dizziness, lightheadedness or neck pain. Patient states yesterday when he had a bowel movement noticed he was black. Patient denies ever having this before. Patient states he called his doctor, Dr. Caldwell this morning to told him to come to the emergency department for labs and evaluation. Patient denies any fevers, chest pain, shortness of breath, abdominal pain, nausea, vomiting, weakness, hemoptysis. Patient states his last colonoscopy was in June 2021 which was clear. Patient states he was also seen by [facility] for hemoptysis in June which has since resolved, however he has not followed up with anybody for it. I did instruct patient to follow-up with his primary care provider or the specialist which [facility] provided. - Related Data Home Medications Medication Instructions Recorded Confirmed Bictegrav/Emtricit/Tenofov Ala 1 tab PO DAILY 08/31/20 10/15/21 [Biktarvy 50-200-25 mg Tablet] Ergocalciferol (Vitamin D2) 1,250 mcg PO 10/08/20 10/15/21 [Vitamin D2 (50,000 Iu)] Pantoprazole [Protonix] 40 mg PO HS 02/15/21 10/15/21 DULoxetine HCL [Cymbalta] 30 mg PO DAILY 10/15/21 10/15/21 DULoxetine HCL [Cymbalta] 60 mg PO DAILY 10/15/21 10/15/21 Omeprazole [PriLOSEC] 40 mg PO DAILY 10/15/21 10/15/21 Previous Rx's Medication Instructions Recorded Ondansetron Odt [Zofran ODT] 4 mg PO Q8HR PRN #12 tab 05/11/19 Amoxic-Pot Clav 875-125Mg 1 tab PO Q12HR #20 tab 10/15/21 [Augmentin 875-125] Allergies Allergy/AdvReac Type Severity Reaction Status Date / Time No Known Allergies Allergy Verified 10/15/21 10:47 Review of Systems ROS Statement: Those systems with pertinent positive or pertinent negative responses have been documented in the HPI. ROS Other: All systems not noted in ROS Statement are negative. Past Medical History Past Medical History: GERD/Reflux Additional Past Medical History / Comment(s): nausea, HIV. HIATAL HERNIA, Last CD4 count 301 History of Any Multi-Drug Resistant Organisms: None Reported Past Surgical History: Cholecystectomy, Hernia Repair Additional Past Surgical History / Comment(s): Colonoscopy/EGD. UPPER TEETH REMOVED, darrell Past Anesthesia/Blood Transfusion Reactions: No Reported Reaction Past Psychological History: Anxiety, Depression Smoking Status: Current every day smoker Past Alcohol Use History: None Reported Past Drug Use History: Marijuana - Past Family History Father Family Medical History: Coronary Artery Disease (CAD), Hypertension, Myocardial Infarction ([place]) Mother History Unknown: Yes Family Medical History: Cancer Additional Family Medical History / Comment(s): LUNG CANCER General Exam Limitations: no limitations General appearance: alert, in no apparent distress Head exam: Present: atraumatic, normocephalic, normal inspection (Patient with mild tenderness "pessure" over frontal and maxillary sinuses) Eye exam: Present: normal appearance, PERRL, EOMI. Absent: scleral icterus, conjunctival injection, periorbital swelling Pupils: Present: normal accommodation ENT exam: Present: normal exam, mucous membranes moist Neck exam: Present: normal inspection, full ROM. Absent: tenderness, meningismus, lymphadenopathy Respiratory exam: Present: normal lung sounds bilaterally. Absent: respiratory distress, wheezes, rales, rhonchi, stridor Cardiovascular Exam: Present: regular rate, normal rhythm, normal heart sounds. Absent: systolic murmur, diastolic murmur, rubs, gallop, clicks GI/Abdominal exam: Present: soft, normal bowel sounds. Absent: distended, tenderness, guarding, rebound, rigid Rectal exam: Present: normal inspection, normal rectal tone, heme (-) stool. Absent: hemorrhoids, mass, tenderness, prostate tenderness Extremities exam: Present: full ROM, normal capillary refill. Absent: tenderness, pedal edema, joint swelling Back exam: Absent: tenderness, CVA tenderness (R), CVA tenderness (L), paraspin al tenderness, vertebral tenderness Neurological exam: Present: alert, oriented X3, CN II-XII intact, normal gait Psychiatric exam: Present: normal affect, normal mood Skin exam: Present: warm, dry, intact, normal color. Absent: rash Course Vital Signs 10/15/21 09:55 Temperature 98.9 F Pulse Rate 103 H Respiratory 16 Rate Blood Pressure 131/83 O2 Sat by Pulse 98 Oximetry - Reevaluation(s) Reevaluation #1: 10/15/21 11:18 On examination, patient states he still does have a headache about 5/5 which is experienced for the last month. 10/15/21 11:41 Under reexamination, patient states his headache is still there. I did instruct patient that I would give him Toradol since his CT scan was without any intracranial bleeding. 10/15/21 12:04 On reexamination, patient states his headache has significantly improved, h owever it still is there and is 4/10 Medical Decision Making - Medical Decision Making This 41-year-old male presents emergency department with headache 1 month along with one episode of dark black tarry stool yesterday. CT impression without any acute intracranial abnormality or gross space-occupying lesion. Air-fluid level is seen within the sphenoid sinus suggestive of acute sinusitis. Patient was treated with Augmentin 10 days. Patient was instructed to follow-up with for his episode of dark tarry stool in due to him scoping the patient before. Patient was instructed to follow up with neurology if headache continues. I did instruct patient to follow-up with his primary care provider and to [facility] 6 [facility] ago for hemoptysis, however patient states his hemoptysis has resolved and I advised him to still follow up. After fluids, Toradol, Decadron and Reglan, patient states his headache has significantly improved 3/10. Strict return precautions were discussed with patient. Patient verbally agreed to plan. Patient sent home in stable condition. Case discussed with my attending, . - Lab Data Result diagrams: 10/15/21 10:23 10/15/21 11:05 Lab Results 10/15/21 10/15/21 10/15/21 Range/Units 10:23 10:23 10:23 WBC 12.2 H (3.8-10.6) k/uL RBC 4.55 (4.30-5.90) m/uL Hgb 15.8 (13.0-17.5) gm/dL Hct 46.2 (39.0-53.0) % MCV 101.5 H (80.0-100.0) fL MCH 34.7 (25.0-35.0) pg MCHC 34.2 (31.0-37.0) g/dL RDW 13.6 (11.5-15.5) % Plt Count 210 (150-450) k/uL MPV 7.8 Neutrophils % 69 % Lymphocytes % 19 % Monocytes % 4 % Eosinophils % 5 % Basophils % 1 % Neutrophils # 8.4 H (1.3-7.7) k/uL Lymphocytes # 2.3 (1.0-4.8) k/uL Monocytes # 0.5 (0-1.0) k/uL Eosinophils # 0.6 (0-0.7) k/uL Basophils # 0.2 (0-0.2) k/uL Macrocytosis Slight PT 10.6 (9.0-12.0) sec INR 1.0 (<1.2) APTT 24.8 (22.0-30.0) sec Sodium (137-145) mmol/L Potassium (3.5-5.1) mmol/L Chloride (98-107) mmol/L Carbon Dioxide (22-30) mmol/L Anion Gap mmol/L BUN (9-20) mg/dL Creatinine (0.66-1.25) mg/dL Est GFR (CKD-EPI)AfAm (>60 ml/min/1.73 sqM) Est GFR (CKD-EPI)NonAf (>60 ml/min/1.73 sqM) Glucose (74-99) mg/dL Plasma Lactic Acid Melvin (0.7-2.0) mmol/L Calcium (8.4-10.2) mg/dL Total Bilirubin (0.2-1.3) mg/dL AST (17-59) U/L ALT (4-49) U/L Alkaline Phosphatase (38-126) U/L Total Protein (6.3-8.2) g/dL Albumin (3.5-5.0) g/dL Lipase (23-300) U/L Urine Color Yellow Urine Appearance Clear (Clear) Urine pH 7.0 (5.0-8.0) Ur Specific [place] 1.023 (1.001-1.035) Urine Protein Negative (Negative) Urine Glucose (UA) Negative (Negative) Urine Ketones Negative (Negative) Urine Blood Negative (Negative) Urine Nitrite Negative (Negative) Urine Bilirubin Negative (Negative) Urine Urobilinogen <2.0 (<2.0) mg/dL Ur Leukocyte Esterase Negative (Negative) Stool Occult Blood (Negative) 10/15/21 10/15/21 10/15/21 Range/Units 10:23 10:23 11:05 WBC (3.8-10.6) k/uL RBC (4.30-5.90) m/uL Hgb (13.0-17.5) gm/dL Hct (39.0-53.0) % MCV (80.0-100.0) fL MCH (25.0-35.0) pg MCHC (31.0-37.0) g/dL RDW (11.5-15.5) % Plt Count (150-450) k/uL MPV Neutrophils % % Lymphocytes % % Monocytes % % Eosinophils % % Basophils % % Neutrophils # (1.3-7.7) k/uL Lymphocytes # (1.0-4.8) k/uL Monocytes # (0-1.0) k/uL Eosinophils # (0-0.7) k/uL Basophils # (0-0.2) k/uL Macrocytosis PT (9.0-12.0) sec INR (<1.2) APTT (22.0-30.0) sec Sodium 138 (137-145) mmol/L Potassium 4.4 (3.5-5.1) mmol/L Chloride 103 (98-107) mmol/L Carbon Dioxide 31 H (22-30) mmol/L Anion Gap 4 mmol/L BUN 16 (9-20) mg/dL Creatinine 0.82 (0.66-1.25) mg/dL Est GFR (CKD-EPI)AfAm >90 (>60 ml/min/1.73 sqM) Est GFR (CKD-EPI)NonAf >90 (>60 ml/min/1.73 sqM) Glucose 85 (74-99) mg/dL Plasma Lactic Acid [place]vin 1.5 (0.7-2.0) mmol/L Calcium 8.9 (8.4-10.2) mg/dL Total Bilirubin 0.5 (0.2-1.3) mg/dL AST 31 (17-59) U/L ALT 27 (4-49) U/L Alkaline Phosphatase 37 L (38-126) U/L Total Protein 7.8 (6.3-8.2) g/dL Albumin 4.3 (3.5-5.0) g/dL Lipase 53 (23-300) U/L Urine Color Urine Appearance (Clear) Urine pH (5.0-8.0) Ur Specific [place] (1.001-1.035) Urine Protein (Negative) Urine Glucose (UA) (Negative) Urine Ketones (Negative) Urine Blood (Negative) Urine Nitrite (Negative) Urine Bilirubin (Negative) Urine Urobilinogen (<2.0) mg/dL Ur Leukocyte Esterase (Negative) Stool Occult Blood Negative (Negative) - Radiology Data Radiology results: report reviewed, image reviewed Disposition Clinical Impression: Sinusitis, Headache Disposition: HOME SELF-CARE Condition: Stable Instructions (If sedation given, give patient instructions): Sinusitis (ED) Additional Instructions: Please return to the emergency department with any new, worsening, or concerning symptoms. Take antibiotic as directed x10 days. Follow-up with for your dark, tarry stool. Follow-up with neurology if headache persists. Follow- up with your primary care next 1-2 days. Prescriptions: Amoxic-Pot Clav 875-125Mg [Augmentin 875-125] 1 tab PO Q12HR #20 tab Is patient prescribed a controlled substance at d/c from ED?: No Referrals: Hebert Caldwell DO [Primary Care Provider] - 1-2 days Ameya Tobar MD [STAFF PHYSICIAN] - 1-2 days Maximilian Sawyer MD [STAFF PHYSICIAN] - 1-2 days Time of Disposition: 12:34
[2021-10-15 10:37] LABS: Basophils # (A) 0.2 k/uL (0-0.2); Basophils % (A) 1 %; Eosinophils # (A) 0.6 k/uL (0-0.7); Eosinophils % (A) 5 %; HCT 46.2 % (39.0-53.0); HGB 15.8 gm/dL (13.0-17.5); Lymphocytes # (A) 2.3 k/uL (1.0-4.8); Lymphocytes % (A) 19 %; MCH 34.7 pg (25.0-35.0); MCHC 34.2 g/dL (31.0-37.0); MCV 101.5 fL (80.0-100.0); Macrocytosis Slight; Mean Platelet Volume 7.8; Monocytes # (A) 0.5 k/uL (0-1.0); Monocytes % (A) 4 %; Neutrophils # (A) 8.4 k/uL (1.3-7.7); Neutrophils % (A) 69 %; Platelet Count 210 k/uL (150-450); RBC 4.55 m/uL (4.30-5.90); RDW 13.6 % (11.5-15.5); WBC 12.2 k/uL (3.8-10.6)
[2021-10-15 10:45] LABS: Appearance,Urine Clear (Clear); Bilirubin,Urine Negative (Negative); Blood,Urine Negative (Negative); Color,Urine Yellow; Glucose,Urine (UA) Negative (Negative); Ketones,Urine Negative (Negative); Leukocyte Esterase,Urine Negative (Negative); Nitrite,Urine Negative (Negative); Protein,Urine Negative (Negative); Specific Gravity,Urine 1.023 (1.001-1.035); Urobilinogen,Urine <2.0 mg/dL (<2.0)
[2021-10-15 10:47] LABS: Partial Thromboplastin Time 24.8 sec (22.0-30.0); Prothrombin Time 10.6 sec (9.0-12.0)
--- NOTE | 2021-10-15 11:29 | CT ---
EXAMINATION TYPE: CT brain wo con DATE OF EXAM: 10/15/2021 COMPARISON: None available HISTORY: Headache x [address] DLP: 1114.4 mGycm Automated exposure control for dose reduction was used. TECHNIQUE: CT scan of the brain is performed without IV contrast administration. FINDINGS: Unremarkable morphology of the cerebral hemispheres, cerebellum and brainstem. No acute intracranial hemorrhage. No gross acute cortical infarct. No midline shift, herniation or ventriculomegaly. Unremarkable lara-white matter differentiation, basal cisterns, sella and CP angles. No gross space-o ccupying lesion, vasogenic edema or mass effect. Unremarkable orbits. Enlarged nasopharyngeal soft tissue versus nasopharyngeal fluid. Please correlat e clinically. Air-fluid level is seen within the sphenoid sinus suggestive of acute sinusitis. Clear mastoid air cells. Unremarkable calvarial bones. IMPRESSION: No acute intracranial abnormality or gross space-occupying lesion by this nonenhanced CT scan. Incide ntal findings as described above. If headaches persist, further MRI assessment can be considered.
[2021-10-15] MEDS ORDERED: KETOROLAC 15 MG/ML 1 ML VIAL IVP STA (11:41)
[2021-10-15 12:03] LABS: ALT 27 U/L (4-49); AST 31 U/L (17-59); African American GFR (CKD) >90 (>60 ml/min/1.73 sqM); Albumin 4.3 g/dL (3.5-5.0); Alkaline Phosphatase 37 U/L (38-126); Anion Gap 4 mmol/L; Blood Urea Nitrogen 16 mg/dL (9-20); Calcium 8.9 mg/dL (8.4-10.2); Carbon Dioxide 31 mmol/L (22-30); Chloride 103 mmol/L (98-107); Glucose 85 mg/dL (74-99); Lipase 53 U/L (23-300); Non-African American GFR(CKD) >90 (>60 ml/min/1.73 sqM); Potassium 4.4 mmol/L (3.5-5.1); Sodium 138 mmol/L (137-145); Total Bilirubin 0.5 mg/dL (0.2-1.3); Total Protein 7.8 g/dL (6.3-8.2)
[2021-10-15] MEDS ORDERED: AMOXIC-POT CLAV 875-125MG 1 EACH TAB PO STA (12:29)
[2021-10-15] MEDS ORDERED: DEXAMETHASONE SOD PHOSPHATE 10 MG/ML 1 ML VIAL IVP STA (12:34)
== END 2021-10-15 13:05 | disposition home or self-care (01) ==
LOC: EC 09:54
DX: J32.9 Chronic sinusitis, unspecified (principal); F17.200 Nicotine dependence, unspecified, uncomplicated; B20 Human immunodeficiency virus [HIV] disease; K21.9 Gastro-esophageal reflux disease without esophagitis; Z79.899 Other long term (current) drug therapy
CPT/HCPCS: 36415; 80053; 83605; 83690; 85025; 85610; 85730; 82272; 81003; 70450; 99284; 96374; 96375; 96361; J1200; J1100; J2765; J1885

== ENCOUNTER 2022-01-29 11:26 | Observation (INO) | payer OTHER ==
--- NOTE | 2022-01-29 12:10 | ED ---
General Adult HPI - General Chief complaint: Chest Pain Stated complaint: Chest pain Time Seen by Provider: 01/29/22 11:37 Source: patient Mode of arrival: ambulatory Limitations: no limitations - History of Present Illness Initial comments: Dictation was produced using [employer] dictation software. please excuse any grammatical, word or spelling errors. Chief Complaint: 41-year-old male presents to emergency department for chest pain History of Present Illness: Patient is a 41-year-old female presents to the emergency department for chest pain. Patient's history of HIV. She denies any cardiac history however reports strong family history of heart attacks. Patient states that his episode of chest pain today began approximately 30 minutes to 1 hour prior to arrival. States it is a sharp sensation. Nonradiating but associated with diaphoresis. He also has associated nausea. Patient states that he is short of breath is worse when he takes a deep breath. Patient states that he does have some mild symptoms at the bedside. Patient reports he is compliant with his HIV medications. The ROS documented in this emergency department record has been reviewed and confirmed by me. Those systems with pertinent positive or negative responses have been documented in the HPI. All other systems are other negative and/or noncontributory. PHYSICAL EXAM: General Impression: Alert and oriented x3, not in acute distress HEENT: Normocephalic atraumatic, extra-ocular movements intact, pupils equal and reactive to light bilaterally, mucous membranes moist. Cardiovascular: Heart regular rate and rhythm Chest: Able to complete full sentences, no retractions, no tachypnea Abdomen: abdomen soft, non-tender, non-distended, no organomegaly Musculoskeletal: Pulses present and equal in all extremities, no peripheral edema Motor: no focal deficits noted Neurological: CN II-XII grossly intact, no focal motor or sensory deficits noted Skin: Intact with no visualized rashes Psych: Normal affect and mood ED course: 41-year-old Well-appearing male presents to the emergency department for atypical chest pain with typical features. Patient does have symptoms to suggest ACS. He does report strong family history. As upon arrival are within acceptable limits. EKG does not show any signs of ischemia or infarction. EKG interpretation: Ventricular rate 80, sinus rhythm,. Interval 1:30, care is 83, QTc 416. No CA prolongation, no QTC prolongation, no ST or T-wave changes noted. Overall, this EKG is unremarkable Laboratory evaluation obtained. CBC, coag panel is unremarkable. D-dimer is negative. Metabolic panel is negative. Troponin is negative. Chest x-ray shows stable exam. Patient reevaluated at the bedside at 6:24 PM found to be stable medical condition. Patient is agreeable to observation admission is given aspirin. Patient has high-risk features in chronic inflammatory disease of HIV and strong family history of heart attacks. - Related Data Home Medications Medication Instructions Recorded Confirmed Bictegrav/Emtricit/Tenofov Ala 1 tab PO DAILY@1400 08/31/20 01/29/22 [Biktarvy 50-200-25 mg Tablet] Ergocalciferol (Vitamin D2) 1,250 mcg PO TH 10/08/20 01/29/22 [Vitamin D2 (50,000 Iu)] DULoxetine HCL [Cymbalta] 120 mg PO DAILY 10/15/21 01/29/22 Omeprazole [PriLOSEC] 40 mg PO DAILY 10/15/21 01/29/22 buPROPion XL [Wellbutrin XL] 150 mg PO DAILY 01/29/22 01/29/22 Previous Rx's Medication Instructions Recorded Ondansetron Odt [Zofran ODT] 4 mg PO Q8HR PRN #12 tab 05/11/19 Allergies Allergy/AdvReac Type Severity Reaction Status Date / Time No Known Allergies Allergy Verified 01/29/22 13:11 Review of Systems ROS Statement: Those systems with pertinent positive or pertinent negative responses have been documented in the HPI. ROS Other: All systems not noted in ROS Statement are negative. Past Medical History Past Medical History: GERD/Reflux Additional Past Medical History / Comment(s): nausea, HIV. HIATAL HERNIA, Last CD4 count 301 History of Any Multi-Drug Resistant Organisms: None Reported Past Surgical History: Cholecystectomy, Hernia Repair Additional Past Surgical History / Comment(s): Colonoscopy/EGD. UPPER TEETH REMOVED, darrell Past Anesthesia/Blood Transfusion Reactions: No Reported Reaction Past Psychological History: Anxiety, Depression Smoking Status: Current every day smoker Past Alcohol Use History: None Reported Past Drug Use History: Marijuana - Past Family History Father Family Medical History: Coronary Artery Disease (CAD), Hypertension, Myocardial Infarction ([place]) Mother History Unknown: Yes Family Medical History: Cancer Additional Family Medical History / Comment(s): LUNG CANCER General Exam Limitations: no limitations Course Vital Signs 01/29/22 01/29/22 01/29/22 11:31 12:33 13:00 Temperature 97.8 F Pulse Rate 97 77 83 Respiratory 18 18 18 Rate Blood Pressure 131/87 124/85 O2 Sat by Pulse 100 97 98 Oximetry 01/29/22 14:00 Temperature Pulse Rate 75 Respiratory 18 Rate Blood Pressure 130/83 O2 Sat by Pulse 100 Oximetry Medical Decision Making - Lab Data Result diagrams: 01/29/22 12:10 01/29/22 14:08 Lab Results 01/29/22 01/29/22 01/29/22 Range/Units 12:10 12:10 14:08 WBC 8.4 (3.8-10.6) k/uL RBC 4.46 (4.30-5.90) m/uL Hgb 15.2 (13.0-17.5) gm/dL Hct 44.8 (39.0-53.0) % MCV 100.5 H (80.0-100.0) fL MCH 34.0 (25.0-35.0) pg MCHC 33.9 (31.0-37.0) g/dL RDW 13.8 (11.5-15.5) % Plt Count 245 (150-450) k/uL MPV 8.1 Neutrophils % 56 % Lymphocytes % 33 % Monocytes % 5 % Eosinophils % 3 % Basophils % 0 % Neutrophils # 4.7 (1.3-7.7) k/uL Lymphocytes # 2.8 (1.0-4.8) k/uL Monocytes # 0.4 (0-1.0) k/uL Eosinophils # 0.3 (0-0.7) k/uL Basophils # 0.0 (0-0.2) k/uL Macrocytosis Slight PT 10.2 (9.0-12.0) sec INR 0.9 (<1.2) APTT 25.0 (22.0-30.0) sec D-Dimer 0.23 (<0.60) mg/L FEU Sodium (137-145) mmol/L Potassium (3.5-5.1) mmol/L Chloride (98-107) mmol/L Carbon Dioxide (22-30) mmol/L Anion Gap mmol/L BUN (9-20) mg/dL Creatinine (0.66-1.25) mg/dL Est GFR (CKD-EPI)AfAm (>60 ml/min/1.73 sqM) Est GFR (CKD-EPI)NonAf (>60 ml/min/1.73 sqM) Glucose (74-99) mg/dL Calcium (8.4-10.2) mg/dL Magnesium (1.6-2.3) mg/dL Total Bilirubin (0.2-1.3) mg/dL AST (17-59) U/L ALT (4-49) U/L Alkaline Phosphatase (38-126) U/L Troponin I <0.012 (0.000-0.034) ng/mL Total Protein (6.3-8.2) g/dL Albumin (3.5-5.0) g/dL Lipase (23-300) U/L 01/29/22 Range/Units 14:08 WBC (3.8-10.6) k/uL RBC (4.30-5.90) m/uL Hgb (13.0-17.5) gm/dL Hct (39.0-53.0) % MCV (80.0-100.0) fL MCH (25.0-35.0) pg MCHC (31.0-37.0) g/dL RDW (11.5-15.5) % Plt Count (150-450) k/uL MPV Neutrophils % % Lymphocytes % % Monocytes % % Eosinophils % % Basophils % % Neutrophils # (1.3-7.7) k/uL Lymphocytes # (1.0-4.8) k/uL Monocytes # (0-1.0) k/uL Eosinophils # (0-0.7) k/uL Basophils # (0-0.2) k/uL Macrocytosis PT (9.0-12.0) sec INR (<1.2) APTT (22.0-30.0) sec D-Dimer (<0.60) mg/L FEU Sodium 140 (137-145) mmol/L Potassium 3.7 (3.5-5.1) mmol/L Chloride 104 (98-107) mmol/L Carbon Dioxide 29 (22-30) mmol/L Anion Gap 7 mmol/L BUN 17 (9-20) mg/dL Creatinine 0.87 (0.66-1.25) mg/dL Est GFR (CKD-EPI)AfAm >90 (>60 ml/min/1.73 sqM) Est GFR (CKD-EPI)NonAf >90 (>60 ml/min/1.73 sqM) Glucose 98 (74-99) mg/dL Calcium 9.2 (8.4-10.2) mg/dL Magnesium 2.1 (1.6-2.3) mg/dL Total Bilirubin 0.4 (0.2-1.3) mg/dL AST 30 (17-59) U/L ALT 24 (4-49) U/L Alkaline Phosphatase 41 (38-126) U/L Troponin I (0.000-0.034) ng/mL Total Protein 7.7 (6.3-8.2) g/dL Albumin 4.6 (3.5-5.0) g/dL Lipase 76 (23-300) U/L Disposition Clinical Impression: Chest pain Disposition: ADMITTED IP TO THIS [facility] Condition: Fair Referrals: Hebert Caldwell DO [Primary Care Provider] - 1-2 days Decision Time: 14:49
[2022-01-29 12:40] LABS: Basophils % (A) 0 %; Eosinophils # (A) 0.3 k/uL (0-0.7); Eosinophils % (A) 3 %; HCT 44.8 % (39.0-53.0); HGB 15.2 gm/dL (13.0-17.5); Lymphocytes # (A) 2.8 k/uL (1.0-4.8); Lymphocytes % (A) 33 %; MCHC 33.9 g/dL (31.0-37.0); MCV 100.5 fL (80.0-100.0); Macrocytosis Slight; Mean Platelet Volume 8.1; Monocytes # (A) 0.4 k/uL (0-1.0); Monocytes % (A) 5 %; Neutrophils # (A) 4.7 k/uL (1.3-7.7); Neutrophils % (A) 56 %; Platelet Count 245 k/uL (150-450); RBC 4.46 m/uL (4.30-5.90); RDW 13.8 % (11.5-15.5); WBC 8.4 k/uL (3.8-10.6)
[2022-01-29 12:52] LABS: INR 0.9 (<1.2); Prothrombin Time 10.2 sec (9.0-12.0)
--- NOTE | 2022-01-29 12:55 | XR ---
EXAMINATION TYPE: XR chest 2V DATE OF EXAM: 01/29/2022 COMPARISON: Chest x-ray 02/15/2021 HISTORY: Chest pain and shortness of breath TECHNIQUE: Frontal and lateral views of the chest are obtained. FINDINGS: There is no focal air space opacity, pleural effusion, or pneumothorax seen. The cardiac silhouette size is within normal limits. The osseous structures are intact. There are overlying [place] ds. IMPRESSION: Stable exam. No acute abnormalities evident.
[2022-01-29 14:20] LABS: ALT 24 U/L (4-49); AST 30 U/L (17-59); African American GFR (CKD) >90 (>60 ml/min/1.73 sqM); Albumin 4.6 g/dL (3.5-5.0); Alkaline Phosphatase 41 U/L (38-126); Anion Gap 7 mmol/L; Blood Urea Nitrogen 17 mg/dL (9-20); Calcium 9.2 mg/dL (8.4-10.2); Carbon Dioxide 29 mmol/L (22-30); Chloride 104 mmol/L (98-107); Glucose 98 mg/dL (74-99); Lipase 76 U/L (23-300); Magnesium 2.1 mg/dL (1.6-2.3); Non-African American GFR(CKD) >90 (>60 ml/min/1.73 sqM); Potassium 3.7 mmol/L (3.5-5.1); Sodium 140 mmol/L (137-145); Total Bilirubin 0.4 mg/dL (0.2-1.3); Total Protein 7.7 g/dL (6.3-8.2)
[2022-01-29] MEDS ORDERED: ASPIRIN 81 MG PO STA (14:46)
[2022-01-29] MEDS ORDERED: NITROGLYCERIN SL TABS 0.4 MG TAB SUBLINGUAL PRN (14:46)
[2022-01-29 16:18] LABS: Amorphous Sediment,Urine Few /hpf; Appearance,Urine Turbid (Clear); Bilirubin,Urine Negative (Negative); Blood,Urine Negative (Negative); Color,Urine Yellow; Glucose,Urine (UA) Negative (Negative); Ketones,Urine Negative (Negative); Leukocyte Esterase,Urine Negative (Negative); Mucus,Urine Occasional /hpf; Nitrite,Urine Negative (Negative); PH, Urine 7.5 (5.0-8.0); Protein,Urine Trace (Negative); Specific Gravity,Urine 1.019 (1.001-1.035); Urobilinogen,Urine <2.0 mg/dL (<2.0); WBC,Urine 1 /hpf (0-5)
[2022-01-29] MEDS ORDERED: ONDANSETRON ODT 4 MG TAB PO PRN (19:33)
[2022-01-30 07:33] VITALS: BP 106/64; PULSE 75; RESP 18; TEMP 97.6
[2022-01-30] MEDS ORDERED: PANTOPRAZOLE 40 MG TABLET PO SCH (09:00)
[2022-01-30] MEDS ORDERED: ASPIRIN 325 MG TAB PO SCH (09:00)
[2022-01-30] MEDS ORDERED: DULoxetine HCL 60 MG CAPSULE.DR PO SCH (09:00)
[2022-01-30] MEDS ORDERED: buPROPion XL 150 MG TAB.ER.24H PO SCH (09:00)
[2022-01-30] MEDS ORDERED: HEPARIN SODIUM,PORCINE/PF 5,000 UNIT/0.5 ML SYRINGE SQ SCH (09:00)
[2022-01-30 13:06] LABS: Chol/HDL Ratio 4.37 Ratio; LDL Cholesterol,Calculated 158.6 mg/dL (0.0-131.0); VLDL Calculation 18.84 mg/dL (5.00-40.00)
--- NOTE | 2022-01-30 13:40 | P.HPIM ---
History of Present Illness Please consider this note as combined in [place] and discharge summary This is a pleasant 41 years old male with past medical history of GERD/Reflux, HIV, anxiety and depression, nicotine dependence, hiatal hernia Patient presents because of chest pain which was in the middle but not always completely resolved. Also patient denies any other symptoms. No dyspnea or coughing. No headache or weakness or numbness. No change in urine or bowel habits. No fever. Dr. Gonzalez came and evaluated the patient and cleared him for discharge to follow-up in the office in one week. Patient informed and he agrees Patient also he says he smokes cigarettes couldn't without specific indication, he was counseled and he agrees to quit but he denies nicotine patch. We will or illicit drugs. Vitals are stable Labs including CBC, BMP, INR, liver enzymes are negative. Troponin 3 are negative. Urine analysis is negative EKG showing normal sinus rhythm at 80, with no significant ST-T changes Chest x-ray no acute process. In the emergency room patient was started on aspirin 324 g. Review of Systems CONSTITUTIONAL: No fever, no malaise, no fatigue. HEENT: No recent visual problems or hearing problems. Denied any sore throat. CARDIOVASCULAR: No orthopnea, PND, no palpitations, no syncope. PULMONARY: No shortness of breath, no cough, no hemoptysis. GASTROINTESTINAL: No diarrhea, no nausea, no vomiting, no abdominal pain. Normoactive bowel sounds. NEUROLOGICAL: No headaches, no weakness, no numbness. HEMATOLOGICAL: Denies any bleeding or petechiae. GENITOURINARY: Denies any burning micturition, frequency, or urgency. MUSCULOSKELETAL/RHEUMATOLOGICAL: Denies any joint pain, swelling, or any muscle pain. ENDOCRINE: Denies any polyuria or polydipsia. Past Medical History Past Medical History: GERD/Reflux Additional Past Medical History / Comment(s): nausea, HIV. HIATAL HERNIA, Last CD4 count 301 History of Any Multi-Drug Resistant Organisms: None Reported Past Surgical History: Cholecystectomy, Hernia Repair Additional Past Surgical History / Comment(s): Colonoscopy/EGD. UPPER TEETH REMOVED, darrell Past Anesthesia/Blood Transfusion Reactions: No Reported Reaction Past Psychological History: Anxiety, Depression Smoking Status: Current every day smoker Past Alcohol Use History: None Reported Additional Past Alcohol Use History / Comment(s): STARTED SMOKING AT AGE 17 smoked 1 1/2 ppd STATES TRYING TO QUIT HAS COUNT DOWN TO 10-12 CIG PER DAY , smokes Marijuana daily Past Drug Use History: Marijuana Additional Drug Use History / Comment(s): -INSTRUCTED TO REFRAIN FROM USE FOR AT LEAST 24 HOURS PRIOR TO PROCEDURE - Past Family History Father Family Medical History: Coronary Artery Disease (CAD), Hypertension, Myocardial Infarction ([place]) Mother History Unknown: Yes Family Medical History: Cancer Additional Family Medical History / Comment(s): LUNG CANCER Medications and Allergies Home Medications Medication Instructions Recorded Confirmed Type Ondansetron Odt [Zofran ODT] 4 mg PO Q8HR PRN #12 tab 05/11/19 01/29/22 Rx Bictegrav/Emtricit/Tenofov Ala 1 tab PO DAILY@1400 08/31/20 01/29/22 History [Biktarvy 50-200-25 mg Tablet] Ergocalciferol (Vitamin D2) 1,250 mcg PO TH 10/08/20 01/29/22 History [Vitamin D2 (50,000 Iu)] DULoxetine HCL [Cymbalta] 120 mg PO DAILY 10/15/21 01/29/22 History Omeprazole [PriLOSEC] 40 mg PO DAILY 10/15/21 01/29/22 History buPROPion XL [Wellbutrin XL] 150 mg PO DAILY 01/29/22 01/29/22 History Aspirin 81 mg PO DAILY 10 Days #10 tab 01/30/22 Rx Nitroglycerin Sl Tabs [Nitrostat] 0.4 mg SUBLINGUAL Q5M PRN #10 tab 01/30/22 Rx Allergies Allergy/AdvReac Type Severity Reaction Status Date / Time No Known Allergies Allergy Verified 01/29/22 13:11 Physical Exam Vitals: Vital Signs Temp Pulse Pulse Resp BP BP Pulse Ox 01/30/22 07:00 97.6 F 75 18 106/64 97 01/30/22 02:22 97.4 F L 63 16 113/69 95 01/29/22 19:10 98.2 F 85 17 124/78 97 01/29/22 16:18 97.5 F L 84 18 135/89 100 01/29/22 16:02 98 16 105/65 99 01/29/22 14:00 75 18 130/83 100 01/29/22 13:00 83 18 124/85 98 01/29/22 12:33 77 18 97 01/29/22 11:31 97.8 F 97 18 131/87 100 Intake and Output 01/29/22 01/30/22 01/30/22 22:59 06:59 14:59 Intake Total 240 Output Total 0 Balance 240 0 Intake: Oral 240 Output: Emesis 0 Other: # Voids 1 0 0 Weight 77.111 kg GENERAL: The patient is alert and oriented x3, not in any acute distress. Well developed, well nourished. HEENT: Pupils are round and equally reacting to light. EOMI. No scleral icterus. No conjunctival pallor. Normocephalic, atraumatic. No pharyngeal erythema. No thyromegaly. CARDIOVASCULAR: S1 and S2 present. No murmurs, rubs, or gallops. PULMONARY: Chest is clear to auscultation, no wheezing or crackles. ABDOMEN: Soft, nontender, nondistended, normoactive bowel sounds. No palpable organomegaly. MUSCULOSKELETAL: No joint swelling or deformity. EXTREMITIES: No cyanosis, clubbing, or pedal edema. NEUROLOGICAL: Gross neurological examination did not reveal any focal deficits. SKIN: No rashes. No petechiae Results CBC & Chem 7: 01/29/22 12:10 01/29/22 14:08 Labs: Abnormal Lab Results - Last 24 Hours (Table) 01/29/22 01/29/22 Range/Units 12:10 14:42 MCV 100.5 H (80.0-100.0) fL Urine Protein Trace H (Negative) Amorphous Sediment Few H (None) /hpf Urine Mucus Occasional H (None) /hpf Thrombosis Risk Factor Assmnt - Choose All That Apply Any of the Below Risk Factors Present?: No Other Risk Factors: No Other congenital or acquired thrombophilia - If yes, enter type in comment: No Thrombosis Risk Factor Assessment Level: Very Low Risk Assessment and Plan Assessment: Chest pain, rule out resolved. Negative d-dimer. Cardiology cleared him for discharge Nicotine dependence History of GERD History of HIV History of anxiety and depression History of hiatal hernia Plan: This is a pleasant 41 years old male who presents this chest pain.. Patient has been evaluated by trim attacher who cleared him for discharge Patient will be discharged on 10 days of aspirin, risk of bleeding are spent for him extensively and he verbalized understanding and acceptance. Patient was instructed to follow up with his trim attacher Dr. Gonzalez in 1 week after discharge and he agrees Patient also was instructed to follow up with his PCP Dr. Patino in one week and he agrees Patient is stable for discharge and guarded prognosis
--- NOTE | 2022-01-30 16:43 | P.CRDCN ---
History of Present Illness Consult date: 01/30/22 History of present illness: This is a 41-year-old gentleman with history of anxiety had hernia and a HIV, is admitted to the hospital with left-sided chest pain. Patient apparently had some issues with the lungs on the left side. He has been having this pain for the last 6 months. However, it's has been progressively getting worse. Patient does have some tenderness on the left side and pain somewhat increases with deep breathing. It also is aggravated with activities. Because of that patient came to the emergency room. His EKG did not reveal any acute changes. His cardiac enzymes are negative. His lungs are clear. Heart is regular at this point patient is interested in going home and having outpatient evaluation with stress test. Increase activity and if patient's remains stable. Could be discharged home. Please schedule for outpatient stress test Review of Systems As per the chart Past Medical History Past Medical History: GERD/Reflux Additional Past Medical History / Comment(s): nausea, HIV. HIATAL HERNIA, Last CD4 count 301 History of Any Multi-Drug Resistant Organisms: None Reported Past Surgical History: Cholecystectomy, Hernia Repair Additional Past Surgical History / Comment(s): Colonoscopy/EGD. UPPER TEETH REMOVED, darrell Past Anesthesia/Blood Transfusion Reactions: No Reported Reaction Past Psychological History: Anxiety, Depression Smoking Status: Current every day smoker Past Alcohol Use History: None Reported Additional Past Alcohol Use History / Comment(s): STARTED SMOKING AT AGE 17 smoked 1 1/2 ppd STATES TRYING TO QUIT HAS COUNT DOWN TO 10-12 CIG PER DAY , smokes Marijuana daily Past Drug Use History: Marijuana Additional Drug Use History / Comment(s): -INSTRUCTED TO REFRAIN FROM USE FOR AT LEAST 24 HOURS PRIOR TO PROCEDURE - Past Family History Father Family Medical History: Coronary Artery Disease (CAD), Hypertension, Myocardial Infarction ([place]) Mother History Unknown: Yes Family Medical History: Cancer Additional Family Medical History / Comment(s): LUNG CANCER Medications and Allergies Home Medications Medication Instructions Recorded Confirmed Type Ondansetron Odt [Zofran ODT] 4 mg PO Q8HR PRN #12 tab 05/11/19 01/29/22 Rx Bictegrav/Emtricit/Tenofov Ala 1 tab PO DAILY@1400 08/31/20 01/29/22 History [Biktarvy 50-200-25 mg Tablet] Ergocalciferol (Vitamin D2) 1,250 mcg PO TH 10/08/20 01/29/22 History [Vitamin D2 (50,000 Iu)] DULoxetine HCL [Cymbalta] 120 mg PO DAILY 10/15/21 01/29/22 History Omeprazole [PriLOSEC] 40 mg PO DAILY 10/15/21 01/29/22 History buPROPion XL [Wellbutrin XL] 150 mg PO DAILY 01/29/22 01/29/22 History Aspirin 81 mg PO DAILY 10 Days #10 tab 01/30/22 Rx Nitroglycerin Sl Tabs [Nitrostat] 0.4 mg SUBLINGUAL Q5M PRN #10 tab 01/30/22 Rx Allergies Allergy/AdvReac Type Severity Reaction Status Date / Time No Known Allergies Allergy Verified 01/29/22 13:11 Physical Exam Vitals: Vital Signs Temp Pulse Resp BP Pulse Ox 01/30/22 08:10 18 01/30/22 07:00 97.6 F 75 18 106/64 97 01/30/22 02:22 97.4 F L 63 16 113/69 95 01/29/22 19:10 98.2 F 85 17 124/78 97 Intake and Output 01/30/22 01/30/22 01/30/22 06:59 14:59 22:59 Output Total 0 Balance 0 Output: Emesis 0 Other: # Voids 0 0 GENERAL EXAM: Patient is alert and oriented and doesn't appear to be in any acute distress HEENT: Normocephalic. Normal reaction of pupils, equal size, normal range of extraocular motion. No erythema or exudates in the throat. NECK: No masses, no nuchal rigidity. CHEST: No chest wall deformity. LUNGS: Equal air entry with no crackles or wheeze. HEART: S1 and S2 normal with no audible mumurs or gallops. Regular rhythm, femorals equal on both sides.. ABDOMEN: No hepatosplenomegaly, normal bowel sounds, no guarding or rigidity. SKIN: No rashes CENTRAL NERVOUS SYSTEM: No focal deficits. EXTREMITIES: No cyanosis, clubbing or edema. Results 01/29/22 12:10 01/29/22 14:08 Cardiac Enzymes 01/29/22 Range/Units 18:17 Troponin I <0.012 (0.000-0.034) ng/mL Lipids 01/30/22 Range/Units 06:34 Triglycerides 94.20 (0.00-149.00) mg/dL Cholesterol 230.00 H (0.00-200.00) mg/dL HDL Cholesterol 52.60 (40.00-60.00) mg/dL Cholesterol/HDL Ratio 4.37 Ratio Intake and Output 01/30/22 01/30/22 01/30/22 06:59 14:59 22:59 Output Total 0 Balance 0 Output: Emesis 0 Other: # Voids 0 0 01/29/22 12:10 01/29/22 14:08 EKG Interpretations (text) Sinus rhythm Assessment and Plan (1) History of HIV infection Status: Acute Code(s): B20 - HUMAN IMMUNODEFICIENCY VIRUS [HIV] DISEASE SNOMED Code(s): 650348115 (2) Chest pain Status: Acute Code(s): R07.9 - CHEST PAIN, UNSPECIFIED SNOMED Code(s): 94304374 (3) Depression Status: Acute Code(s): F32.9 - MAJOR DEPRESSIVE DISORDER, SINGLE EPISODE, UNSPECIFIED SNOMED Code(s): 55442708 Plan: Patient is pains appear to be typical. EKGs are negative, cardiac enzymes are negative. If agreeable with primary care physician and patient, patient could be discharged home for outpatient evaluation with stress test and echocardiogram
[2022-02-04] MEDS ORDERED: ERGOCALCIFEROL 1,250 MCG (50,000 IU) CAPSULE PO SCH (09:00)
== END 2022-01-30 14:00 | disposition home or self-care (01) ==
LOC: EC 11:26 → 6NMEDSUR 14:46
PROVIDERS: ADMIT Family Medicine; ATTEND Family Medicine
DX: R07.89 Other chest pain (principal); R61 Generalized hyperhidrosis; R06.02 Shortness of breath; K21.9 Gastro-esophageal reflux disease without esophagitis; F41.9 Anxiety disorder, unspecified; F32.A Depression, unspecified; K44.9 Diaphragmatic hernia without obstruction or gangrene; B20 Human immunodeficiency virus [HIV] disease; F17.210 Nicotine dependence, cigarettes, uncomplicated; Z71.6 Tobacco abuse counseling; Z90.49 Acquired absence of other specified parts of digestive tract; Z79.899 Other long term (current) drug therapy; Z79.82 Long term (current) use of aspirin; Z80.1 Family history of malignant neoplasm of trachea, bronchus and lung; Z82.49 Family history of ischemic heart disease and other diseases of the circulatory system
CPT/HCPCS: 96372; 99285; 36415; 93005; 85379; 80061; 80053; 83690; 83735; 84484; 85025; 85610; 85730; 81001; 71046; G0378 ×2; J1644

== ENCOUNTER 2022-03-06 11:50 | Emergency (ER) | payer OTHER ==
[2022-03-06] MEDS ORDERED: LORazepam 2 MG/ML INJ IV STA (11:53)
[2022-03-06 11:55] VITALS: TEMP 98.5
[2022-03-06 12:08] LABS: Basophils # (A) 0.1 k/uL (0-0.2); Basophils % (A) 1 %; Eosinophils # (A) 0.4 k/uL (0-0.7); Eosinophils % (A) 4 %; HCT 44.1 % (39.0-53.0); HGB 14.9 gm/dL (13.0-17.5); Lymphocytes # (A) 3.4 k/uL (1.0-4.8); Lymphocytes % (A) 34 %; MCH 33.3 pg (25.0-35.0); MCHC 33.8 g/dL (31.0-37.0); MCV 98.4 fL (80.0-100.0); Mean Platelet Volume 7.5; Monocytes # (A) 0.5 k/uL (0-1.0); Monocytes % (A) 5 %; Neutrophils # (A) 5.5 k/uL (1.3-7.7); Neutrophils % (A) 54 %; Platelet Count 228 k/uL (150-450); RBC 4.48 m/uL (4.30-5.90); RDW 13.3 % (11.5-15.5)
[2022-03-06 12:19] LABS: African American GFR (CKD) >90 (>60 ml/min/1.73 sqM); Anion Gap 15 mmol/L; Blood Urea Nitrogen 18 mg/dL (9-20); Calcium 9.6 mg/dL (8.4-10.2); Carbon Dioxide 19 mmol/L (22-30); Chloride 106 mmol/L (98-107); Glucose 121 mg/dL (74-99); Non-African American GFR(CKD) >90 (>60 ml/min/1.73 sqM); Potassium 3.7 mmol/L (3.5-5.1); Sodium 140 mmol/L (137-145)
--- NOTE | 2022-03-06 12:46 | ED ---
General Adult HPI - General Chief complaint: Chest Pain Stated complaint: chest pain Time Seen by Provider: 03/06/22 11:52 Source: EMS Mode of arrival: EMS Limitations: no limitations - History of Present Illness Initial comments: Dictation was produced using [employer] dictation software. please excuse any grammatical, word or spelling errors. Chief Complaint: 41-year-old male presents to emergency room for chest pain History of Present Illness: 41-year-old male who presents emergency department for chest pain. Patient states that the pain as sharp and substernal. No radiation of symptoms. No associated diaphoresis or nausea. Patient's history of anxiety. Patient has a history of HIV. Denies any fever or constitutional symptoms. Patient's please nonpleuritic. Non-positional. Patient was seen here in emergency department last month. He was admitted for observation for chest pain. Seen by cardiology sent home. Patient has no history of cardiac disease. Patient reports compliance with his HIV medications. The ROS documented in this emergency department record has been reviewed and confirmed by me. Those systems with pertinent positive or negative responses have been documented in the HPI. All other systems are other negative and/or noncontributory. PHYSICAL EXAM: General Impression: Alert and oriented x3, anxious HEENT: Normocephalic atraumatic, extra-ocular movements intact, pupils equal and reactive to light bilaterally, mucous membranes moist. Cardiovascular: Heart regular rate and rhythm Chest: Able to complete full sentences, no retractions, no tachypnea Abdomen: abdomen soft, non-tender, non-distended, no organomegaly Musculoskeletal: Pulses present and equal in all extremities, no peripheral edema Motor: no focal deficits noted Neurological: CN II-XII grossly intact, no focal motor or sensory deficits noted Skin: Intact with no visualized rashes Psych: Anxious ED course: 41 yo Male presents to the emergency department for atypical chest pain. He states that the pain as sharp. He has no high-risk features. As upon arrival are within acceptable limits. Patient is anxious at the bedside given anxiolytics with improvement of symptoms. EKG shows no signs of ischemia or infarction. Patient reevaluated at bedside at 1:30 PM. His girlfriend's at the bedside who provides some of the history present illness. States that he was at work when he began having these symptoms. Then started flailing around and supposedly struck the side of his head on some brick. Patient was not observed to have lost consciousness. States that his head pain does not feel bad. Nonetheless, for is concerned about his mental health. This point computed tomography scan will be ordered. Does appear to be well not showing any signs of distress. Doesn't seem is anxious after anxiolytic medications. Laboratory evaluation obtained found to be unremarkable. Troponins negative. Chest x-ray is nonacute. Computed tomography scan of the brain is unremarkable. Patient reevaluated again at 2:30 PM findings stable medical condition. Patient discharged. EKG interpretation: Ventricular rate 105, sinus tachycardia,. Interval 111, QS 80, QTC 369. No RI prolongation, no QTC prolongation, no ST or T-wave changes noted. EKG compared to 01/29/2022 showing no changes. Overall, this EKG is unremarkable - Related Data Home Medications Medication Instructions Recorded Confirmed Bictegrav/Emtricit/Tenofov Ala 1 tab PO DAILY@1400 08/31/20 01/29/22 [Biktarvy 50-200-25 mg Tablet] Ergocalciferol (Vitamin D2) 1,250 mcg PO TH 10/08/20 01/29/22 [Vitamin D2 (50,000 Iu)] DULoxetine HCL [Cymbalta] 120 mg PO DAILY 10/15/21 01/29/22 Omeprazole [PriLOSEC] 40 mg PO DAILY 10/15/21 01/29/22 buPROPion XL [Wellbutrin XL] 150 mg PO DAILY 01/29/22 01/29/22 Previous Rx's Medication Instructions Recorded Ondansetron Odt [Zofran ODT] 4 mg PO Q8HR PRN #12 tab 05/11/19 Aspirin 81 mg PO DAILY 10 Days #10 tab 01/30/22 Nitroglycerin Sl Tabs [Nitrostat] 0.4 mg SUBLINGUAL Q5M PRN #10 tab 01/30/22 Allergies Allergy/AdvReac Type Severity Reaction Status Date / Time No Known Allergies Allergy Verified 01/29/22 13:11 Review of Systems ROS Statement: Those systems with pertinent positive or pertinent negative responses have been documented in the HPI. ROS Other: All systems not noted in ROS Statement are negative. Past Medical History Past Medical History: GERD/Reflux Additional Past Medical History / Comment(s): nausea, HIV. HIATAL HERNIA, Last CD4 count 301 History of Any Multi-Drug Resistant Organisms: None Reported Past Surgical History: Cholecystectomy, Hernia Repair Additional Past Surgical History / Comment(s): Colonoscopy/EGD. UPPER TEETH REMOVED, darrell Past Anesthesia/Blood Transfusion Reactions: No Reported Reaction Past Psychological History: Anxiety, Depression Smoking Status: Current every day smoker Past Alcohol Use History: None Reported Past Drug Use History: Marijuana - Past Family History Father Family Medical History: Coronary Artery Disease (CAD), Hypertension, Myocardial Infarction ([place]) Mother History Unknown: Yes Family Medical History: Cancer Additional Family Medical History / Comment(s): LUNG CANCER General Exam Limitations: no limitations Course Vital Signs 03/06/22 03/06/22 11:51 14:00 Temperature 98.5 F Pulse Rate 99 81 Respiratory 30 H 18 Rate Blood Pressure 147/95 124/84 O2 Sat by Pulse 100 96 Oximetry Medical Decision Making - Lab Data Result diagrams: 03/06/22 12:00 03/06/22 12:00 Lab Results 03/06/22 03/06/22 03/06/22 Range/Units 12:00 12:00 12:00 WBC 10.0 (3.8-10.6) k/uL RBC 4.48 (4.30-5.90) m/uL Hgb 14.9 (13.0-17.5) gm/dL Hct 44.1 (39.0-53.0) % MCV 98.4 (80.0-100.0) fL MCH 33.3 (25.0-35.0) pg MCHC 33.8 (31.0-37.0) g/dL RDW 13.3 (11.5-15.5) % Plt Count 228 (150-450) k/uL MPV 7.5 Neutrophils % 54 % Lymphocytes % 34 % Monocytes % 5 % Eosinophils % 4 % Basophils % 1 % Neutrophils # 5.5 (1.3-7.7) k/uL Lymphocytes # 3.4 (1.0-4.8) k/uL Monocytes # 0.5 (0-1.0) k/uL Eosinophils # 0.4 (0-0.7) k/uL Basophils # 0.1 (0-0.2) k/uL Sodium 140 (137-145) mmol/L Potassium 3.7 (3.5-5.1) mmol/L Chloride 106 (98-107) mmol/L Carbon Dioxide 19 L (22-30) mmol/L Anion Gap 15 mmol/L BUN 18 (9-20) mg/dL Creatinine 0.98 (0.66-1.25) mg/dL Est GFR (CKD-EPI)AfAm >90 (>60 ml/min/1.73 sqM) Est GFR (CKD-EPI)NonAf >90 (>60 ml/min/1.73 sqM) Glucose 121 H (74-99) mg/dL Calcium 9.6 (8.4-10.2) mg/dL Troponin I <0.012 (0.000-0.034) ng/mL Disposition Clinical Impression: Anxiety Disposition: HOME SELF-CARE Condition: Good Instructions (If sedation given, give patient instructions): Chest Pain (ED) Is patient prescribed a controlled substance at d/c from ED?: No Referrals: Hebert Caldwell DO [Primary Care Provider] - 1-2 days Time of Disposition: 14:26
--- NOTE | 2022-03-06 13:11 | XR ---
EXAMINATION TYPE: XR chest 2V DATE OF EXAM: 03/06/2022 COMPARISON: 01/29/2022 INDICATION: Chest pain TECHNIQUE: Frontal and lateral views of the chest are obtained. FINDINGS: The heart size is normal. The pulmonary vasculature is normal. The lungs are clear. IMPRESSION: 1. No acute pulmonary process.
[2022-03-06 14:04] VITALS: RESP 18
--- NOTE | 2022-03-06 14:08 | CT ---
EXAMINATION TYPE: CT brain wo con DATE OF EXAM: 03/06/2022 COMPARISON: 10/15/2021 INDICATION: Head contusion. DLP: 1174.4 mGycm, Automated exposure control for dose reduction was used. CONTRAST: None CT of the brain is performed utilizing 3 mm thick sections through the posterior fossa and 3 mm thick sections through the remaining calvarium. Study is performed within 24 hours of arrival to the hosp ital. No abnormal hyperdensity is present to suggest an acute intracranial hemorrhage. No mass lesion is evident. No acute infarcts are evident. Ventricles and sulci are appropriate for the patient age. Paranasal sinuses and mastoid air cells within the [id number] are clear. IMPRESSIONS: 1. No acute intracranial process. MRI can be performed as clinically indicated.
[2022-03-06 14:40] VITALS: BP 120/78; PULSE 82
== END 2022-03-06 14:47 | disposition home or self-care (01) ==
LOC: EC 11:50
DX: F41.9 Anxiety disorder, unspecified (principal); R07.89 Other chest pain; K21.9 Gastro-esophageal reflux disease without esophagitis; F17.200 Nicotine dependence, unspecified, uncomplicated; B20 Human immunodeficiency virus [HIV] disease; Z79.899 Other long term (current) drug therapy
CPT/HCPCS: 36415; 93005; 80048; 84484; 85025; 71046; 70450; 99284; 96374; J2060; 99285

== ENCOUNTER 2022-07-02 20:16 | Emergency (ER) | payer OTHER ==
--- NOTE | 2022-07-02 21:08 | ED ---
General Adult HPI - General Chief complaint: Upper Respiratory Infection Stated complaint: Back Pain Time Seen by Provider: 07/02/22 20:25 Source: EMS Mode of arrival: EMS Limitations: no limitations - History of Present Illness Initial comments: This is a 42-year-old male with a past medical history including cough and concerns for "getting pneumonia again." The patient reported that starting this morning around 4 AM he started to have increasing cough and congestion and was concerned that he had pneumonia again. The patient stated that because of his HIV he gets constant infections and continued to state over and over again how he thought he had pneumonia. The patient was anxious on my evaluation however did not appear in any acute respiratory distress. The patient denied any fevers and chills but did report nasal congestion and cough. The patient denied any other complaints denied any recent sick contacts. The patient did report that he had been taking his HIV medications over the last several months but did not take his medications today. The patient did state that his last CD4 count was approximately 380 with a viral load is undetectable. - Related Data Home Medications Medication Instructions Recorded Confirmed Bictegrav/Emtricit/Tenofov Ala 1 tab PO DAILY@1400 08/31/20 01/29/22 [Biktarvy 50-200-25 mg Tablet] Ergocalciferol (Vitamin D2) 1,250 mcg PO TH 10/08/20 01/29/22 [Vitamin D2 (50,000 Iu)] DULoxetine HCL [Cymbalta] 120 mg PO DAILY 10/15/21 01/29/22 Omeprazole [PriLOSEC] 40 mg PO DAILY 10/15/21 01/29/22 buPROPion XL [Wellbutrin XL] 150 mg PO DAILY 01/29/22 01/29/22 Previous Rx's Medication Instructions Recorded Ondansetron Odt [Zofran ODT] 4 mg PO Q8HR PRN #12 tab 05/11/19 Aspirin 81 mg PO DAILY 10 Days #10 tab 01/30/22 Nitroglycerin Sl Tabs [Nitrostat] 0.4 mg SUBLINGUAL Q5M PRN #10 tab 01/30/22 Allergies Allergy/AdvReac Type Severity Reaction Status Date / Time No Known Allergies Allergy Verified 01/29/22 13:11 Review of Systems ROS Statement: Those systems with pertinent positive or pertinent negative responses have been documented in the HPI. ROS Other: All systems not noted in ROS Statement are negative. Past Medical History Past Medical History: GERD/Reflux Additional Past Medical History / Comment(s): nausea, HIV. HIATAL HERNIA, Last CD4 count 301 History of Any Multi-Drug Resistant Organisms: None Reported Past Surgical History: Cholecystectomy, Hernia Repair Additional Past Surgical History / Comment(s): Colonoscopy/EGD. UPPER TEETH REMOVED, darrell Past Anesthesia/Blood Transfusion Reactions: No Reported Reaction Past Psychological History: Anxiety, Depression Smoking Status: Current every day smoker Past Alcohol Use History: None Reported Past Drug Use History: Marijuana - Past Family History Father Family Medical History: Coronary Artery Disease (CAD), Hypertension, Myocardial Infarction ([place]) Mother History Unknown: Yes Family Medical History: Cancer Additional Family Medical History / Comment(s): LUNG CANCER General Exam Limitations: no limitations General appearance: alert, in no apparent distress, anxious Head exam: Present: atraumatic, normocephalic Eye exam: Present: normal appearance, PERRL Pupils: Present: normal accommodation ENT exam: Present: normal exam, normal oropharynx Neck exam: Present: normal inspection, full ROM Respiratory exam: Present: normal lung sounds bilaterally Cardiovascular Exam: Present: regular rate, normal rhythm, normal heart sounds GI/Abdominal exam: Present: soft, normal bowel sounds Extremities exam: Present: normal inspection, full ROM Back exam: Present: normal inspection, full ROM Neurological exam: Present: alert, oriented X3, CN II-XII intact Psychiatric exam: Present: normal affect, normal mood Skin exam: Present: warm, dry Course Vital Signs 07/02/22 07/02/22 20:20 22:10 Temperature 100.4 F H 99.7 F H Pulse Rate 98 84 Respiratory 18 16 Rate Blood Pressure 170/77 128/73 O2 Sat by Pulse 98 97 Oximetry Medical Decision Making - Medical Decision Making The patient was seen and evaluated in the emergency department. Physical exam, the patient was resting in bed without any acute distress however was mildly anxious. Vital signs admission did show a mild fever of 100.4F. Due to the patient's history of HIV in the setting of likely URI symptoms, basic laboratory workup was obtained as was a chest x-ray and COVID-19 and influenza swabs. Laboratory workup was obtained and was largely within normal limits however the patient was positive for influenza A. Chest x-ray was negative. The patient co ntinued to remain stable and was told of these results. The patient was advised to continue take Motrin and Tylenol at home and to report back to the emergency department if he had worsening shortness of breath or difficulty in breathing. The patient was also advised to follow-up with his primary care physician for further workup and evaluation. The patient was agreeable to this and all discretions were answered. The patient was discharged home in stable condition. - Lab Data Result diagrams: 07/02/22 21:07/02/22 21:03 Lab Results 07/02/22 07/02/22 07/02/22 Range/Units 21:03 21: 21:03 WBC 7.0 (3.8-10.6) k/uL RBC 4.12 L (4.30-5.90) m/uL Hgb 14.0 (13.0-17.5) gm/dL Hct 40.1 (39.0-53.0) % MCV 97.2 (80.0-100.0) fL MCH 33.9 (25.0-35.0) pg MCHC 34.8 (31.0-37.0) g/dL RDW 13.8 (11.5-15.5) % Plt Count 165 (150-450) k/uL MPV 8.4 Neutrophils % 84 % Lymphocytes % 6 % Monocytes % 7 % Eosinophils % 1 % Basophils % 1 % Neutrophils # 5.8 (1.3-7.7) k/uL Lymphocytes # 0.4 L (1.0-4.8) k/uL Monocytes # 0.5 (0-1.0) k/uL Eosinophils # 0.1 (0-0.7) k/uL Basophils # 0.0 (0-0.2) k/uL Sodium 137 (137-145) mmol/L Potassium 3.3 L (3.5-5.1) mmol/L Chloride 109 H (98-107) mmol/L Carbon Dioxide 21 L (22-30) mmol/L Anion Gap 7 mmol/L BUN 14 (9-20) mg/dL Creatinine 0.80 (0.66-1.25) mg/dL Est GFR (CKD-EPI)AfAm >90 (>60 ml/min/1.73 sqM) Est GFR (CKD-EPI)NonAf >90 (>60 ml/min/1.73 sqM) Glucose 95 (74-99) mg/dL Calcium 8.5 (8.4-10.2) mg/dL Magnesium 1.8 (1.6-2.3) mg/dL Total Bilirubin 0.4 (0.2-1.3) mg/dL AST 25 (17-59) U/L ALT 21 (4-49) U/L Alkaline Phosphatase 34 L (38-126) U/L Total Protein 6.6 (6.3-8.2) g/dL Albumin 4.1 (3.5-5.0) g/dL Coronavirus (PCR) Not Detected (Not Detectd) Influenza Type A RNA (Not Detectd) Influenza Type B (PCR) (Not Detectd) 07/02/22 Range/Units 21:03 WBC (3.8-10.6) k/uL RBC (4.30-5.90) m/uL Hgb (13.0-17.5) gm/dL Hct (39.0-53.0) % MCV (80.0-100.0) fL MCH (25.0-35.0) pg MCHC (31.0-37.0) g/dL RDW (11.5-15.5) % Plt Count (150-450) k/uL MPV Neutrophils % % Lymphocytes % % Monocytes % % Eosinophils % % Basophils % % Neutrophils # (1.3-7.7) k/uL Lymphocytes # (1.0-4.8) k/uL Monocytes # (0-1.0) k/uL Eosinophils # (0-0.7) k/uL Basophils # (0-0.2) k/uL Sodium (137-145) mmol/L Potassium (3.5-5.1) mmol/L Chloride (98-107) mmol/L Carbon Dioxide (22-30) mmol/L Anion Gap mmol/L BUN (9-20) mg/dL Creatinine (0.66-1.25) mg/dL Est GFR (CKD-EPI)AfAm (>60 ml/min/1.73 sqM) Est GFR (CKD-EPI)NonAf (>60 ml/min/1.73 sqM) Glucose (74-99) mg/dL Calcium (8.4-10.2) mg/dL Magnesium (1.6-2.3) mg/dL Total Bilirubin (0.2-1.3) mg/dL AST (17-59) U/L ALT (4-49) U/L Alkaline Phosphatase (38-126) U/L Total Protein (6.3-8.2) g/dL Albumin (3.5-5.0) g/dL Coronavirus (PCR) (Not Detectd) Influenza Type A RNA Detected H (Not Detectd) Influenza Type B (PCR) Not Detected (Not Detectd) Disposition Clinical Impression: Influenza A Disposition: HOME SELF-CARE Condition: Stable Instructions (If sedation given, give patient instructions): Influenza (DC) Is patient prescribed a controlled substance at d/c from ED?: No Referrals: Hebert Caldwell DO [Primary Care Provider] - 1-2 days Time of Disposition: 22:10
[2022-07-02 21:38] LABS: Basophils % (A) 1 %; Eosinophils # (A) 0.1 k/uL (0-0.7); Eosinophils % (A) 1 %; HCT 40.1 % (39.0-53.0); Lymphocytes # (A) 0.4 k/uL (1.0-4.8); Lymphocytes % (A) 6 %; MCH 33.9 pg (25.0-35.0); MCHC 34.8 g/dL (31.0-37.0); MCV 97.2 fL (80.0-100.0); Mean Platelet Volume 8.4; Monocytes # (A) 0.5 k/uL (0-1.0); Monocytes % (A) 7 %; Neutrophils # (A) 5.8 k/uL (1.3-7.7); Neutrophils % (A) 84 %; Platelet Count 165 k/uL (150-450); RBC 4.12 m/uL (4.30-5.90); RDW 13.8 % (11.5-15.5)
[2022-07-02 21:49] LABS: ALT 21 U/L (4-49); AST 25 U/L (17-59); African American GFR (CKD) >90 (>60 ml/min/1.73 sqM); Albumin 4.1 g/dL (3.5-5.0); Alkaline Phosphatase 34 U/L (38-126); Anion Gap 7 mmol/L; Blood Urea Nitrogen 14 mg/dL (9-20); Calcium 8.5 mg/dL (8.4-10.2); Carbon Dioxide 21 mmol/L (22-30); Chloride 109 mmol/L (98-107); Glucose 95 mg/dL (74-99); Magnesium 1.8 mg/dL (1.6-2.3); Non-African American GFR(CKD) >90 (>60 ml/min/1.73 sqM); Potassium 3.3 mmol/L (3.5-5.1); Sodium 137 mmol/L (137-145); Total Bilirubin 0.4 mg/dL (0.2-1.3); Total Protein 6.6 g/dL (6.3-8.2)
[2022-07-02 22:11] VITALS: BP 128/73; PULSE 84; RESP 16; TEMP 99.7
--- NOTE | 2022-07-02 23:06 | XR ---
EXAMINATION TYPE: XR chest 2V DATE OF EXAM: 07/02/2022 COMPARISON: 03/06/2022 HISTORY: Chest pain TECHNIQUE: FINDINGS: There is no heart failure nor confluent pneumonic infiltrate. Costophrenic angles are clear . There are no hilar masses. Bony thorax is intact IMPRESSION: Total chest. No change from
== END 2022-07-02 22:21 | disposition home or self-care (01) ==
LOC: EC 20:16
DX: J10.1 Influenza due to other identified influenza virus with other respiratory manifestations (principal); F41.9 Anxiety disorder, unspecified; F32.A Depression, unspecified; F17.200 Nicotine dependence, unspecified, uncomplicated; F12.90 Cannabis use, unspecified, uncomplicated; K21.9 Gastro-esophageal reflux disease without esophagitis; Z20.822 Contact with and (suspected) exposure to COVID-19; Z21 Asymptomatic human immunodeficiency virus [HIV] infection status; Z79.82 Long term (current) use of aspirin
CPT/HCPCS: 36415; 71046; 80053; 83735; 85025; 87502; 87635; 99284; 99285

== ENCOUNTER 2023-09-29 10:32 | Emergency (ER) | payer OTHER ==
[2023-09-29] MEDS: diphenhydrAMINE 50 MG/ML 1 ML VIAL IVP STA (11:27)
--- NOTE | 2023-09-29 11:27 | ED ---
Nausea/Vomiting/Diarrhea HPI - General Chief complaint: Nausea/Vomiting/Diarrhea Stated complaint: Vomitting, stomach ache Time Seen by Provider: 09/29/23 10:43 Source: patient, RN notes reviewed Mode of arrival: ambulatory Limitations: no limitations - History of Present Illness Initial comments: 43-year-old male presents emergency department with chief complaint of nausea vomiting. Patient states that it started on 3 AM this morning. Patient compla ins of diffuse abdominal pain greatest in his epigastric region. Patient states he has been vomiting which is causing worsening epigastric, chest discomfort. Patient does have HIV and is followed by infectious disease states CD4 count under control. Patient denies any sick contacts he reports fever no cough or cold-like symptoms. Does complain of bodyaches. - Related Data Home Medications Medication Instructions Recorded Confirmed Bictegrav/Emtricit/Tenofov Ala 1 tab PO DAILY@1400 08/31/20 01/29/22 [Biktarvy 50-200-25 mg Tablet] Ergocalciferol (Vitamin D2) 1,250 mcg PO TH 10/08/20 01/29/22 [Vitamin D2 (50,000 Iu)] DULoxetine HCL [Cymbalta] 120 mg PO DAILY 10/15/21 01/29/22 Omeprazole [PriLOSEC] 40 mg PO DAILY 10/15/21 01/29/22 buPROPion XL [Wellbutrin XL] 150 mg PO DAILY 01/29/22 01/29/22 Previous Rx's Medication Instructions Recorded Ondansetron Odt [Zofran ODT] 4 mg PO Q8HR PRN #12 tab 05/11/19 Aspirin 81 mg PO DAILY 10 Days #10 tab 01/30/22 Nitroglycerin Sl Tabs [Nitrostat] 0.4 mg SUBLINGUAL Q5M PRN #10 tab 01/30/22 Ondansetron Odt [Zofran Odt] 4 mg PO Q8HR PRN #10 tab 09/29/23 Allergies Allergy/AdvReac Type Severity Reaction Status Date / Time No Known Allergies Allergy Verified 09/29/23 10:40 Review of Systems ROS Statement: Those systems with pertinent positive or pertinent negative responses have been documented in the HPI. ROS Other: All systems not noted in ROS Statement are negative. Past Medical History Past Medical History: GERD/Reflux Additional Past Medical History / Comment(s): nausea, HIV. HIATAL HERNIA, Last CD4 count 301 History of Any Multi-Drug Resistant Organisms: None Reported Past Surgical History: Cholecystectomy, Hernia Repair Additional Past Surgical History / Comment(s): Colonoscopy/EGD. UPPER TEETH REMOVED, darrell Past Anesthesia/Blood Transfusion Reactions: No Reported Reaction Past Psychological History: Anxiety, Depression Smoking Status: Current every day smoker Past Alcohol Use History: None Reported Past Drug Use History: Marijuana - Past Family History Father Family Medical History: Coronary Artery Disease (CAD), Hypertension, Myocardial Infarction ([place]) Mother History Unknown: Yes Family Medical History: Cancer Additional Family Medical History / Comment(s): LUNG CANCER General Exam Limitations: no limitations General appearance: alert, in no apparent distress Head exam: Present: atraumatic, normocephalic, normal inspection Eye exam: Present: normal appearance, PERRL, EOMI. Absent: scleral icterus, conjunctival injection, periorbital swelling ENT exam: Present: normal exam, normal oropharynx, mucous membranes moist Neck exam: Present: normal inspection, full ROM. Absent: tenderness, meningismus, lymphadenopathy Respiratory exam: Present: normal lung sounds bilaterally. Absent: respiratory distress, wheezes, rales, rhonchi, stridor Cardiovascular Exam: Present: normal rhythm, tachycardia, normal heart sounds. Absent: systolic murmur, diastolic murmur, rubs, gallop, clicks GI/Abdominal exam: Present: soft, tenderness, normal bowel sounds. Absent: distended, guarding, rebound, rigid Course Vital Signs 09/29/23 09/29/23 10:37 14:01 Temperature 97.4 F L 98.7 F Pulse Rate 103 H 84 Respiratory 18 20 Rate Blood Pressure 123/94 105/64 O2 Sat by Pulse 99 98 Oximetry Medical Decision Making - Medical Decision Making Was pt. sent in by a medical professional or institution (, PA, INSIDE TRUCKER, urgent care, hospital, or [facility]...) When possible be specific @ -No Did you speak to anyone other than the patient for history (EMS, parent, family, police, friend...)? What history was obtained from this source @ -No Did you review nursing and triage notes (agree or disagree)? Why? @ -I reviewed and agree with nursing and triage notes Were old charts reviewed (outside hosp., previous admission, EMS record, old EKG, old radiological studies, urgent care reports/EKG's, [facility] records)? Report findings @ -No old charts were reviewed Differential Diagnosis (chest pain, altered mental status, abdominal pain women, abdominal pain men, vaginal bleeding, weakness, fever, dyspnea, syncope, headache, dizziness, GI bleed, back pain, seizure, CVA, palpatations, mental health, musculoskeletal)? @ -[Differential Abdominal Pain Men: Appendicitis, cholecystitis, diverticulosis, ischemic bowel, pancreatitis, hepatitis, UTI, gastroenteritis, AAA, incarcerated hernia, bowel obstruction, constipation, inflammatory bowel, hepatitis, peptic ulcer disease, splenic infarction, perforated viscus, testicular torsion, this is not meant to be an all-inclusive list EKG interpreted by me (3pts min.). @ -As above X-rays interpreted by me (1pt min.). @ -None done CT interpreted by me (1pt min.). @ -[CT of the pelvis showing fluid-filled intestine, stomach concerning for enteritis U/S interpreted by me (1pt. min.). @ -None done What testing was considered but not performed or refused? (CT, X-rays, U/S, labs)? Why? @ -None What meds were considered but not given or refused? Why? @ -None Did you discuss the management of the patient with other professionals (professionals i.e. , PA, INSIDE TRUCKER, lab, RT, psych nurse, neonatal social worker, lawyer criminal, teacher, parking regulation enforcement officer, case investigator)? Give summary @ -No Was smoking cessation discussed for >3mins.? @ -No Was critical care preformed (if so, how long)? @ -No Were there social determinants of health that impacted care today? How? (Homelessness, low income, unemployed, alcoholism, drug addiction, trans portation, low edu. Level, literacy, decrease access to med. care, group home, rehab)? @ -No Was there de-escalation of care discussed even if they declined (Discuss DNR or withdrawal of care, Hospice)? DNR status @ -No What co-morbidities impacted this encounter? (DM, HTN, Smoking, COPD, CAD, Cancer, CVA, ARF, Chemo, Hep., AIDS, mental health diagnosis, sleep apnea, morbid obesity)? @ -[HIV Was patient admitted / discharged? Hospital course, mention meds given and route, prescriptions, significant lab abnormalities, going to OR and other pertinent info. @ -Discharged patient feels greatly improved this time. Patient has gastroenteritis will be discharged with antiemetics return brands are discussed. Patient advised to have close recheck. Undiagnosed new problem with uncertain prognosis? @ -[No Drug Therapy requiring intensive monitoring for toxicity (Heparin, Nitro, Insulin, Cardizem)? @ -No Were any procedures done? @ -No Diagnosis/symptom? @ -Gastroenteritis Acute, or Chronic, or Acute on Chronic? @ -[Acute Uncomplicated (without systemic symptoms) or Complicated (systemic symptoms)? @ -Uncomplicated Side effects of treatment? @ -No Exacerbation, Progression, or Severe Exacerbation? @ -No Poses a threat to life or bodily function? How? (Chest pain, [place], [place], pneumonia, PE, COPD, DKA, ARF, appy, cholecystitis, CVA, Diverticulitis, Homicidal, Suicidal, threat to staff... and all critical care pts) @ -No - Lab Data Result diagrams: 09/29/23 11:12 09/29/23 11:12 Lab Results 09/29/23 09/29/23 09/29/23 Range/Units 11:12 11:12 11:12 WBC 16.6 H (3.8-10.6) k/uL RBC 4.82 (4.30-5.90) m/uL Hgb 16.4 (13.0-17.5) gm/dL Hct 47.1 (39.0-53.0) % MCV 97.8 (80.0-100.0) fL MCH 34.0 (25.0-35.0) pg MCHC 34.8 (31.0-37.0) g/dL RDW 13.8 (11.5-15.5) % Plt Count 267 (150-450) k/uL MPV 7.7 Neutrophils % 91 % Lymphocytes % 3 % Monocytes % 4 % Eosinophils % 1 % Basophils % 0 % Neutrophils # 15.1 H (1.3-7.7) k/uL Lymphocytes # 0.5 L (1.0-4.8) k/uL Monocytes # 0.7 (0-1.0) k/uL Eosinophils # 0.2 (0-0.7) k/uL Basophils # 0.0 (0-0.2) k/uL Manual Slide Review Performed RBC Morphology Normal Sodium 142 (137-145) mmol/L Potassium 4.6 (3.5-5.1) mmol/L Chloride 110 H (98-107) mmol/L Carbon Dioxide 19 L (22-30) mmol/L Anion Gap 13 mmol/L BUN 20 (9-20) mg/dL Creatinine 0.87 (0.66-1.25) mg/dL Est GFR (CKD-EPI)AfAm >90 (>60 ml/min/1.73 sqM) Est GFR (CKD-EPI)NonAf >90 (>60 ml/min/1.73 sqM) Glucose 158 H (74-99) mg/dL Calcium 9.7 (8.4-10.2) mg/dL Total Bilirubin 0.7 (0.2-1.3) mg/dL AST 58 (17-59) U/L ALT 47 (4-49) U/L Alkaline Phosphatase 29 L (38-126) U/L Troponin I (0.000-0.034) ng/mL Total Protein 8.2 (6.3-8.2) g/dL Albumin 4.8 (3.5-5.0) g/dL Lipase 34 (23-300) U/L Urine Color Yellow Urine Appearance Clear (Clear) Urine pH 5.5 (5.0-8.0) Ur Specific [place] 1.031 (1.001-1.035) Urine Protein 1+ H (Negative) Urine Glucose (UA) Trace H (Negative) Urine Ketones Trace H (Negative) Urine Blood Negative (Negative) Urine Nitrite Negative (Negative) Urine Bilirubin Negative (Negative) Urine Urobilinogen <2.0 (<2.0) mg/dL Ur Leukocyte Esterase Negative (Negative) Urine RBC 1 (0-5) /hpf Urine WBC 2 (0-5) /hpf Ur Squamous Epith Cells <1 (0-4) /hpf Urine Mucus Many H (None) /hpf Influenza Type A (PCR) (Not Detectd) Influenza Type B (PCR) (Not Detectd) RSV (PCR) (Not Detectd) SARS-CoV-2 (PCR) (Not Detectd) 09/29/23 09/29/23 Range/Units 11:12 11:12 WBC (3.8-10.6) k/uL RBC (4.30-5.90) m/uL Hgb (13.0-17.5) gm/dL Hct (39.0-53.0) % MCV (80.0-100.0) fL MCH (25.0-35.0) pg MCHC (31.0-37.0) g/dL RDW (11.5-15.5) % Plt Count (150-450) k/uL MPV Neutrophils % % Lymphocytes % % Monocytes % % Eosinophils % % Basophils % % Neutrophils # (1.3-7.7) k/uL Lymphocytes # (1.0-4.8) k/uL Monocytes # (0-1.0) k/uL Eosinophils # (0-0.7) k/uL Basophils # (0-0.2) k/uL Manual Slide Review RBC Morphology Sodium (137-145) mmol/L Potassium (3.5-5.1) mmol/L Chloride (98-107) mmol/L Carbon Dioxide (22-30) mmol/L Anion Gap mmol/L BUN (9-20) mg/dL Creatinine (0.66-1.25) mg/dL Est GFR (CKD-EPI)AfAm (>60 ml/min/1.73 sqM) Est GFR (CKD-EPI)NonAf (>60 ml/min/1.73 sqM) Glucose (74-99) mg/dL Calcium (8.4-10.2) mg/dL Total Bilirubin (0.2-1.3) mg/dL AST (17-59) U/L ALT (4-49) U/L Alkaline Phosphatase (38-126) U/L Troponin I <0.012 (0.000-0.034) ng/mL Total Protein (6.3-8.2) g/dL Albumin (3.5-5.0) g/dL Lipase (23-300) U/L Urine Color Urine Appearance (Clear) Urine pH (5.0-8.0) Ur Specific [place] (1.001-1.035) Urine Protein (Negative) Urine Glucose (UA) (Negative) Urine Ketones (Negative) Urine Blood (Negative) Urine Nitrite (Negative) Urine Bilirubin (Negative) Urine Urobilinogen (<2.0) mg/dL Ur Leukocyte Esterase (Negative) Urine RBC (0-5) /hpf Urine WBC (0-5) /hpf Ur Squamous Epith Cells (0-4) /hpf Urine Mucus (None) /hpf Influenza Type A (PCR) Not Detected (Not Detectd) Influenza Type B (PCR) Not Detected (Not Detectd) RSV (PCR) Not Detected (Not Detectd) SARS-CoV-2 (PCR) Not Detected (Not Detectd) - EKG Data -: EKG Interpreted by Me EKG Comments: EKG performed at 11: 01 sinus rhythm with a rate of 85 CO 136 QRS 88 QT/QTc 310/[address] elevation depression there is noted inverted T waves V3 through V5. Disposition Clinical Impression: Gastroenteritis Disposition: HOME SELF-CARE Condition: Stable Instructions (If sedation given, give patient instructions): Acute Nausea and Vomiting (ED) Additional Instructions: Please return to the Emergency Department if symptoms worsen or any other concerns. Prescriptions: Ondansetron Odt [Zofran Odt] 4 mg PO Q8HR PRN #10 tab PRN Reason: Nausea Is patient prescribed a controlled substance at d/c from ED?: No Referrals: Hebert Caldwell DO [Primary Care Provider] - 1-2 days Time of Disposition: 13:53
[2023-09-29] MEDS: METOCLOPRAMIDE 5 MG/ML 2 ML VIAL IVP STA (11:29)
[2023-09-29] MEDS: FAMOTIDINE 20 MG/2 ML VIAL IV STA (11:30)
[2023-09-29] MEDS: SODIUM CHLORIDE 0.9% 1,000 ML IV STA (11:32)
[2023-09-29 11:36] LABS: Basophils % (A) 0 %; Eosinophils # (A) 0.2 k/uL (0-0.7); Eosinophils % (A) 1 %; HCT 47.1 % (39.0-53.0); HGB 16.4 gm/dL (13.0-17.5); Lymphocytes # (A) 0.5 k/uL (1.0-4.8); Lymphocytes % (A) 3 %; MCHC 34.8 g/dL (31.0-37.0); MCV 97.8 fL (80.0-100.0); Mean Platelet Volume 7.7; Monocytes # (A) 0.7 k/uL (0-1.0); Monocytes % (A) 4 %; Neutrophils # (A) 15.1 k/uL (1.3-7.7); Neutrophils % (A) 91 %; Platelet Count 267 k/uL (150-450); RBC 4.82 m/uL (4.30-5.90); RDW 13.8 % (11.5-15.5); WBC 16.6 k/uL (3.8-10.6)
[2023-09-29 11:38] LABS: Appearance,Urine Clear (Clear); Bilirubin,Urine Negative (Negative); Blood,Urine Negative (Negative); Color,Urine Yellow; Glucose,Urine (UA) Trace (Negative); Ketones,Urine Trace (Negative); Leukocyte Esterase,Urine Negative (Negative); Mucus,Urine Many /hpf; Nitrite,Urine Negative (Negative); PH, Urine 5.5 (5.0-8.0); Protein,Urine 1+ (Negative); RBC,Urine 1 /hpf (0-5); Specific Gravity,Urine 1.031 (1.001-1.035); Squamous Epithelial Cell,Urine <1 /hpf (0-4); Urobilinogen,Urine <2.0 mg/dL (<2.0); WBC,Urine 2 /hpf (0-5)
[2023-09-29] MEDS: SODIUM CHLORIDE 0.9% 500 ML 500 ML IV STA (11:39)
[2023-09-29 11:55] LABS: ALT 47 U/L (4-49); African American GFR (CKD) >90 (>60 ml/min/1.73 sqM); Albumin 4.8 g/dL (3.5-5.0); Anion Gap 13 mmol/L; Blood Urea Nitrogen 20 mg/dL (9-20); Calcium 9.7 mg/dL (8.4-10.2); Carbon Dioxide 19 mmol/L (22-30); Chloride 110 mmol/L (98-107); Glucose 158 mg/dL (74-99); Lipase 34 U/L (23-300); Non-African American GFR(CKD) >90 (>60 ml/min/1.73 sqM); Sodium 142 mmol/L (137-145); Total Bilirubin 0.7 mg/dL (0.2-1.3); Total Protein 8.2 g/dL (6.3-8.2)
[2023-09-29 12:09] LABS: AST 58 U/L (17-59); Alkaline Phosphatase 29 U/L (38-126); Potassium 4.6 mmol/L (3.5-5.1)
[2023-09-29 12:12] LABS: RBC Morphology Normal
[2023-09-29] MEDS: KETOROLAC 15 MG/ML 1 ML VIAL IVP STA (12:48)
--- NOTE | 2023-09-29 13:09 | CT ---
EXAMINATION: CT ABDOMEN AND PELVIS WITH IV CONTRAST DATE OF EXAMINATION: 09/29/2023. COMPARISON: None available. INDICATION: Abdominal pain with vomiting and fever. PROCEDURE: Axial CT of the abdomen and pelvis was performed with contrast and sagittal and coronal reformatted images were performed. CT dose lowering techniques were used, to include: automated expos ure control, adjustment for patient size, and/or use of iterative reconstruction. FINDINGS: LOWER CHEST : The visualized lung bases are clear. There are no pleural or pericardial effusions. ABDOMEN: Liver and Biliary system: Normal. Adrenal glands: Normal. Kidneys and ureters: Normal. Spleen: Normal. Pancreas: Normal. Gallbladder: Absent. Lymph nodes, Peritoneum and mesentery: There is no mesenteric or retroperitoneal lymphadenopathy. Gastrointestinal tract: There are no dilated loops of bowel or free intraperitoneal air. Scattered d istended nondilated loops of small bowel with mucosal enhancement may relate to a nonspecific enterit is. The stomach is distended which is fluid and debris-filled. There is no evidence of appendicitis . Aorta/IVC: No aortic aneurysm. IVC normal. Abdominal wall: Normal. PELVIS: Fluid: There is no free fluid in the pelvis. Lymph Nodes: There is no pelvic or inguinal lymphadenopathy.. Urinary bladder: Normal. BONES: There are no osseous destructive lesions.. ADDITIONAL SIGNIFICANT FINDINGS: None. IMPRESSION: 1. Significant distention of the stomach which is fluid and debris-filled. 2. No evidence of bowel obstruction or appendicitis. 3. Scattered mildly distended loops of small bowel with some mucosal enhancement may relate to a nons pecific enteritis.
[2023-09-29 14:20] VITALS: BP 105/64; PULSE 84; RESP 20; TEMP 98.7
== END 2023-09-29 14:12 | disposition home or self-care (01) ==
LOC: EC 10:32
DX: K52.9 Noninfective gastroenteritis and colitis, unspecified (principal); I99.8 Other disorder of circulatory system; K21.9 Gastro-esophageal reflux disease without esophagitis; F41.9 Anxiety disorder, unspecified; F32.A Depression, unspecified; F17.200 Nicotine dependence, unspecified, uncomplicated; F12.90 Cannabis use, unspecified, uncomplicated; Z79.899 Other long term (current) drug therapy; Z20.822 Contact with and (suspected) exposure to COVID-19
CPT/HCPCS: 99284; 96374; 96375 ×3; 96361 ×2; 36415; 93005; 80053; 83690; 84484; 85025; 81001; 87636; 74177; J1200; J2765; J3490; J1885; Q9967

== ENCOUNTER → 2024-08-15 | Outpatient (CLI) | payer OTHER ==
--- NOTE | 2024-08-15 11:51 | XR ---
EXAMINATION TYPE: XR chest 2V DATE OF EXAM: 08/15/2024 11:16 AM COMPARISON: 07/02/2022 CLINICAL INDICATION: Male, 44 years old with history of R07.9 CHEST PAIN Z72.0 TOBACCO USE, , TECHNIQUE: Frontal and lateral views FINDINGS: The cardiomediastinal silhouette, aorta, and pulmonary vasculature are within normal limits. Mild hyp erinflation. Lungs and pleural spaces are clear. IMPRESSION: Mild hyperinflation may relate to depth of inspiration and underlying emphysema. Otherwise, no acute process. [facility], Workstation: [id number] ALBERTO, 08/15/2024 11:49 AM
== END | disposition home or self-care (01) ==
LOC: RADXRMAIN 10:46
DX: J43.9 Emphysema, unspecified (principal); R07.9 Chest pain, unspecified; Z72.0 Tobacco use
CPT/HCPCS: 71046

== ENCOUNTER → 2024-10-02 | Outpatient (CLI) | payer OTHER ==
--- NOTE | 2024-10-02 08:09 | CT ---
EXAMINATION TYPE: CT chest wo con DATE OF EXAM: 10/02/2024 COMPARISON: Chest CT May 28, 2021 HISTORY: cough CT DLP: 279.4 mGycm. Automated Exposure Control for Dose Reduction was Utilized. TECHNIQUE: CT scan of the thorax is performed without IV contrast. FINDINGS: LUNGS: Mild underlying emphysematous change greatest in the lung apices. Occasional micronodule. Ther e is for reference 4 mm peripheral calcified left upper lobe nodule axial image 13 redemonstrated. No greater than 6 mm noncalcified pulmonary nodules. No focal consolidation. No pleural effusion or pne umothorax seen bilaterally. MEDIASTINUM: Lack of IV contrast is noted to limit evaluation for mediastinal and especially hilar ad enopathy. There are no definitive greater than 1 cm mediastinal lymph nodes. No cardiomegaly or per icardial effusion is seen. OTHER: Surgical change at the level of diaphragmatic hiatus is redemonstrated. IMPRESSION: Mild emphysematous change without suspicious acute pulmonary process or infiltrate. [facility], , 10/02/2024 8:07 AM
== END | disposition home or self-care (01) ==
LOC: RADCTMAIN 06:48
PROVIDERS: ATTEND Internal Medicine Critical Care Medicine
DX: J43.9 Emphysema, unspecified (principal)
CPT/HCPCS: 71250

== ENCOUNTER 2024-11-30 18:39 | Emergency (ER) | payer OTHER ==
[2024-11-30 18:49] VITALS: TEMP 98.1
[2024-11-30] MEDS: SODIUM CHLORIDE 0.9% 1,000 ML IV STA (19:48)
--- NOTE | 2024-11-30 19:56 | ED ---
General Adult HPI - General Chief complaint: Dizziness Stated complaint: BRONSON Time Seen by Provider: 11/30/24 18:40 Source: patient, RN notes reviewed, old records reviewed Mode of arrival: EMS Limitations: no limitations - History of Present Illness Initial comments: 44-year-old male presenting with lightheadedness, vertigo which has been ongoing for the past several weeks. No headache. No focal numbness or weakness. No URI symptoms currently. No chest pain or dyspnea. Patient admits to possible dehydration. He denies vomiting. Denies abdominal pain. Denies diarrhea. - Related Data Home Medications Medication Instructions Recorded Confirmed Bictegrav/Emtricit/Tenofov Ala 1 tab PO DAILY@1400 08/31/20 01/29/22 [Biktarvy 50-200-25 mg Tablet] Ergocalciferol (Vitamin D2) 1,250 mcg PO TH 10/08/20 01/29/22 [Vitamin D2 (50,000 Iu)] DULoxetine HCL [Cymbalta] 120 mg PO DAILY 10/15/21 01/29/22 Omeprazole [PriLOSEC] 40 mg PO DAILY 10/15/21 01/29/22 buPROPion XL [Wellbutrin XL] 150 mg PO DAILY 01/29/22 01/29/22 Previous Rx's Medication Instructions Recorded Ondansetron Odt [Zofran ODT] 4 mg PO Q8HR PRN #12 tab 05/11/19 Aspirin 81 mg PO DAILY 10 Days #10 tab 01/30/22 Nitroglycerin Sl Tabs [Nitrostat] 0.4 mg SUBLINGUAL Q5M PRN #10 tab 01/30/22 Ondansetron Odt [Zofran Odt] 4 mg PO Q8HR PRN #10 tab 09/29/23 Allergies Allergy/AdvReac Type Severity Reaction Status Date / Time No Known Allergies Allergy Verified 09/29/23 10:40 Review of Systems ROS Statement: Those systems with pertinent positive or pertinent negative responses have been documented in the HPI. ROS Other: All systems not noted in ROS Statement are negative. Past Medical History Past Medical History: GERD/Reflux Additional Past Medical History / Comment(s): nausea, HIV. HIATAL HERNIA, Last CD4 count 301 History of Any Multi-Drug Resistant Organisms: None Reported Past Surgical History: Cholecystectomy, Hernia Repair Additional Past Surgical History / Comment(s): Colonoscopy/EGD. UPPER TEETH REMOVED, darrell Past Anesthesia/Blood Transfusion Reactions: No Reported Reaction Past Psychological History: Anxiety, Depression Smoking Status: Current every day smoker Past Alcohol Use History: None Reported Past Drug Use History: Marijuana - Past Family History Father Family Medical History: Coronary Artery Disease (CAD), Hypertension, Myocardial Infarction ([place]) Mother History Unknown: Yes Family Medical History: Cancer Additional Family Medical History / Comment(s): LUNG CANCER General Exam Limitations: no limitations General appearance: alert, in no apparent distress Head exam: Present: atraumatic, normocephalic Eye exam: Present: normal appearance, PERRL. Absent: nystagmus, periorbital swelling, periorbital tenderness ENT exam: Present: mucous membranes dry Neck exam: Present: normal inspection. Absent: tenderness, meningismus Respiratory exam: Present: normal lung sounds bilaterally. Absent: respiratory distress, wheezes Cardiovascular Exam: Present: regular rate, normal rhythm GI/Abdominal exam: Present: soft. Absent: distended, tenderness, guarding Extremities exam: Present: normal inspection, normal capillary refill. Absent: pedal edema Neurological exam: Present: alert, oriented X3, CN II-XII intact, other (No nystagmus, no ataxia). Absent: motor sensory deficit Psychiatric exam: Present: anxious Skin exam: Present: warm, dry, intact Course Vital Signs 11/30/24 11/30/24 18:42 18:45 Temperature 98.1 F Pulse Rate 84 94 Respiratory 24 20 Rate Blood Pressure 121/89 121/89 O2 Sat by Pulse 98 98 Oximetry Medical Decision Making - Medical Decision Making Was pt. sent in by a medical professional or institution (, PA, TRACTOR MECHANIC APPRENTICE, urgent care, hospital, or senior living...) When possible be specific @ -No Did you speak to anyone other than the patient for history (EMS, parent, family, police, friend...)? What history was obtained from this source @ -No Did you review nursing and triage notes (agree or disagree)? Why? @ -I reviewed and agree with nursing and triage notes Were old charts reviewed (outside hosp., previous admission, EMS record, old EKG, old radiological studies, urgent care reports/EKG's, senior living records)? Report findings @ -No old charts were reviewed Differential syncope EKG interpreted by me (3pts min.). @Sinus rhythm rate of 71, MO interval 141, QRS duration 84, QTc [address] segment elevation. X-rays interpreted by me (1pt min.). @ -None done CT interpreted by me (1pt min.). @ -None done U/S interpreted by me (1pt. min.). @ -None done What testing was considered but not performed or refused? (CT, X-rays, U/S, labs)? Why? @ -None What meds were considered but not given or refused? Why? @ -None Did you discuss the management of the patient with other professionals (professionals i.e. DrNancy, PA, TRACTOR MECHANIC APPRENTICE, lab, RT, psych nurse, delinquency prevention social worker, injection machine operator, teacher, motorcycle police officer, human services case manager)? Give summary @ -No Was smoking cessation discussed for >3mins.? @ -No Was critical care preformed (if so, how long)? @ -No Were there social determinants of health that impacted care today? How? (Homelessness, low income, unemployed, alcoholism, drug addiction, transportation, low edu. Level, literacy, decrease access to med. care, [place] [facility], rehab)? @ -No Was there de-escalation of care discussed even if they declined (Discuss DNR or withdrawal of care, Hospice)? DNR status @ -No What co-morbidities impacted this encounter? (DM, HTN, Smoking, COPD, CAD, Cancer, CVA, ARF, Chemo, Hep., AIDS, mental health diagnosis, sleep apnea, morbi d obesity)? @ -HIV Was patient admitted / discharged? Hospital course, mention meds given and route , prescriptions, significant lab abnormalities, going to OR and other pertinent info. @ -44-year-old male with dizziness, near syncope, dehydration. EKG sinus rhythm, normal CBC, normal CMP, vital signs stable, no ataxia, no nystagmus. Patient given IV fluid and on reevaluation is feeling significantly better. He is instructed on oral hydration and will follow-up with his primary care provider. Undiagnosed new problem with uncertain prognosis? @ -No Drug Therapy requiring intensive monitoring for toxicity (Heparin, Nitro, Insulin, Cardizem)? @ -No Were any procedures done? @ -No Diagnosis/symptom? @ -[Near syncope, dehydration Acute, or Chronic, or Acute on Chronic? @ -Acute Uncomplicated (without systemic symptoms) or Complicated (systemic symptoms)? @ -Default Side effects of treatment? @ -No Exacerbation, Progression, or Severe Exacerbation? @ -No Poses a threat to life or bodily function? How? (Chest pain, [place], [place], pneumonia, PE, COPD, DKA, ARF, appy, cholecystitis, CVA, Diverticulitis, Homicidal, Suicidal, threat to staff... and all critical care pts) @ -No - Lab Data Result diagrams: 11/30/24 19:29 11/30/24 19:29 Lab Results 11/30/24 11/30/24 11/30/24 Range/Units 19:29 19: 19: WBC 10.02 H (4.50-10.00) 10*3/uL RBC 4.48 (4.40-5.60) 10*6/uL Hgb 15.2 (13.0-17.0) g/dL Hct 42.2 (39.6-50.0) % MCV 94.2 (80.0-97.0) fL MCH 33.9 H (27.0-32.0) pg MCHC 36.0 (32.0-37.0) g/dL Plt Count 220 (140-440) 10*3/uL MPV 10.2 (9.5-12.2) fL Immature Gran % (Auto) 0.2 % Neutrophils % 70.6 % Lymphocytes % 19.7 % Monocytes % 7.4 % Eosinophils % 1.7 % Basophils % 0.4 % Immature Gran # 0.02 (0.00-0.04) 10*3/uL Neutrophils # 7.08 (1.80-7.70) 10*3/uL Lymphocytes # 1.97 (0.90-5.00) 10*3/uL Monocytes # 0.74 (0.20-1.00) 10*3/uL Eosinophils # 0.17 (0.04-0.35) 10*3/uL Basophils # 0.04 (0.00-0.10) 10*3/uL PT 11.5 (10.0-12.5) sec INR 1.0 (<1.2) APTT 24.7 (22.0-30.0) sec Sodium 141 (137-145) mmol/L Potassium 3.9 (3.5-5.1) mmol/L Chloride 103 (98-107) mmol/L Carbon Dioxide 24 (22-30) mmol/L Anion Gap 14 mmol/L BUN 15 (9-20) mg/dL Creatinine 0.87 (0.66-1.25) mg/dL Est GFR (CKD-EPI)AfAm >90 (>60 ml/min/1.73 sqM) Est GFR (CKD-EPI)NonAf >90 (>60 ml/min/1.73 sqM) Glucose 78 (74-99) mg/dL Calcium 9.8 (8.4-10.2) mg/dL Magnesium 2.1 (1.6-2.3) mg/dL Total Bilirubin 0.6 (0.2-1.3) mg/dL AST 28 (17-59) U/L ALT 25 (4-49) U/L Alkaline Phosphatase 35 L (38-126) U/L Total Protein 7.9 (6.3-8.2) g/dL Albumin 4.8 (3.5-5.0) g/dL Disposition Clinical Impression: Dehydration, Near syncope Disposition: HOME SELF-CARE Condition: Fair Instructions (If sedation given, give patient instructions): Dizziness (ED), Dehydration (ED) Is patient prescribed a controlled substance at d/c from ED?: No Referrals: Isabel Palacios DO [Primary Care Provider] - 1-2 days Time of Disposition: 20:22
[2024-11-30 20:01] LABS: Basophils # (A) 0.04 10*3/uL (0.00-0.10); Basophils % (A) 0.4 %; Eosinophils # (A) 0.17 10*3/uL (0.04-0.35); Eosinophils % (A) 1.7 %; HCT 42.2 % (39.6-50.0); HGB 15.2 g/dL (13.0-17.0); Lymphocytes # (A) 1.97 10*3/uL (0.90-5.00); Lymphocytes % (A) 19.7 %; MCH 33.9 pg (27.0-32.0); MCV 94.2 fL (80.0-97.0); Mean Platelet Volume 10.2 fL (9.5-12.2); Monocytes # (A) 0.74 10*3/uL (0.20-1.00); Monocytes % (A) 7.4 %; Neutrophils # (A) 7.08 10*3/uL (1.80-7.70); Neutrophils % (A) 70.6 %; Platelet Count 220 10*3/uL (140-440); RBC 4.48 10*6/uL (4.40-5.60); RDW 13.6 % (11.5-14.5); WBC 10.02 10*3/uL (4.50-10.00)
[2024-11-30 20:14] LABS: Partial Thromboplastin Time 24.7 sec (22.0-30.0); Prothrombin Time 11.5 sec (10.0-12.5)
[2024-11-30 20:19] LABS: ALT 25 U/L (4-49); AST 28 U/L (17-59); African American GFR (CKD) >90 (>60 ml/min/1.73 sqM); Albumin 4.8 g/dL (3.5-5.0); Alkaline Phosphatase 35 U/L (38-126); Anion Gap 14 mmol/L; Blood Urea Nitrogen 15 mg/dL (9-20); Calcium 9.8 mg/dL (8.4-10.2); Carbon Dioxide 24 mmol/L (22-30); Chloride 103 mmol/L (98-107); Glucose 78 mg/dL (74-99); Magnesium 2.1 mg/dL (1.6-2.3); Non-African American GFR(CKD) >90 (>60 ml/min/1.73 sqM); Potassium 3.9 mmol/L (3.5-5.1); Sodium 141 mmol/L (137-145); Total Bilirubin 0.6 mg/dL (0.2-1.3); Total Protein 7.9 g/dL (6.3-8.2)
[2024-11-30] MEDS: MECLIZINE 25 MG TAB PO STA (20:29)
[2024-11-30] MEDS: MECLIZINE 12.5 MG TAB PO STA (20:30)
[2024-11-30 20:42] VITALS: BP 113/78; PULSE 91; RESP 18
== END 2024-11-30 20:40 | disposition home or self-care (01) ==
LOC: EC 18:39
DX: E86.0 Dehydration (principal); R55 Syncope and collapse; Z21 Asymptomatic human immunodeficiency virus [HIV] infection status; F17.200 Nicotine dependence, unspecified, uncomplicated
CPT/HCPCS: 36415; 80053; 83735; 85025; 85610; 85730; 93005; 96360; 99284